=== PATIENT | male | born 1955 | race Caucasian/White ===

== ENCOUNTER → 2016-10-12 | Outpatient (REF) | payer BC ==
[~2016-10-12] MED LIST: ASPI1TAB PO; ASPI81CH PO; ASPI81TA21 PO; ATEN25TA PO; ATOR40TA PO; CARV3.12 PO; INSUH10VL SC; INSULANT SC; K-TA1TAB PO; LANTINJ4 SC; LASI40TA PO; METF500T4 PO; NICO21PAT TD; NITR4TASL SL; NOVOINJ3 SC; RAMI10CA PO; novolog SQ
[2016-10-12 17:15] LABS: ALBUMIN 3.5 GM/DL (3.2-5.2); ALBUMIN/GLOBULIN RATIO 1.03 (1.00-1.93); BILIRUBIN,TOTAL 0.3 MG/DL (0.2-1.0); CALCIUM LEVEL 8.6 MG/DL (8.8-10.2); CREATININE FOR GFR 1.51 MG/DL (0.70-1.30); GLOMERULAR FILTRATION RATE 50.1 (>49); POTASSIUM SERUM 4.6 MEQ/L (3.5-5.1); TOTAL PROTEIN 6.9 GM/DL (6.4-8.2)
== END ==
LOC: M SFHCLACO 08:04
PROVIDERS: ATTEND Physician Assistant
DX: I10 Essential (primary) hypertension (principal); E78.2 Mixed hyperlipidemia; E11.65 Type 2 diabetes mellitus with hyperglycemia

== ENCOUNTER → 2017-01-16 | Outpatient (REF) | payer BC ==
[2017-01-16 15:58] LABS: ALBUMIN 3.5 GM/DL (3.2-5.2); ALBUMIN/GLOBULIN RATIO 1.09 (1.00-1.93); BILIRUBIN,TOTAL 0.3 MG/DL (0.2-1.0); CALCIUM LEVEL 8.8 MG/DL (8.8-10.2); CREATININE FOR GFR 1.43 MG/DL (0.70-1.30); GLOMERULAR FILTRATION RATE 53.3 (>49); POTASSIUM SERUM 4.4 MEQ/L (3.5-5.1); TOTAL PROTEIN 6.7 GM/DL (6.4-8.2)
== END ==
LOC: M SFHCLACO 08:02
PROVIDERS: ATTEND Physician Assistant
DX: I10 Essential (primary) hypertension (principal); E78.2 Mixed hyperlipidemia; E11.65 Type 2 diabetes mellitus with hyperglycemia

== ENCOUNTER → 2017-08-23 | Outpatient (REF) | payer OTHER, MEDICAID ==
[~2017-08-23] MED LIST changes: -ATOR40TA PO; +ATOR40TA75 PO
[2017-08-23 15:45] LABS: ALBUMIN 3.2 GM/DL (3.2-5.2); ALBUMIN/GLOBULIN RATIO 0.97 (1.00-1.93); ALKALINE PHOSPHATASE 99 U/L (45-117); ALT/SGPT 21 U/L (12-78); ANION GAP 5 MEQ/L (8-16); AST/SGOT 20 U/L (7-37); BILIRUBIN,TOTAL 0.2 MG/DL (0.2-1.0); BLOOD UREA NITROGEN 30 MG/DL (7-18); CALCIUM LEVEL 8.8 MG/DL (8.8-10.2); CARBON DIOXIDE LEVEL 28 MEQ/L (21-32); CHLORIDE LEVEL 115 MEQ/L (98-107); CHOLESTEROL LEVEL 128 MG/DL (<200); CREATININE FOR GFR 1.21 MG/DL (0.70-1.30); GLOMERULAR FILTRATION RATE > 60.0 (>49); GLUCOSE, FASTING 150 MG/DL (80-110); POTASSIUM SERUM 4.1 MEQ/L (3.5-5.1); SODIUM LEVEL 148 MEQ/L (136-145); TOTAL PROTEIN 6.5 GM/DL (6.4-8.2); TRIGLYCERIDES LEVEL 119 MG/DL (<150)
== END ==
LOC: M SFHCLACO 09:07
PROVIDERS: ATTEND Physician Assistant
DX: I10 Essential (primary) hypertension (principal); E78.2 Mixed hyperlipidemia; E11.65 Type 2 diabetes mellitus with hyperglycemia

== ENCOUNTER → 2018-03-19 | Outpatient (REF) | payer OTHER, MEDICAID ==
[2018-03-19 15:27] LABS: ALBUMIN 3.3 GM/DL (3.2-5.2); ALBUMIN/GLOBULIN RATIO 0.97 (1.00-1.93); ALKALINE PHOSPHATASE 120 U/L (45-117); ALT/SGPT 35 U/L (12-78); ANION GAP 8 MEQ/L (8-16); AST/SGOT 33 U/L (7-37); BILIRUBIN,TOTAL 0.2 MG/DL (0.2-1.0); BLOOD UREA NITROGEN 41 MG/DL (7-18); CALCIUM LEVEL 8.2 MG/DL (8.8-10.2); CARBON DIOXIDE LEVEL 28 MEQ/L (21-32); CHLORIDE LEVEL 114 MEQ/L (98-107); CHOLESTEROL LEVEL 108 MG/DL (<200); CHOLESTEROL RISK RATIO 3.375 (<5); GLOMERULAR FILTRATION RATE 50.2 (>49); GLUCOSE, FASTING 93 MG/DL (70-100); HDL CHOLESTEROL 32 MG/DL (>40); LDL CHOLESTEROL 48.8 MG/DL (<100); NON-HDL-C 76 MG/DL; POTASSIUM SERUM 4.5 MEQ/L (3.5-5.1); SODIUM LEVEL 150 MEQ/L (136-145); TOTAL PROTEIN 6.7 GM/DL (6.4-8.2); TRIGLYCERIDES LEVEL 136 MG/DL (<150)
[2018-03-19 15:30] LABS: ESTIMATED AVERAGE GLUCOSE 189 MG/DL (60-110); HEMOGLOBIN A1c 8.2 %
== END ==
LOC: M SFHCLACO 08:07
DX: I10 Essential (primary) hypertension (principal); E78.2 Mixed hyperlipidemia
CPT/HCPCS: 80053

== ENCOUNTER → 2018-04-25 | Outpatient (REF) | payer OTHER, MEDICAID ==
[2018-04-25 15:00] LABS: ANION GAP 9 MEQ/L (8-16); BLOOD UREA NITROGEN 65 MG/DL (7-18); CALCIUM LEVEL 8.8 MG/DL (8.8-10.2); CARBON DIOXIDE LEVEL 24 MEQ/L (21-32); CHLORIDE LEVEL 115 MEQ/L (98-107); CREATININE FOR GFR 2.14 MG/DL (0.70-1.30); GLOMERULAR FILTRATION RATE 33.3 (>49); GLUCOSE, FASTING 57 MG/DL (70-100); POTASSIUM SERUM 4.5 MEQ/L (3.5-5.1); SODIUM LEVEL 148 MEQ/L (136-145)
== END ==
LOC: M SFHCLACO 08:25
DX: R60.9 Edema, unspecified (principal)
CPT/HCPCS: 80048

== ENCOUNTER → 2019-02-06 | Outpatient (CLI) | payer MEDICARE, MEDICAID ==
[~2019-02-06] MED LIST changes: -ASPI1TAB PO; -ASPI81CH PO; +ASPI81CH49 PO; +ASPI81TA26 PO; -LASI40TA PO; +LASI40TA9 PO; +NICO21DI3 TD; -NICO21PAT TD; -RAMI10CA PO; +RAMI1CAP26 PO
--- NOTE | 2019-02-06 12:59 | REP ---
Duplex carotid sonography: History: Occlusion and stenosis. Comparison study is from March 29, 2015. Findings: Antegrade flow was observed in both vertebral arteries. Right carotid: The right common carotid artery is unremarkable on two-dimensional scanning. Mild intimal thickening is seen. There is mixed plaquing in the bulb, proximal ICA and proximal ECA on the right side. Color flow and spectral Doppler interrogation demonstrate elevated systolic and mildly elevated diastolic velocities in the ICA on the right side. Velocity chart right carotid: CCA PSV 117 cm/s ICA PSV 166 cm/s ICA EDV 48 cm/s ECA PSV 85 cm/s Right ICA/CCA ratio 1.4. Impression: Elevated systolic velocities in the ICA consistent with 50-79% category narrowing, probably near the lower end of this range. Velocities have increased in the right ICA compared to the prior study. Left carotid: Left common carotid artery shows diffuse intimal thickening. There is moderate mixed plaquing in the bulb and proximal ICA on the left side on two-dimensional scanning. Color flow and spectral Doppler interrogation show normal waveforms and velocities unchanged from the prior study. Velocity chart left carotid: CCA PSV 54 cm/s ICA PSV 99 cm/s ICA EDV 31 cm/s ECA PSV 124 cm/s Left ICA/CCA ratio 1.8. Impression: 16-49% category narrowing in the left ICA by Doppler velocity criteria, probably near the upper end of this range. Electronically Signed by Tao Arrington MD 02/06/2019 02:03 P
== END ==
LOC: M RAD 10:00
PROVIDERS: ATTEND Physician Assistant
DX: I65.23 Occlusion and stenosis of bilateral carotid arteries (principal)

== ENCOUNTER → 2019-02-13 | Outpatient (REF) | payer MEDICARE | LOC: M SFHCLACO 15:27 | PROVIDERS: ATTEND Physician Assistant | DX: L02.93 Carbuncle, unspecified (principal) | CPT/HCPCS: 87070; 87077; 87186; G0463 ==

== ENCOUNTER → 2019-08-01 | Outpatient (CLI) | payer MEDICAID, MEDICARE ==
[~2019-08-01] MED LIST changes: +METF-791 PO; -METF500T4 PO
--- NOTE | 2019-08-01 09:01 | REP ---
Duplex extremity venous ultrasound: Right lower extremity. History: Cellulitis right lower limb. Rule out DVT. Findings: The deep veins are anechoic and fully compressible from the groin to the popliteal fossa in the right lower extremity. Color flow imaging is homogeneous. Spectral Doppler interrogation demonstrates intact respiratory variation in flow and normal manual augmentation of flow. There is no evidence of deep vein thrombosis. Atherosclerotic calcific plaquing is noted incidentally in the arterial system adjacent to the veins. Impression: Negative right lower extremity duplex venous ultrasound. No evidence of deep vein thrombosis. Electronically Signed by Tao Arrington MD 08/01/2019 08:53 A
== END ==
LOC: M RAD 07:57
PROVIDERS: ATTEND Physician Assistant
DX: L03.115 Cellulitis of right lower limb (principal); M79.604 Pain in right leg

== ENCOUNTER → 2019-08-14 | Outpatient (CLI) | payer MEDICAID, MEDICARE ==
--- NOTE | 2019-08-15 07:22 | REP ---
BILATERAL LOWER EXTREMITY DUPLEX DOPPLER ARTERIAL ULTRASOUND: Real-time ultrasound evaluation and duplex Doppler interrogation of bilateral lower arterial systems is performed. BUTCH right is 0.50 and left 0.68. There are bilateral external iliac artery stents present which are patent, with normal flow velocities. Extensive calcific and soft plaque is seen throughout the bilateral lower extremity arterial systems. There appears to be stenosis of the bilateral profunda arteries more so on the right than on the left. There also appears to be stenosis of the mid superficial femoral arteries bilaterally, left greater than right. There is occlusion of the right popliteal artery with reconstitution distally via the proximal anterior tibial artery. There is reversal of flow at that level. Biphasic wave forms are seen in the right common femoral artery and profunda with monophasic wave forms more distally. Biphasic wave forms are seen in the left common femoral, profunda and superficial femoral arteries with monophasic wave forms distal to that except in the posterior tibial artery. Right Left Common femoral artery 94.9 cm/s 168 cm/s Profunda 390 cm/s 280 cm/s Proximal SFA 108 cm/s 147 cm/s Mid SFA 221 cm/s 382 cm/s Distal SFA 48.3 cm/s 157 cm/s Popliteal Occluded 107 cm/s Proximal OSMEL 69.4 cm/s reversed 67.7 cm/s Tibioperoneal trunk 40 cm/s 66.8 cm/s Proximal FENCE SETTER 14.7 cm/s 74.6 cm/s Distal FENCE SETTER 25.2 cm/s 40 cm/s Distal OSMEL 20.3 cm/s 21.6 cm/s IMPRESSION: Significant plaquing bilaterally diffusely with suspected stenosis of the bilateral profunda arteries, right greater than left, and mid superficial femoral arteries left greater than right. There is occlusion of the right popliteal artery with reconstitution of the proximal right anterior tibial artery. Electronically Signed by Christiano Juarez MD 08/15/2019 05:04 P
== END ==
LOC: M RAD 14:22
PROVIDERS: ATTEND Surgery Vascular Surgery
DX: I70.203 Unspecified atherosclerosis of native arteries of extremities, bilateral legs (principal); I70.235 Atherosclerosis of native arteries of right leg with ulceration of other part of foot
CPT/HCPCS: 93925; G0463

== ENCOUNTER → 2019-08-18 | Outpatient (CLI) | payer MEDICARE ==
[2019-08-18 10:17] LABS: HEMATOCRIT 40.7 % (42.0-52.0); HEMOGLOBIN 12.7 g/dl (13.5-17.5); MEAN CORPUSCULAR HEMOGLOBIN 30.8 pg (27.0-33.0); MEAN CORPUSCULAR HGB CONC 31.2 g/dl (32.0-36.5); MEAN CORPUSCULAR VOLUME 98.8 fl (80.0-96.0); PLATELET COUNT, AUTOMATED 124 10^3/uL (150-450); RED BLOOD COUNT 4.12 10^6/uL (4.30-6.10); WHITE BLOOD COUNT 8.6 10^3/uL (4.0-10.0)
[2019-08-18 10:31] LABS: CALCIUM LEVEL 8.6 MG/DL (8.8-10.2); CREATININE FOR GFR 2.04 MG/DL (0.70-1.30); GLOMERULAR FILTRATION RATE 35.1 (>49); POTASSIUM SERUM 5.1 MEQ/L (3.5-5.1)
== END ==
LOC: M LAB 09:31
PROVIDERS: ATTEND Physician Assistant
DX: Z01.818 Encounter for other preprocedural examination (principal)

== ENCOUNTER → 2019-09-01 | Outpatient (CLI) | payer MEDICARE ==
[~2019-09-01] MED LIST changes: +ACETAMINOPHEN 325 MG TAB As Ordered ONE; +HEPARIN 1,000 UNITS/ML 10ML VIAL (FOR RADIOLOGY& DIALYSIS ONLY) As Ordered ONE; +ISOVUE-300 61% 50ML VIAL (Q9967) As Ordered ONE; +LIDOCAINE 1% MDV 20ML VIAL As Ordered ONE; +MIDAZOLAM INJ 2 MG/2 ML VIAL (J2250) As Ordered ONE; +ceFAZolin 1GM INJ (J0690 PER 500MG) As Ordered ONE; +fentaNYL 100 MCG/2 ML INJECTION (J3010) As Ordered ONE
[2019-09-01 09:14] LABS: HEMATOCRIT 42.7 % (42.0-52.0); HEMOGLOBIN 13.1 g/dl (13.5-17.5); MEAN CORPUSCULAR HEMOGLOBIN 30.3 pg (27.0-33.0); MEAN CORPUSCULAR HGB CONC 30.7 g/dl (32.0-36.5); MEAN CORPUSCULAR VOLUME 98.8 fl (80.0-96.0); PLATELET COUNT, AUTOMATED 119 10^3/uL (150-450); RED BLOOD COUNT 4.32 10^6/uL (4.30-6.10); WHITE BLOOD COUNT 8.2 10^3/uL (4.0-10.0)
[2019-09-01 09:35] LABS: CREATININE FOR GFR 1.7 MG/DL (0.70-1.30); GLOMERULAR FILTRATION RATE 43.3 (>49); POTASSIUM SERUM 4.5 MEQ/L (3.5-5.1)
--- NOTE | 2019-09-01 12:45 | ROOPDOC ---
[facility] Report Of Operation Report of Operation DATE OF PROCEDURE: 09/01/19 PREPROCEDURE DIAGNOSES: Right lower extremity atherosclerosis of the [place] arteries with nonhealing wounds right toes POSTPROCEDURE DIAGNOSES: Same PROCEDURE: 1. Ultrasound-guided access left femoral limb of aortobifemoral bypass graft 2. Aortoiliac arteriogram 3. Right lower extremity arteriogram and runoff through selection of right limb of aortobifemoral bypass graft, right superficial femoral artery 4. Angioplasty right distal common femoral artery and proximal SFA 5. Completion arteriograms 6. Mynx closure left femoral limb of aortobifemoral bypass graft SURGEON: Vern Gould MD ANESTHESIA: Local anesthesia 12 mL lidocaine. Monitored intravenous conscious sedation was supervised by Dr. Gould. The patient was independently monitored by registered nurse assigned to the Department of radiology using automated blood pressure, EKG, and pulse oximetry. The detailed sedation record is permanently housed in the hospital information system. The following is a brief sedation record: Ancef 2 g IV, Fentanyl 50 g IV, Versed 1 mg IV, heparin 5000 units IV. INDICATION FOR PROCEDURE: Mr. Medina is a very pleasant 64-year-old gentleman with an extensive past medical history of peripheral vascular disease. He has had interventions on his lower extremities in the past, but is unclear what they were. He says they were procedures to open up blockages in the groins. Based on this we were unsure what previous surgery had been done, but we discussed that there may be multiple options to try to revascularize the right lower extremity depending on what we found on arteriogram. We also discussed that he may need an open procedure but we would attempt to do everything endovascularly if possible. Risks benefits and alternatives to an arteriogram potential intervention were explained to the patient. He was agreeable to proceed. Informed consent was obtained. INTERPRETATION: 1. The patient has a patent aortobifemoral bypass. The orientation of the bypass is unusual, with the left limb in the typical straight orientation with anastomosis to the common femoral artery, but the right limb is unusual in that it is tunneled with the left limb towards the left groin and then crosses over the midline suprapubic area for a right femoral anastomosis. 2. The right femoral anastomosis is widely patent. There is good runoff through the profunda. There is an 80% focal stenosis distal to the anastomosis at the distal common femoral/proximal superficial femoral artery. 3. The superficial femoral arteries calcified throughout, but no significant stenoses are noted distal to the origin until Hank's canal with there is a great deal of heavy calcified plaque, and several focal near lucid stenoses. 4. Popliteal arteries patent at its origin but then occludes for 2 cm in the proximal mid aspect, and reconstitutes through collaterals with good tibial runoff. 5. After angioplasty of the distal common femoral and proximal superficial femoral artery with a 4 x 100 Deshawn balloon, there was a dramatic improvement in inflow through the SFA and we were able to maintain flow through the profunda as well. 6. We were able to cross through the stenoses in the distal SFA at Hank's canal and through the chronic total occlusion in the popliteal artery, but we were unable to track a balloon down to angioplasty due to limitations from a physics standpoint from going up and over through the tight bifurcation of the bypass graft. REPORT OF OPERATION: The patient was brought to the angiographic suite in stable condition. His bilateral groins were prepped and draped in a sterile fashion. A timeout was performed. Antibiotics and sedation were administered without complication. Upon examination with ultrasound in the left groin, it was difficult to tell what type of bypass the patient had had. I was able to track from the anastomosis up over the left limb of the bypass graft, but then sought a second limb it was unclear if this was a loop or separate graft. It did not appear to connect the graft anastomosed to the left femoral, still we were unclear initially what type of surgery the patient had for revascularization in the past. We therefore placed a wire in a microcatheter, and through this access a Glidewire was advanced into the mid aorta and the sheath was exchanged over the wire for a 4 [place] sheath. The sheath was flushed with saline. An Omni flushed catheter was advanced into the mid aorta and an arteriogram was performed. This clarified the orientation of the bypass, please see interpretation above. Upon noting the stenosis in the distal common femoral and proximal SFA, we felt it would be difficult to try to access antegrade at the bypass graft on the right due to the challenges from a physics standpoint trying to pass the wire into the SFA from that angle, as it would prefer to track into the profunda. We therefore decided to try to go up and over the bifurcation to obtain better images. A Glidewire and Omni flushed catheter were used to go up and over the bifurcation of the bypass graft and we were able to track the catheter down to the distal graft just proximal to the anastomosis. From this access we performed an arteriogram, please see findings above. Next we were able to use an angled glide cath and the Glidewire to select the right SFA. This took a considerable amount of time, due to the stenosis. Eventually, we were able to navigate the wire away from the profunda and into the SFA. We then performed additional runoff images of the right lower extremity. Please see findings above. Next, we attempted to cross the chronic total occlusion in the right popliteal artery with an O18 Glidewire advantage. I was able to navigate the wire down through the chronic occlusion, but then could not track a balloon over the wire. I felt the only option we have had to try to get a balloon to pass down would be to get a sheath up and over within the graft. I had a feeling this would be impossible, but we thought we would try at least once. I used Amplatz superstiff to try to go up and over the bifurcation but it was unsuccessful and we could not track the sheath up and over. With this attempt aborted, I again tried to track the balloon down over the Glidewire advantage after re-crossing and exchanging through the glide cath. We were not able to pass the balloon distally. However, I was able to pass a 4 x 100 Deshawn balloon across the anastomosis and the stenosis in the SFA. We angioplastied for three-minute inflations A and following this there was improvement in inflow through the SFA. No extravasation, dissection, or embolization was noted. The profunda was still patent. Unfortunately, I do not think this will be enough to heal the patient's foot and he will need additional intervention. Unfortunately, we utilized a significant amount of time today trying to intervene from the left side, and I think we will need to bring the patient back to perform an antegrade access on the right SFA and see if we can treat the distal disease. Additionally, I do not want to give him a significant amount of additional contrast due to his renal insufficiency. It would be better if he had a break for hydration in between procedures. A minx closure device was deployed at the left groin after exchanging the sheath over the Glidewire for 5 Australian sheath and flushed with saline. Pressure was held for 10 minutes for good hemostasis and the patient was taken to recovery in stable condition. This was a challenging case from a physics standpoint but the patient did very well and there were no com plications. We used as little IV dye is possible due to his renal insufficiency and gave him considerable hydration during the case. ESTIMATED BLOOD LOSS: Approximately 10 mL. COMPLICATIONS: None. PLAN: Our plan will be to bring the patient back for an attempted right lower extremity angioplasty of the distal superficial femoral artery and mid popliteal artery occlusion from a right superficial femoral artery antegrade access. Okay to resume home medications. Patient should stay hydrated after procedure. VERN GOULD MD Sep 01, 2019 12:45
[2019-09-01 16:10] VITALS: BP 116/66
== END ==
LOC: M IRPRO 08:46
PROVIDERS: ATTEND Surgery Vascular Surgery
DX: I70.235 Atherosclerosis of native arteries of right leg with ulceration of other part of foot (principal); L97.519 Non-pressure chronic ulcer of other part of right foot with unspecified severity; I70.92 Chronic total occlusion of artery of the extremities
CPT/HCPCS: 37224; 75710; 80048; 85027; 99152; 99153; C1725; C1729; C1760; C1769; C1887; C1894; J0690; J2250; J3010; Q9967

== ENCOUNTER → 2019-09-05 | Outpatient (CLI) | payer MEDICARE ==
[~2019-09-05] MED LIST changes: -ACETAMINOPHEN 325 MG TAB As Ordered ONE; -ceFAZolin 1GM INJ (J0690 PER 500MG) As Ordered ONE
--- NOTE | 2019-09-05 15:38 | ROOPDOC ---
[facility] Report Of Operation Report of Operation DATE OF PROCEDURE: 09/05/19 PREPROCEDURE DIAGNOSES: Atherosclerosis the teller vessels of the right lower extremity with nonhealing wounds right toes POSTPROCEDURE DIAGNOSES: Same PROCEDURE: 1. Antegrade access right superficial femoral artery 2. Right lower extremity arteriogram, selection of popliteal artery and runoff 3. Angioplasty right superficial femoral artery and popliteal artery with 4 x 100 [place] balloon and 5 x 200 [place] balloon 4. Angioplasty right anterior tibial artery with 3 x 220 Deshawn balloon 5. Angioplasty distal anterior tibial artery and dorsal pedis artery with 2 x 100 Deshawn balloon 6. Completion arteriograms 7. Mynx closure right superficial femoral artery SURGEON: Vern Gould MD ANESTHESIA: Local anesthesia 5 mL lidocaine. Moderate intravenous conscious sedation was supervised by Dr. Gould. The patient was independently monitored by registered nurse assigned to the Department of radiology using automated blood pressure, EKG, pulse oximetry. The detailed sedation record is permanently stored in the hospital information system. The following is a brief sedation record: Start time 13:39, stop time 14:49, fentanyl 50 g IV, Versed 1 mg IV, heparin 5000 units IV. CONTRAST: 29 mL Isovue-300 INDICATION FOR PROCEDURE: Mr. Medina is a very pleasant 64-year-old patient with severe right lower extremity peripheral vascular disease and nonhealing ulcerations of the second third toes. He underwent an arteriogram and angioplasty of the right common femoral and superficial femoral artery from a left femoral access up and over through his aortobifem bypass graft to improve flow through the anastomosis. Unfortunately, due to limitations of going up and over through bypass graft, we were not able to access and cross the chronic total occlusion and the popliteal artery or treat the distal SFA disease or tibial disease. We'll bring the patient back today for an antegrade access the right lower extremity to try to open up the distal SFA stenosis, the popliteal artery total occlusion, and anterior tibial artery stenosis. Risks benefits and alternatives were explained to the patient he was agreeable to proceed. Informed consent was obtained. INTERPRETATION: 1. There is heavy plaque with variable 30-50% stenosis through Hank's canal the distal SFA. The popliteal arteries patent ocdal-mad-xrug, then there is a 3 cm occlusion in the midportion and this reconstitutes through collateral circulation below the knee. The main runoff to the foot is through the posterior tibial artery and peroneal, but the anterior tibial artery is thready. 2. After crossing the chronic total occlusion in the right popliteal artery and angioplasty of the distal SFA and popliteal artery, there is widely patent inflow through both. Less than 20% residual stenosis is present in the areas of heaviest plaque. No dissection embolization or extravasation are noted. 3. After angioplasty of the anterior tibial artery dorsal pedis artery, there is widely patent inflow through 3 vessels to the foot with some microvascular disease noted in the distal dorsal pedis artery. No embolization dissection or extravasation is noted. REPORT OF PROCEDURE: Mr. Medina was brought to the angiographic suite in stable condition and placed supine on the fluoroscopic table. His bilateral groins were prepped and draped in a sterile fashion. A timeout was performed. Sedation was administered without complication. Local anesthesia was administered to the skin and subcutaneous tissue over the right common femoral and superficial femoral artery. A microneedle was used to access the superficial femoral artery under ultrasound guidance just distal to the femoral limit the bypass graft anastomosis. A wire was passed through this access under fluoroscopic guidance the needle was removed. A micro-sheath was placed and a Glidewire was advanced through this under fluoroscopic guidance to the distal SFA. We then exchange the sheath for 6 Hebrew sheath over the wire using a Seldinger technique and flushed the sheath with saline. Arteriogram was performed. Please see interpretation above. An Omni flushed catheter was used to help traverse the distal aspect of the SFA and then to cross through the total occlusion and the popliteal artery. Once we felt we had her catheter in the true lumen through the occlusion, a injection of contrast confirmed we're in the true lumen with no embolization. We then angioplasties across the area with a 4 x 100 [place] balloon and sequential three-minute inflations. Following this was a dramatic improvement in flow but still some residual stenosis and we selected a 5 x 200 [place] balloon angioplasty across from the distal popliteal artery to Hank's canal. Three- minute inflation was performed and following this there is a dramatic improvement in flow. There was still a little bit of residual stenosis in the areas of heaviest plaque, but overall this is significantly improved. Next, we use a Glidewire advantage to cross into the anterior tibial artery and to cross distally. Unfortunately, was difficult for the wire to past likely due to heavy calcified near occlusions. A [place] catheter helped just across into the dorsal pedis artery. We then angioplasty along the length of the vessel with a 3 x 200 Deshawn balloon. We initially had to start high and work our way down nor to get the balloon past the near occlusions. Eventually we were able to three- minute inflations across the entire vessel. Following this the vessel was widely patent but there still was limited outflow due to some disease in the dorsal pedis artery. We advanced her wire into the midfoot and angioplasty the distal anterior tibial artery and proximal dorsal pedis artery with 2 x 100 Deshawn balloon for three-minute inflation. Following this was a dramatic improvement in flow with 3 vessel runoff to the foot however there is still some microvascular disease noted more distally in the dorsal pedis artery, but this is not amenable to endovascular intervention. I think this mormon of flow should help the patient and hopefully will allow his foot to heal. We concluded her procedure. Applying a Mynx closure device in the right superficial femoral artery and pressure was held for 10 minutes for good hemostasis. The patient was taken to recovery in stable condition. ESTIMATED BLOOD LOSS: Approximately 5 mL. COMPLICATIONS: None. PLAN: Resume home medications. Follow up in clinic to check perfusion and right and left groin access sites. Patient should follow up with his pcu rn regarding the second and third toe nonhealing ulcerations. VERN GOULD MD Sep 05, 2019 15:38
[2019-09-05 17:53] VITALS: BP 151/67
== END ==
LOC: M IRPRO 12:06
PROVIDERS: ATTEND Surgery Vascular Surgery
DX: I70.238 Atherosclerosis of native arteries of right leg with ulceration of other part of lower leg (principal); I70.92 Chronic total occlusion of artery of the extremities; I10 Essential (primary) hypertension; E11.51 Type 2 diabetes mellitus with diabetic peripheral angiopathy without gangrene; E78.00 Pure hypercholesterolemia, unspecified; F17.210 Nicotine dependence, cigarettes, uncomplicated; Z79.899 Other long term (current) drug therapy; Z79.82 Long term (current) use of aspirin; Z95.0 Presence of cardiac pacemaker; Z96.1 Presence of intraocular lens; Z98.41 Cataract extraction status, right eye; Z98.42 Cataract extraction status, left eye; Z95.5 Presence of coronary angioplasty implant and graft
CPT/HCPCS: 37224; 37228; 75710; 99152; 99153; C1725; C1729; C1760; C1769; C1887; C1894; J2250; J3010; Q9967

== ENCOUNTER → 2019-10-08 | Outpatient (CLI) | payer MEDICARE ==
[~2019-10-08] MED LIST changes: -HEPARIN 1,000 UNITS/ML 10ML VIAL (FOR RADIOLOGY& DIALYSIS ONLY) As Ordered ONE; -ISOVUE-300 61% 50ML VIAL (Q9967) As Ordered ONE; -LIDOCAINE 1% MDV 20ML VIAL As Ordered ONE; -MIDAZOLAM INJ 2 MG/2 ML VIAL (J2250) As Ordered ONE; -fentaNYL 100 MCG/2 ML INJECTION (J3010) As Ordered ONE
--- NOTE | 2019-10-08 16:13 | REP ---
ARTERIAL ULTRASOUND: Real-time ultrasound evaluation and duplex Doppler interrogation of bilateral lower extremity arterial systems is performed. There is a fluid collection in the right inguinal region. 8.2 x 3.6 x 1.9 cm. Velocity in the right external iliac artery is 173 cm/s. Large amount of calcified plaque in the right common femoral artery occludes the lumen and precludes evaluation. Distal to that there is diffuse monophasic wave forms. There is stenosis of the right profunda artery. No other obvious stenosis is seen distal to that and there is no arterial occlusion more distally. On the left there is an iliofemoral bypass graft which is patent with normal flow velocities. This demonstrates monophasic wave forms. There is significant calcific plaque at the bifurcation of the common femoral artery. There is significant narrowing of the left profunda artery and origin of superficial femoral artery but no compelling evidence for hemodynamically significant stenosis. Normal flow velocities are seen throughout the left lower extremity arterial system with diffuse monophasic wave forms, without diastolic flow. There is high diastolic flow throughout the right lower extremity arterial system. RIGHT LEFT Common femoral artery Obscured by calcific plaque 156 cm/s Profunda 265 cm/s 117 cm/s Proximal SFA 106 cm/s 139 cm/s Mid SFA 119 cm/s 124 cm/s Distal SFA 101 cm/s 120 cm/s Popliteal 89 cm/s 81 cm/s Proximal OSMEL 54 cm/s 37 cm/s Tibioperoneal trunk 77 cm/s 100 cm/s Proximal [employer] 111 cm/s 125 cm/s Distal [employer] 75 cm/s 86 cm/s Distal OSMEL 45 cm/s 67 cm/s Electronically Signed by Christiano Juarez MD 10/08/2019 05:41 P
== END ==
LOC: M RAD 12:38
PROVIDERS: ATTEND Physician Assistant
DX: I70.203 Unspecified atherosclerosis of native arteries of extremities, bilateral legs (principal); I70.235 Atherosclerosis of native arteries of right leg with ulceration of other part of foot; F17.200 Nicotine dependence, unspecified, uncomplicated

== ENCOUNTER → 2019-11-24 | Outpatient (REF) | payer MEDICARE ==
[~2019-11-24] MED LIST changes: +ATOR80TA59 PO; +CEPH500C PO; +FURO20TA2 PO; +HYDR-3713 PO; +POTA20TA6 PO; +SANT250O8 TOP; +TRES1INJ SC
[2019-11-24 13:56] LABS: HEMATOCRIT 38.4 % (42.0-52.0); HEMOGLOBIN 12.1 g/dl (13.5-17.5); MEAN CORPUSCULAR HGB CONC 31.5 g/dl (32.0-36.5); PLATELET COUNT, AUTOMATED 171 10^3/uL (150-450); RED BLOOD COUNT 4.04 10^6/uL (4.30-6.10); WHITE BLOOD COUNT 7.5 10^3/uL (4.0-10.0)
[2019-11-24 14:06] LABS: ALBUMIN 3.3 GM/DL (3.2-5.2); BILIRUBIN,TOTAL 0.3 MG/DL (0.2-1.0); CALCIUM LEVEL 8.8 MG/DL (8.8-10.2); CREATININE FOR GFR 1.53 MG/DL (0.70-1.30); GLOMERULAR FILTRATION RATE 48.9 (>49); POTASSIUM SERUM 5.1 MEQ/L (3.5-5.1)
== END ==
LOC: M SFHCPLAZ 11:05
PROVIDERS: ATTEND Internal Medicine
DX: Z01.818 Encounter for other preprocedural examination (principal); I73.9 Peripheral vascular disease, unspecified; I10 Essential (primary) hypertension
CPT/HCPCS: 36415; 80053; 85027; G0463

== ENCOUNTER 2019-11-26 11:00 | Day surgery (SDC) | payer MEDICARE ==
[~2019-11-26] VITALS: Ht 177.8 cm; Wt 86.2 kg
[~2019-11-26 11:00] MED LIST changes: +BUPIVACAINE HCL 0.5% 10 ML VIAL As Ordered ONE; -HYDR-3713 PO; +LIDOCAINE 1% MDV 20ML VIAL As Ordered ONE; +LIDOCAINE 1% MDV 20ML VIAL SQ PRN; +ceFAZolin SOD 2 GM in IV 1 EA IV ONE
[2019-11-26] MEDS ORDERED: LIDOCAINE 2% INJ 100 MG/5 ML SDV (FOR ANES.) As Ordered ONE (12:04)
[2019-11-26] MEDS ORDERED: ONDANSETRON 4MG/2ML VIAL (J2405) As Ordered ONE (12:04)
[2019-11-26] MEDS ORDERED: propofoL 200 MG/20 ML VIAL As Ordered ONE (12:04)
[2019-11-26] MEDS ORDERED: MIDAZOLAM INJ 2 MG/2 ML VIAL (J2250) As Ordered ONE (12:04)
[2019-11-26] MEDS ORDERED: fentaNYL 100 MCG/2 ML INJECTION (J3010) As Ordered ONE (12:05)
[2019-11-26] MEDS ORDERED: LR 1,000 ML IV ONE (14:00)
[2019-11-26] MEDS ORDERED: DEXTROSE 50% 50 ML SYRINGE As Ordered ONE (14:20)
[2019-11-26] MEDS ORDERED: DEXTROSE 50% 50 ML SYRINGE IV ONE (14:30)
[2019-11-26] MEDS ORDERED: HYDR-3713 PO (16:14)
[2019-11-26 17:50] VITALS: BP 163/72
== END 2019-11-26 17:55 | disposition home or self-care (01) ==
LOC: M SDC 11:00
PROVIDERS: ATTEND Podiatrist Foot & Ankle Surgery
DX: L89.899 Pressure ulcer of other site, unspecified stage (principal); I10 Essential (primary) hypertension; I25.2 Old myocardial infarction; E10.9 Type 1 diabetes mellitus without complications; Z79.4 Long term (current) use of insulin; Z79.899 Other long term (current) drug therapy; D64.9 Anemia, unspecified; Z98.61 Coronary angioplasty status; I25.10 Atherosclerotic heart disease of native coronary artery without angina pectoris; Z95.0 Presence of cardiac pacemaker; F17.218 Nicotine dependence, cigarettes, with other nicotine-induced disorders
CPT/HCPCS: 28820; 88305; J0690; J2250; J2405; J3010

== ENCOUNTER 2020-02-03 10:12 | Inpatient (IN) | payer MEDICARE ==
[~2020-02-03] VITALS: Ht 177.8 cm; Wt 92.4 kg
[~2020-02-03 10:12] MED LIST changes: -BUPIVACAINE HCL 0.5% 10 ML VIAL As Ordered ONE; +HYDR-3713 PO; -LIDOCAINE 1% MDV 20ML VIAL As Ordered ONE; -LIDOCAINE 1% MDV 20ML VIAL SQ PRN; -METF-791 PO; +METF-838 PO; -ceFAZolin SOD 2 GM in IV 1 EA IV ONE
[2020-02-03] MEDS ORDERED: CEPH500C PO (10:21)
[2020-02-03] MEDS ORDERED: NS 1,000 ML IV ONE (10:45)
[2020-02-03] MEDS ORDERED: PIPERACILLIN/TAZOBACTAM SOD 3.375 GM in D5W MINI-BAG PLUS 50 ML IV ONE (11:00)
--- NOTE | 2020-02-03 11:23 | REP ---
Right lower extremity Duplex Doppler venous ultrasound: Real time compression and duplex Doppler interrogation of the right lower extremity deep venous system is performed. The right common femoral, superficial femoral and popliteal veins are fully compressible with transducer pressure and demonstrate normal spontaneous and phasic flow, without evidence of deep venous thrombosis. Impression: No evidence of deep venous thrombosis of the right lower extremity femoral popliteal venous system. Fluid in the right inguinal region has decreased since the September 2019 exam , measuring 4.0 x 0.7 x 2.0 cm. There are two right inguinal lymph nodes seen, measuring 2.2 x 0.8 x 1.4 cm and 3.0 x 0.8 x 1.4 cm. Electronically Signed by Christiano Juarez MD 02/03/2020 11:16 A
[2020-02-03 11:26] LABS: BASO % 0.3 % (0.0-1.0); EOS # 0.3 10^3/uL (0.0-0.5); EOS % 2.1 % (0.0-3.0); HEMATOCRIT 33.9 % (42.0-52.0); HEMOGLOBIN 10.9 g/dl (13.5-17.5); LYMPH # 1.2 10^3/uL (1.5-5.0); LYMPH % 9.4 % (24.0-44.0); MEAN CORPUSCULAR HEMOGLOBIN 29.1 pg (27.0-33.0); MEAN CORPUSCULAR HGB CONC 32.2 g/dl (32.0-36.5); MEAN CORPUSCULAR VOLUME 90.6 fl (80.0-96.0); MONO # 0.7 10^3/uL (0.0-0.8); MONO % 5.4 % (0.0-5.0); NEUTROPHILS # 10.4 10^3/uL (1.5-8.5); NEUTROPHILS % 82.3 % (36.0-66.0); PLATELET COUNT, AUTOMATED 170 10^3/uL (150-450); RED BLOOD COUNT 3.74 10^6/uL (4.30-6.10); WHITE BLOOD COUNT 12.6 10^3/uL (4.0-10.0)
[2020-02-03 11:53] LABS: ERYTHROCYTE SEDIMENTATION RATE 66 mm/hr (0-20)
[2020-02-03 12:03] LABS: ALBUMIN 2.5 GM/DL (3.2-5.2); BILIRUBIN,DIRECT 0.2 MG/DL (0.0-0.2); BILIRUBIN,TOTAL 0.4 MG/DL (0.2-1.0); C REACTIVE PROTEIN QUANTITATIV 13.7 MG/DL (0.00-0.30); TOTAL PROTEIN 6.6 GM/DL (6.4-8.2)
[2020-02-03] MEDS ORDERED: FURO20TA2 PO (12:46)
[2020-02-03] MEDS ORDERED: HUMA100I5 SC (12:46)
[2020-02-03] MEDS ORDERED: ACET-683 PO (12:47)
[2020-02-03] MEDS ORDERED: DEXTROSE 50% 50 ML SYRINGE IV PRN (13:30)
[2020-02-03] MEDS ORDERED: NITROGLYCERIN 0.4 MG SUBL TABLET SL PRN (13:30)
[2020-02-03] MEDS ORDERED: GLUCOSE 4GM CHEW TABLET PO PRN (13:30)
[2020-02-03] MEDS ORDERED: GLUCAGON INJ 1MG VIAL SC PRN (13:30)
[2020-02-03 13:35] VITALS: BP 128/66
--- NOTE | 2020-02-03 13:36 | HPEPDOC ---
General Date of Admission 02/03/20 Date of Service: February 03, 2020 Chief Complaint The patient is a 65-year-old male admitted with a reason for visit of Skin Problem. Source: Patient Exam Limitations: No limitations Timing/Duration: 24 hours Severity: Moderate History of Present Illness Patient 65 years old male with past medical history of type 2 diabetes, coronary artery diseases with 2 stents placement, hypertension, chronic kidney diseases presented hospital with right foot cellulitis. Patient was sent to the hospital from product management consultant office when he was found to have swelling of the right foot with erythema. Of note on 12/13/19 he had amputation right 3d toe due to gangrene. In ER patient was found to have leukocytosis of 12.5, no fever, Doppler US shows no evidence of deep venous thrombosis of the right lower extremity femoral popliteal venous system, CRP 13.7, creatinine 1.7. Home Medications Scheduled Aspirin (Aspirin EC) 81 Mg Tab, 81 MG PO QHS, (Reported) Carvedilol (Carvedilol) 3.125 Mg Tab, 3.125 MG PO BID, (Reported) Cephalexin (Cephalexin) 500 Mg Capsule, 500 MG PO BID, (Reported) FOR 10 DAYS, FILLED 01/28/20 Collagenase Clostridium Hist. (Santyl) 30 Gm Oint...g., 1 DOSE TOP ASDIRECTED, (Reported) APPLIES IN BETWEEN TOES WITH EACH BANDAGE CHANGE Furosemide (Furosemide) 20 Mg Tablet, 20 MG PO DAILY, (Reported) Insulin Degludec (Tresiba Flextouch U-200) 200 Unit/1 Ml Insuln.pen, 40 UNIT SC QHS, (Reported) Insulin Lispro (Humalog Kwikpen U-100) 100 Unit/1 Ml Insuln.pen, 1 DOSE SC AC, (Reported) PER SLIDING SCALE Ramipril (Ramipril) 10 Mg Capsule, 10 MG PO QHS, (Reported) Scheduled PRN Acetaminophen (Acetaminophen) 500 Mg Tablet, 1,000 MG PO Q6H PRN for PAIN, (Reported) Nitroglycerin (Nitrostat) 0.4 Mg Subl, 0.4 MG SL Q5MP PRN for CHEST PAIN, (Reported) Allergies Coded Allergies: No Known Allergies (Verified , 03/30/03) Past Medical History Medical History CORONARY ARTERY DISEASE, PRIOR UT, ISCHEMIC CARDIOMYOPATHY, STATUS POST SINGLE-CHAMBER ICD, SYSTOLIC HEART FAILURE HYPERTENSION HYPERLIPIDEMIA DIABETES ANEMIA OF CHRONIC DISEASE BILATERAL CAROTID BRUITS (NEGATIVE WORKUP) CKD SMOKING Surgical History LASER SURGERY FOR LEFT RETINAL HEMORRHAGE LEFT CATARACT REPAIR 2000 HEART CATHETERIZATION WITH STENT 10/23/2000 RIGHT CATARACT REPAIR 2008 AORTOBIFEMORAL BYPASS August, IMPLANTABLE SINGLE-CHAMBER ICD 09/30/14 ANGIOPLASTY OF THE RIGHT DISTAL COMMON FEMORAL ARTERY AND PROXIMAL SUPERFICIAL FEMORAL ARTERY 09/01/2019 ANGIOPLASTY OF THE RIGHT SUPERFICIAL FEMORAL ARTERY AND POPLITEAL ARTERY, RIGHT ANTERIOR TIBIAL ARTERY, DISTAL ANTERIOR TIBIAL ARTERY AND DORSALIS PEDIS ARTERIES 09/05/2019 RIGHT 3RD TOE AMPUTATION-DR. BANG 11/26/2019 Family History FATHER: STROKE MOTHER: DIABETES Social History Alcohol: Denies Drugs: denies A-FIB/CHADSVASC A-FIB History Current/History of A-Fib/PAF?: No Current PO Anticoag Therapy: No Review of Systems Constitutional: Denies: Chills, Fever Eyes: Denies: Pain, Vision change ENT: Denies: Head Aches, Ear Pain Skin: Reports: Breakdown (right foot); Denies: Rash Pulmonary: Denies: Dyspnea Cardiovascular: Denies: Chest Pain Gastrointestinal: Denies: Nausea, Vomiting Genitourinary: Denies: Dysuria, Frequency Hematologic: Denies: Bruising Endocrine: Denies: Polydipsia, Polyphagia Musculoskeletal: Reports: Foot Pain; Denies: Neck Pain, Back Pain Neurological: Denies: Weakness Psych: Reports: Mood Normal Physical Examination General Exam: Positive: Alert, Cooperative Eye Exam: Positive: PERRLA ENT Exam: Positive: Atraumatic Neck Exam: Positive: Supple; Negative: JVD Chest Exam: Positive: Clear to auscultation Heart Exam: Positive: Rate Normal Telemetry: Positive: No significant arrhythmia Abdomen Exam: Positive: Normal bowel sounds Extremity Exam: Positive: Clubbing; Negative: Cyanosis Skin Exam: Positive: Breakdown (erythema of right foot with stage II ulcer of the plantar surface of right foot, some purulent discharge from the right 3d amputated toe area) Neuro Exam: Positive: Strength at 5/5 X4 ext, Cranial Nerves 3-12 NL Psych Exam: Positive: Mental status NL Vital Signs Vital Signs Date Time Temp Pulse Resp B/P (MAP) Pulse Ox O2 Delivery O2 Flow Rate FiO2 02/03/20 11:17 02/03/20 10:13 98.1 83 16 100 Room Air Laboratory Data Labs 24H Laboratory Tests 2 02/03/20 11:12: Immature Granulocyte % (Auto) 0.5, Neutrophils (%) (Auto) 82.3H, Lymphocytes (%) (Auto) 9.4L, Monocytes (%) (Auto) 5.4H, Eosinophils (%) (Auto) 2.1, Basophils (%) (Auto) 0.3, Neutrophils # (Auto) 10.4H, Lymphocytes # (Auto) 1.2L, Monocytes # (Auto) 0.7, Eosinophils # (Auto) 0.3, Basophils # (Auto) 0.0, Nucleated Red Blood Cells % (auto) 0.0, Erythrocyte Sedimentation Rate 66H, Lactic Acid Level 1.3, Total Bilirubin 0.4, Direct Bilirubin 0.2, Aspartate Amino Transf (AST/SGOT) 19, Alanine Aminotransferase (ALT/SGPT) 23, Alkaline Phosphatase 99, C-Reactive Protein, Quantitative 13.70H, Total Protein 6.6, Albumin 2.5L, Albumin/Globulin Ratio 0.61L 02/03/20 11:26: POC Glucose (Misc Panel) 149H, POC Sodium (Misc Panel) 141, POC Potassium (Misc Panel) 3.8, POC Chloride (Misc Panel) 105, POC Total CO2 (Misc Panel) 23.0, POC Blood Urea Nitrogen (Misc Panel 27H, POC Ionized Calcium (Misc Panel) 4.7, POC Creatinine (Misc Panel) 1.7H, POC Hematocrit (Misc Panel) 42.0 CBC/BMP Laboratory Tests 02/03/20 11:12 Microbiology Microbiology 02/03/20 Blood Culture, Received Pending 02/03/20 Blood Culture, Received Pending Assessment/Plan Patient 65 years old male with past medical history of type 2 diabetes, coronary artery diseases with 2 stents placement, hypertension, chronic kidney diseases presented hospital with right foot cellulitis. Patient was sent to the hospital from product management consultant office when he was found to have swelling of the right foot with erythema. In ER patient was found to have leukocytosis of 12.5, no fever, Doppler US shows no evidence of deep venous thrombosis of the right lower extremity femoral popliteal venous system, CRP 13.7, creatinine 1.7. Problems (1) Cellulitis of right foot Status: Acute Problem Text: There is concern for osteomyelitis CRP is elevated, sedimentation rate 66 Will check x-ray of right foot We can't proceed with MRI given pacemaker Vancomycin, Zosyn Appreciate/agree with product management consultant consult IV fluid (2) KIANA (acute kidney injury) Onset Date: 03/30/2014 Status: Acute Problem Text: Most likely combined prerenal and renal secondary to cellulitis Gentle IV hydration Continue to monitor (3) Diabetes mellitus Status: Chronic Problem Text: Diabetes diet Insulin sliding scale Detemir twice a day (4) Hypertension Status: Chronic Problem Text: Blood pressures under control Continue home cardio protected medications Plan / VTE VTE Prophylaxis Ordered?: Yes KAVITHA BRITT DO February 03, 2020 13:36
[2020-02-03] MEDS: FUROSEMIDE 20 MG TAB PO SCH (13:57)
[2020-02-03] MEDS: CARVedilol 3.125 MG TAB PO SCH ×2 (13:57→21:13)
[2020-02-03] MEDS ORDERED: VANCOMYCIN HCL 750 MG, VIAL MATE ADAPTER 1 EACH in D5W 250 ML IV ONE ×2 (14:00→15:00)
[2020-02-03] MEDS: HumaLOG INSULIN (NovoLOG) PER UNIT SC SCH ×2 (16:56→21:00)
[2020-02-03] MEDS: LEVEMIR (INSULIN DETEMIR) 1 UNITS/0.01ML SC SCH (21:12)
[2020-02-03] MEDS: PIPERACILLIN/TAZOBACTAM SOD 3.375 GM in D5W MINI-BAG PLUS 50 ML IV SCH (21:12)
[2020-02-03] MEDS: HEPARIN SOD (PORCINE) 5000UNITS/ML 1ML VIAL/SYRINGE SC SCH (21:12)
[2020-02-03] MEDS: ramipriL 5 MG CAP PO SCH (21:13)
[2020-02-03] MEDS: ASPIRIN 81 MG ENTERIC TAB PO SCH (21:13)
[2020-02-03] MEDS: ACETAMINOPHEN 500 MG TAB PO PRN (21:13)
[2020-02-03 22:00] VITALS: BP 172/71
--- NOTE | 2020-02-03 23:07 | REP ---
RIGHT FOOT, FOUR VIEWS: Four views of right foot performed. There is destruction of the head of the 3rd metatarsal, consistent with osteomyelitis. There is associated soft tissue swelling. No other obvious cortical destruction or periosteal reaction is seen. No fracture or dislocation is seen. There is diffuse narrowing of the interphalangeal joints. IMPRESSION: Osseous destruction and evidence of osteomyelitis involving the head of the 3rd metatarsal. Electronically Signed by Christiano Juarez MD 02/04/2020 12:44 P
[2020-02-04] VITALS (7 sets, daily range): BP systolic 127–171; BP diastolic 57–81
[2020-02-04] MEDS: PIPERACILLIN/TAZOBACTAM SOD 3.375 GM in D5W MINI-BAG PLUS 50 ML IV SCH (04:29)
[2020-02-04] MEDS: ACETAMINOPHEN 500 MG TAB PO PRN ×2 (04:33→12:56)
[2020-02-04 06:11] LABS: HEMATOCRIT 30.9 % (42.0-52.0); HEMOGLOBIN 9.9 g/dl (13.5-17.5); MEAN CORPUSCULAR HEMOGLOBIN 28.9 pg (27.0-33.0); MEAN CORPUSCULAR VOLUME 90.1 fl (80.0-96.0); PLATELET COUNT, AUTOMATED 151 10^3/uL (150-450); RED BLOOD COUNT 3.43 10^6/uL (4.30-6.10)
[2020-02-04 06:33] LABS: ALBUMIN 2.2 GM/DL (3.2-5.2); BILIRUBIN,TOTAL 0.4 MG/DL (0.2-1.0); CREATININE FOR GFR 1.58 MG/DL (0.70-1.30); GLOMERULAR FILTRATION RATE 46.9 (>49); POTASSIUM SERUM 3.6 MEQ/L (3.5-5.1); TOTAL PROTEIN 5.9 GM/DL (6.4-8.2)
[2020-02-04] MEDS: HumaLOG INSULIN (NovoLOG) PER UNIT SC SCH ×4 (07:30→20:49)
[2020-02-04] MEDS ORDERED: VANCOMYCIN HCL 1,000 MG, VIAL MATE ADAPTER 1 EACH in D5W 250 ML IV SCH ×2 (08:00→20:00)
[2020-02-04] MEDS: HEPARIN SOD (PORCINE) 5000UNITS/ML 1ML VIAL/SYRINGE SC SCH ×2 (08:01→20:57)
[2020-02-04] MEDS: LEVEMIR (INSULIN DETEMIR) 1 UNITS/0.01ML SC SCH ×2 (08:01→20:57)
[2020-02-04] MEDS: CARVedilol 3.125 MG TAB PO SCH ×2 (08:14→20:58)
[2020-02-04] MEDS: FUROSEMIDE 20 MG TAB PO SCH (08:14)
[2020-02-04 08:29] LABS: VANCOMYCIN RANDOM 7.6 UG/ML
[2020-02-04] MEDS: traMADol 50 MG TAB PO PRN ×2 (10:41→20:58)
[2020-02-04] MEDS ORDERED: propofoL 200 MG/20 ML VIAL As Ordered ONE ×2 (11:01→15:45)
[2020-02-04] MEDS ORDERED: LIDOCAINE 2% 100MG/5ML SDV (FOR ANES.) As Ordered ONE (11:01)
[2020-02-04] MEDS ORDERED: MIDAZOLAM INJ 2MG/2ML VIAL (J2250 PER 1MG) As Ordered ONE (11:03)
[2020-02-04] MEDS ORDERED: ONDANSETRON 4MG/2ML VIAL As Ordered ONE (11:04)
[2020-02-04] MEDS ORDERED: fentaNYL 100 MCG/2 ML INJECTION (J3010) As Ordered ONE ×3 (11:04→16:12)
[2020-02-04] MEDS ORDERED: dexameTHASONE 4 MG/ML 1ML VIAL (J1100 PER 1MG) As Ordered ONE ×2 (11:04→12:46)
--- NOTE | 2020-02-04 12:09 | IPNPDOC ---
Text Note Date of Service The patient was seen on 02/04/20. NOTE Subjective: Patient continues to complain right foot pain, stated it's 7 out of 10. Patient denied fever, chills, nausea, vomiting, chest pain, palpitations diarrhea or dysuria VITAL SIGNS: Please see below. GENERAL: awake, alert, NAD HEENT: NCAT, anicteric sclera, YOLANDA NECK: supple, no JVD CARDIOVASCULAR EXAMINATION: NS1S2, regular rate/rhythm RESPIRATORY EXAMINATION: CTA b/l, no wheezes/rales/rhonchi ABDOMINAL EXAMINATION: positive bowel sounds x 4, NT EXTREMITIES: Right foot covered with dressing, +1 pitting edema over the right ankle and erythema NEUROLOGICAL EXAMINATION: AAO x 3, no motor/sensory deficits PSYCHIATRIC EXAMINATION: calm, normal affect Assessment/Plan Patient 65 years old male with past medical history of type 2 diabetes, coronary artery diseases with 2 stents placement, hypertension, chronic kidney diseases presented hospital with right foot cellulitis. Patient was sent to the hospital from natural fabricator office when he was found to have swelling of the right foot with erythema. In ER patient was found to have leukocytosis of 12.5, no fever, Doppler US shows no evidence of deep venous thrombosis of the right lower extremity femoral popliteal venous system, CRP 13.7, creatinine 1.7. Problems (1) Cellulitis of right foot There is concern for osteomyelitis CRP is elevated, sedimentation rate 66 x-ray of right foot shows osseous destruction and evidence of osteomyelitis involving the head of the 3rd metatarsal. We can't proceed with MRI given pacemaker Vancomycin, Zosyn MRSA test positive Dr. Echeverria will proceed with debridement today Pain management (2) KIANA (acute kidney injury) Most likely combined prerenal and renal secondary to cellulitis Gentle IV hydration Continue to monitor Slightly improved today (3) Diabetes mellitus Diabetes diet Insulin sliding scale Detemir twice a day (4) Hypertension Blood pressures was elevated in the morning most likely secondary to pain Continue home cardio protected medications Plan / VTE VTE Prophylaxis Ordered?: Yes VS,Fishbone, I+O VS, Fishbone, I+O Laboratory Tests 02/04/20 05:44 Vital Signs Date Time Temp Pulse Resp B/P (MAP) Pulse Ox O2 Delivery O2 Flow Rate FiO2 02/04/20 11:11 16 02/04/20 08:48 94 02/04/20 08:14 171/81 02/04/20 06:00 98.8 97 Room Air I&O- Last 24 Hours up to 6 AM 02/04/20 06:00 Intake Total 3350 ml Output Total 500 ml Balance 2850 ml KAVITHA BRITT DO February 04, 2020 12:09
[2020-02-04] MEDS: PIPERACILLIN/TAZOBACTAM SOD 4.5 GM in D5W MINI-BAG PLUS 50 ML IV SCH ×2 (12:27→20:56)
[2020-02-04] MEDS ORDERED: BUPIVACAINE HCL 0.5% 10ML VIAL As Ordered ONE (12:45)
[2020-02-04] MEDS ORDERED: LIDOCAINE 1% MDV 20ML VIAL As Ordered ONE (12:45)
[2020-02-04] MEDS ORDERED: ESMOLOL INJ 100MG/10ML VIAL As Ordered ONE (15:12)
[2020-02-04] MEDS ORDERED: METOPROLOL 5 MG/5 ML VIAL As Ordered ONE (15:15)
[2020-02-04] MEDS ORDERED: MORPHINE 2 MG/ML 1ML VIAL (J2270) IV PRN ×3 (16:15→17:45)
[2020-02-04] MEDS ORDERED: ONDANSETRON 4MG/2ML VIAL IV PRN ×3 (16:15→16:30)
[2020-02-04] MEDS ORDERED: PERCOCET 5MG/325MG TAB PO PRN ×2 (16:15→16:30)
[2020-02-04] MEDS: fentaNYL 100 MCG/2 ML INJECTION (J3010) IV PRN ×4 (16:15→16:35)
[2020-02-04] MEDS ORDERED: PERCOCET 5MG/325MG TAB As Ordered ONE (16:26)
[2020-02-04] MEDS ORDERED: LR 1,000 ML IV SCH (16:30)
[2020-02-04] MEDS: ramipriL 5 MG CAP PO SCH (20:57)
[2020-02-04] MEDS: ASPIRIN 81 MG ENTERIC TAB PO SCH (20:57)
[2020-02-05] VITALS (7 sets, daily range): BP systolic 104–146; BP diastolic 55–77
[2020-02-05] MEDS: PIPERACILLIN/TAZOBACTAM SOD 4.5 GM in D5W MINI-BAG PLUS 50 ML IV SCH ×3 (04:19→20:38)
[2020-02-05 07:31] LABS: VANCOMYCIN LEVEL TROUGH 19.7 UG/ML (10.0-20.0)
[2020-02-05] MEDS: FUROSEMIDE 20 MG TAB PO SCH (08:16)
[2020-02-05] MEDS: CARVedilol 3.125 MG TAB PO SCH (08:16)
[2020-02-05] MEDS: PERCOCET 5MG/325MG TAB PO PRN ×2 (08:17→20:40)
[2020-02-05] MEDS: LEVEMIR (INSULIN DETEMIR) 1 UNITS/0.01ML SC SCH ×2 (08:17→20:38)
[2020-02-05] MEDS: HumaLOG INSULIN (NovoLOG) PER UNIT SC SCH ×4 (08:18→20:14)
[2020-02-05 08:55] LABS: CALCIUM LEVEL 7.9 MG/DL (8.8-10.2); CREATININE FOR GFR 1.78 MG/DL (0.70-1.30); GLOMERULAR FILTRATION RATE 40.9 (>49); POTASSIUM SERUM 4.5 MEQ/L (3.5-5.1)
[2020-02-05] MEDS: HEPARIN SOD (PORCINE) 5000UNITS/ML 1ML VIAL/SYRINGE SC SCH ×2 (10:51→20:38)
[2020-02-05] MEDS: VANCOMYCIN HCL 750 MG, VIAL MATE ADAPTER 1 EACH in D5W 250 ML IV SCH ×2 (10:51→23:26)
[2020-02-05] MEDS: traMADol 50 MG TAB PO PRN (11:02)
--- NOTE | 2020-02-05 13:31 | IPNPDOC ---
Text Note Date of Service The patient was seen on 02/05/20. NOTE Subjective: Patient continues to complain right foot pain, stated it's 6 out of 10. Patient denied fever, chills, nausea, vomiting, chest pain, palpitations diarrhea or dysuria VITAL SIGNS: Please see below. GENERAL: awake, alert, NAD HEENT: NCAT, anicteric sclera, YOLANDA NECK: supple, no JVD CARDIOVASCULAR EXAMINATION: NS1S2, regular rate/rhythm RESPIRATORY EXAMINATION: CTA b/l, no wheezes/rales/rhonchi ABDOMINAL EXAMINATION: positive bowel sounds x 4, NT EXTREMITIES: Right foot covered with dressing, +1 pitting edema over the right ankle and erythema NEUROLOGICAL EXAMINATION: AAO x 3, no motor/sensory deficits PSYCHIATRIC EXAMINATION: calm, normal affect Assessment/Plan Patient 65 years old male with past medical history of type 2 diabetes, coronary artery diseases with 2 stents placement, hypertension, chronic kidney diseases presented hospital with right foot cellulitis. Patient was sent to the hospital from lead teller office when he was found to have swelling of the right foot with erythema. In ER patient was found to have leukocytosis of 12.5, no fever, Doppler US shows no evidence of deep venous thrombosis of the right lower extremity femoral popliteal venous system, CRP 13.7, creatinine 1.7. Problems (1) Cellulitis of right foot There is concern for osteomyelitis CRP is elevated, sedimentation rate 66 x-ray of right foot shows osseous destruction and evidence of osteomyelitis involving the head of the 3rd metatarsal. We can't proceed with MRI given pacemaker Vancomycin, Zosyn MRSA test positive Dr. Nj performed debridement on 02/04/20. He will repeat debridement in 2-3 days Pain management (2) KIANA (acute kidney injury) Most likely combined prerenal and renal secondary to cellulitis Continue to monitor (3) Diabetes mellitus Diabetes diet Insulin sliding scale Detemir twice a day (4) Hypertension Blood pressures was elevated in the morning most likely secondary to pain Continue home cardio protected medications Plan / VTE VTE Prophylaxis Ordered?: Yes VS,Fishbone, I+O VS, Fishbone, I+O Laboratory Tests 02/05/20 06:52 Vital Signs Date Time Temp Pulse Resp B/P (MAP) Pulse Ox O2 Delivery O2 Flow Rate FiO2 02/05/20 11:32 18 02/05/20 10:15 97.9 71 146/70 (95) 98 Room Air I&O- Last 24 Hours up to 6 AM 02/05/20 06:00 Intake Total 2019 ml Output Total 1500 ml Balance 520 ml KAVITHA BRITT DO February 05, 2020 13:31
[2020-02-05] MEDS ORDERED: METOPROLOL 5 MG/5 ML VIAL IV STA (13:37)
[2020-02-05 14:35] LABS: BASO % 0.1 % (0.0-1.0); EOS % 0.1 % (0.0-3.0); HEMATOCRIT 34.3 % (42.0-52.0); HEMOGLOBIN 10.9 g/dl (13.5-17.5); LYMPH # 1.3 10^3/uL (1.5-5.0); LYMPH % 8.7 % (24.0-44.0); MEAN CORPUSCULAR HEMOGLOBIN 29.1 pg (27.0-33.0); MEAN CORPUSCULAR HGB CONC 31.8 g/dl (32.0-36.5); MEAN CORPUSCULAR VOLUME 91.5 fl (80.0-96.0); MONO # 0.7 10^3/uL (0.0-0.8); MONO % 4.8 % (0.0-5.0); NEUTROPHILS # 12.4 10^3/uL (1.5-8.5); NEUTROPHILS % 85.7 % (36.0-66.0); PLATELET COUNT, AUTOMATED 188 10^3/uL (150-450); RED BLOOD COUNT 3.75 10^6/uL (4.30-6.10); WHITE BLOOD COUNT 14.5 10^3/uL (4.0-10.0)
[2020-02-05] MEDS: METOPROLOL 5 MG/5 ML VIAL IV PRN (15:30)
[2020-02-05] MEDS: METOPROLOL TART 25 MG TABLET PO SCH ×3 (15:31→21:18)
[2020-02-05] MEDS: NS 1,000 ML IV SCH (15:32)
--- NOTE | 2020-02-05 18:13 | ECGEPIP ---
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
--- NOTE | 2020-02-05 18:16 | ECGEPIP ---
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
--- NOTE | 2020-02-05 18:20 | ECGEPIP ---
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
--- NOTE | 2020-02-05 19:29 | IPN ---
DATE OF SERVICE: 02/05/2020 Patient is seen and examined, denies overnight complaints, states his foot is sore. Vital signs are reviewed. He has remained afebrile overnight. Cultures are pending. LOWER EXTREMITY EXAMINATION: The dorsal incision is without necrosis or purulence. Plantar incision has some trace purulence and some necrotic tissue along the wound margins. ASSESSMENT: A 65-year-old diabetic male, status post incision and drainage and third metatarsal head excision. PLAN: Await culture results. Continue empiric antibiotics. Continue daily dressing changes. Will monitor tomorrow. Most likely he will require repeat incision and drainage during this hospital stay, tentatively Sunday or Sunday, depending on wound progression.
[2020-02-05] MEDS: ASPIRIN 81 MG ENTERIC TAB PO SCH (20:38)
[2020-02-05] MEDS: ramipriL 5 MG CAP PO SCH (20:43)
[2020-02-06] VITALS: BP 130/70
[2020-02-06] MEDS: METOPROLOL 5 MG/5 ML VIAL IV PRN (01:11)
[2020-02-06] MEDS: PIPERACILLIN/TAZOBACTAM SOD 4.5 GM in D5W MINI-BAG PLUS 50 ML IV SCH (03:24)
[2020-02-06] MEDS: NS 1,000 ML IV SCH ×2 (03:24→14:40)
[2020-02-06] MEDS: traMADol 50 MG TAB PO PRN (03:40)
[2020-02-06 04:00] VITALS: BP 105/54
[2020-02-06 05:54] LABS: BASO % 0.2 % (0.0-1.0); EOS # 0.1 10^3/uL (0.0-0.5); HEMATOCRIT 28.9 % (42.0-52.0); HEMOGLOBIN 9.3 g/dl (13.5-17.5); LYMPH # 1.9 10^3/uL (1.5-5.0); MEAN CORPUSCULAR HEMOGLOBIN 29.3 pg (27.0-33.0); MEAN CORPUSCULAR HGB CONC 32.2 g/dl (32.0-36.5); MEAN CORPUSCULAR VOLUME 91.2 fl (80.0-96.0); MONO # 0.7 10^3/uL (0.0-0.8); MONO % 6.7 % (0.0-5.0); NEUTROPHILS # 7.6 10^3/uL (1.5-8.5); NEUTROPHILS % 73.7 % (36.0-66.0); PLATELET COUNT, AUTOMATED 178 10^3/uL (150-450); RED BLOOD COUNT 3.17 10^6/uL (4.30-6.10); WHITE BLOOD COUNT 10.3 10^3/uL (4.0-10.0)
[2020-02-06 06:15] LABS: CALCIUM LEVEL 7.6 MG/DL (8.8-10.2); CREATININE FOR GFR 2.33 MG/DL (0.70-1.30); MAGNESIUM LEVEL 2.2 MG/DL (1.8-2.4); POTASSIUM SERUM 4.2 MEQ/L (3.5-5.1)
[2020-02-06] MEDS: METOPROLOL TART 25 MG TABLET PO SCH ×3 (06:29→21:22)
[2020-02-06] MEDS: HumaLOG INSULIN (NovoLOG) PER UNIT SC SCH ×4 (07:30→20:08)
[2020-02-06 07:45] VITALS: BP 123/59
[2020-02-06] MEDS: LEVEMIR (INSULIN DETEMIR) 1 UNITS/0.01ML SC SCH ×2 (09:00→21:21)
[2020-02-06] MEDS: HEPARIN SOD (PORCINE) 5000UNITS/ML 1ML VIAL/SYRINGE SC SCH ×2 (09:16→21:21)
[2020-02-06] MEDS: MIRALAX *UNIT DOSE* 17GM PACKET PO PRN (10:48)
--- NOTE | 2020-02-06 10:57 | IPNPDOC ---
Text Note Date of Service The patient was seen on 02/06/20. NOTE Subjective: Patient continues to complain of right foot pain, stated it's 5 out of 10. Yesterday, the patient developed atrial fibrillation with rapid ventricular rate, converted to normal sinus rhythm after he received an increased dose of beta luis. Also patient today complaining of constipation. In the morning patient developed one episode of hypoglycemia. Patient denied fever, chills, nausea, vomiting, chest pain, palpitations diarrhea or dysuria VITAL SIGNS: Please see below. GENERAL: awake, alert, NAD HEENT: NCAT, anicteric sclera, YOLANDA NECK: supple, no JVD CARDIOVASCULAR EXAMINATION: NS1S2, regular rate/rhythm RESPIRATORY EXAMINATION: CTA b/l, no wheezes/rales/rhonchi ABDOMINAL EXAMINATION: positive bowel sounds x 4, NT EXTREMITIES: Right foot covered with dressing, +1 pitting edema over the right ankle and erythema NEUROLOGICAL EXAMINATION: AAO x 3, no motor/sensory deficits PSYCHIATRIC EXAMINATION: calm, normal affect Assessment/Plan Patient 65 years old male with past medical history of type 2 diabetes, coronary artery diseases with 2 stents placement, hypertension, chronic kidney diseases presented hospital with right foot cellulitis. Patient was sent to the hospital from contact center assistant office when he was found to have swelling of the right foot with erythema. In ER patient was found to have leukocytosis of 12.5, no fever, Doppler US shows no evidence of deep venous thrombosis of the right lower extremity femoral popliteal venous system, CRP 13.7, creatinine 1.7. Problems: (1) Cellulitis of right foot There is concern for osteomyelitis CRP is elevated, sedimentation rate 66 x-ray of right foot shows osseous destruction and evidence of osteomyelitis involving the head of the 3rd metatarsal. We can't proceed with MRI given pacemaker Wound culture on 02/06/20 positive for Proteus mirabilis, and aerobes pending DC vancomycin, continue Zosyn Dr. Nj performed debridement on 02/04/20. He will repeat debridement on 02/07/20 Pain management (2) KIANA (acute kidney injury) Worsening today I discontinued ramipril Continue IV fluid Most likely combined prerenal and renal secondary to cellulitis Continue to monitor (3) Diabetes mellitus Diabetes diet Insulin sliding scale I decreased the dose of Detemir 10 units twice a day due to hypoglycemia in the morning Atrial fibrillation with rapid ventricular rate Patient yesterday developed atrial fibrillation with rapid ventricular rate I increased the dose of beta blockers: metoprolol 25 mg 3 times a day Currently patient has sinus rhythm I will hold anticoagulation for now due to debridement tomorrow. Hypertension Resolved Continue home cardio protected medications Constipation Continue MiraLAX when necessary Plan / VTE VTE Prophylaxis Ordered?: Yes VS,Fishbone, I+O VS, Fishbone, I+O Laboratory Tests 02/05/20 14:13 02/06/20 05:16 Vital Signs Date Time Temp Pulse Resp B/P (MAP) Pulse Ox O2 Delivery O2 Flow Rate FiO2 02/06/20 07:45 97.1 84 20 123/59 (80) 94 Room Air I&O- Last 24 Hours up to 6 AM 02/06/20 06:00 Intake Total 1680 ml Output Total 500 ml Balance 1180 ml KAVITHA BRITT DO February 06, 2020 10:57
[2020-02-06 12:00] VITALS: BP 120/62
[2020-02-06] MEDS: PIPERACILLIN/TAZOBACTAM SOD 2.25 GM in D5W MINI-BAG PLUS 50 ML IV SCH ×2 (12:43→18:46)
--- NOTE | 2020-02-06 14:31 | IPN ---
DATE: 02/06/2020 The patient seen and examined. States he is still having pretty good pain in his foot, not controlled well by his current medications. Vitals are reviewed. He has remained afebrile. Labs are reviewed. White blood cell count is 10.3. Hemoglobin is 9.3. His creatinine this morning is 2.33. Culture results from the operating room (OR) thus far are growing Proteus mirabilis. Pathology is pending. Lower Extremity Examination: Dorsal foot without any purulence. The plantar foot has some continued necrosis. ASSESSMENT: 65-year-old male with osteomyelitis and gangrene status post debridement and metatarsal head excision. PLAN: Will take to the operating room tomorrow for repeat incision, drainage and debridement. Likely will take additional bone at that time. He should be nothing by mouth (n.p.o.) at midnight.
--- NOTE | 2020-02-06 14:38 | REP ---
Bilateral lower extremity arterial Doppler ultrasound: History: Peripheral vascular disease. Gangrene. Comparison study October 08, 2019. Findings: Ankle brachial indices could not be accomplished due to noncompressible vessels. In the right lower extremity heavily calcified vessels are noted. There is shadowing calcific plaquing in the common femoral artery again noted obscuring some of the lumen as before. There is evidence of a three to one velocity ratio stenosis in the proximal profunda on the right similar to previous. There is a nearly two to one velocity ratio stenosis in the popliteal artery on the right. Trickle of flow seen in the proximal anterior tibial artery and the distal anterior tibial artery on the right is occluded. Monophasic waveforms are noted at and distal to the proximal superficial femoral artery on the right. On the left a patent iliofemoral bypass graft is seen. The proximal portion is difficult to visualize due to bowel gas. Flow velocity in the proximal portion of the graft is 96 cm/sec, mid graft flow velocity 71 cm/sec, and distal anastomotic flow velocity 86 cm/sec. Biphasic waveforms are noted in the arterial tree in the left lower extremity. Right lower extremity arterial Doppler velocity chart: Right CF A PSV 80 cm/S Profunda 244 Proximal SFA 89 Mid SFA 72 Distal SFA 69 Popliteal 130 Proximal AT A 21 Tibioperoneal trunk 77 Proximal ADULT CARE MANAGER 37 Distal ADULT CARE MANAGER 56 Distal AT A occluded Left lower extremity arterial Doppler velocity chart: Left CF A PSV 86 cm/S Profunda 61 Proximal SFA 73 Mid SFA 84 Distal SFA 98 Popliteal 62 Proximal AT A 41 Tibioperoneal trunk 49 Proximal ADULT CARE MANAGER 23 Distal ADULT CARE MANAGER 40 Distal AT A 54 Electronically Signed by Tao Arrington MD 02/06/2020 02:30 P
[2020-02-06 16:00] VITALS: BP 138/63
[2020-02-06 20:00] VITALS: BP 140/66
[2020-02-06] MEDS: ASPIRIN 81 MG ENTERIC TAB PO SCH (21:21)
[2020-02-07] VITALS (13 sets, daily range): BP systolic 133–196; BP diastolic 60–84
[2020-02-07] MEDS: PIPERACILLIN/TAZOBACTAM SOD 2.25 GM in D5W MINI-BAG PLUS 50 ML IV SCH ×4 (00:01→18:40)
[2020-02-07] MEDS: NS 1,000 ML IV SCH ×2 (00:01→18:40)
[2020-02-07] MEDS: METOPROLOL TART 25 MG TABLET PO SCH ×3 (03:04→21:14)
[2020-02-07 05:30] LABS: BASO % 0.3 % (0.0-1.0); EOS # 0.2 10^3/uL (0.0-0.5); EOS % 2.5 % (0.0-3.0); HEMATOCRIT 29.4 % (42.0-52.0); HEMOGLOBIN 9.3 g/dl (13.5-17.5); LYMPH # 1.5 10^3/uL (1.5-5.0); MEAN CORPUSCULAR HEMOGLOBIN 29.1 pg (27.0-33.0); MEAN CORPUSCULAR HGB CONC 31.6 g/dl (32.0-36.5); MEAN CORPUSCULAR VOLUME 91.9 fl (80.0-96.0); MONO # 0.7 10^3/uL (0.0-0.8); MONO % 7.8 % (0.0-5.0); NEUTROPHILS # 6.6 10^3/uL (1.5-8.5); NEUTROPHILS % 72.7 % (36.0-66.0); PLATELET COUNT, AUTOMATED 184 10^3/uL (150-450); WHITE BLOOD COUNT 9.1 10^3/uL (4.0-10.0)
[2020-02-07 05:50] LABS: CALCIUM LEVEL 7.4 MG/DL (8.8-10.2); CREATININE FOR GFR 1.95 MG/DL (0.70-1.30); GLOMERULAR FILTRATION RATE 36.8 (>49); MAGNESIUM LEVEL 2.3 MG/DL (1.8-2.4); POTASSIUM SERUM 4.5 MEQ/L (3.5-5.1)
[2020-02-07] MEDS: HumaLOG INSULIN (NovoLOG) PER UNIT SC SCH ×4 (07:30→19:56)
[2020-02-07] MEDS ORDERED: BUPIVACAINE HCL 0.5% 30 ML VIAL As Ordered ONE (07:46)
[2020-02-07] MEDS ORDERED: LIDOCAINE 1% SDV 30ML VIAL As Ordered ONE (07:46)
[2020-02-07] MEDS ORDERED: LIDOCAINE 2% 100MG/5ML SDV (FOR ANES.) As Ordered ONE (08:00)
[2020-02-07] MEDS ORDERED: propofoL 200 MG/20 ML VIAL As Ordered ONE (08:00)
[2020-02-07] MEDS ORDERED: MIDAZOLAM INJ 2MG/2ML VIAL (J2250 PER 1MG) As Ordered ONE (08:01)
[2020-02-07] MEDS ORDERED: fentaNYL 100 MCG/2 ML INJECTION (J3010) As Ordered ONE (08:01)
[2020-02-07] MEDS: LEVEMIR (INSULIN DETEMIR) 1 UNITS/0.01ML SC SCH ×2 (08:28→20:26)
--- NOTE | 2020-02-07 10:22 | IPNPDOC ---
Text Note Date of Service The patient was seen on 02/07/20. NOTE Subjective: No any acute events overnight. Also patient today complaining of constipation. No bowel movement since Sunday. Patient denied fever, chills, nausea, vomiting, chest pain, palpitations diarrhea or dysuria VITAL SIGNS: Please see below. GENERAL: awake, alert, NAD HEENT: NCAT, anicteric sclera, YOLANDA NECK: supple, no JVD CARDIOVASCULAR EXAMINATION: NS1S2, regular rate/rhythm RESPIRATORY EXAMINATION: CTA b/l, no wheezes/rales/rhonchi ABDOMINAL EXAMINATION: positive bowel sounds x 4, NT EXTREMITIES: Right foot covered with dressing, +1 pitting edema over the right ankle and erythema NEUROLOGICAL EXAMINATION: AAO x 3, no motor/sensory deficits PSYCHIATRIC EXAMINATION: calm, normal affect Assessment/Plan Patient 65 years old male with past medical history of type 2 diabetes, coronary artery diseases with 2 stents placement, hypertension, chronic kidney diseases presented hospital with right foot cellulitis. 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 In ER patient was found to have leukocytosis of 12.5, no fever, Doppler US shows no evidence of deep venous thrombosis of the right lower extremity femoral popliteal venous system, CRP 13.7, creatinine 1.7. Problems: (1) Cellulitis of right foot There is concern for osteomyelitis CRP is elevated, sedimentation rate 66 x-ray of right foot shows osseous destruction and evidence of osteomyelitis involving the head of the 3rd metatarsal. We can't proceed with MRI given pacemaker Wound culture on 02/06/20 positive for Proteus mirabilis, enterococcus faecalis and aerobes pending DC vancomycin, continue Zosyn Dr. Nj performed debridement on 02/04/20. He will repeat debridement on 02/07/20 Pain management (2) KIANA (acute kidney injury) Improved I discontinued ramipril Continue IV fluid Most likely combined prerenal and renal secondary to cellulitis Continue to monitor (3) Diabetes mellitus Diabetes diet Insulin sliding scale I decreased the dose of Detemir 10 units twice a day due to previous episodes of hypoglycemia Atrial fibrillation with rapid ventricular rate Patient developed atrial fibrillation with rapid ventricular rate I increased the dose of beta blockers: metoprolol 25 mg 3 times a day Currently patient has sinus rhythm I will hold anticoagulation for now due to debridement on 02/07/20 Hypertension Resolved Continue home cardio protected medications Constipation Continue MiraLAX when necessary Dulcolax Plan / VTE VTE Prophylaxis Ordered?: Yes VS,Beto, I+O VS, Dubone, I+O Laboratory Tests 02/07/20 05:14 Vital Signs Date Time Temp Pulse Resp B/P (MAP) Pulse Ox O2 Delivery O2 Flow Rate FiO2 02/07/20 10:10 64 16 134/64 (87) 94 Room Air 02/07/20 09:52 97.9 I&O- Last 24 Hours up to 6 AM 02/07/20 06:00 Intake Total 4570 ml Output Total 2400 ml Balance 2170 ml KAVITHA BRITT DO February 07, 2020 10:21
[2020-02-07] MEDS ORDERED: BISACODYL 10 MG SUPP PR PRN (10:30)
[2020-02-07] MEDS ORDERED: LR 1,000 ML IV SCH (10:45)
[2020-02-07] MEDS ORDERED: ONDANSETRON 4MG/2ML VIAL IV PRN (10:45)
[2020-02-07] MEDS ORDERED: fentaNYL 100 MCG/2 ML INJECTION (J3010) IV PRN (10:45)
[2020-02-07] MEDS: HEPARIN SOD (PORCINE) 5000UNITS/ML 1ML VIAL/SYRINGE SC SCH ×2 (10:56→20:26)
[2020-02-07] MEDS: FUROSEMIDE 20 MG TAB PO SCH (10:57)
[2020-02-07] MEDS: ASPIRIN 81 MG ENTERIC TAB PO SCH (20:26)
[2020-02-07] MEDS: traMADol 50 MG TAB PO PRN (20:26)
[2020-02-07] MEDS: BISACODYL 5 MG TAB PO PRN (20:27)
[2020-02-08] VITALS: BP 154/72
[2020-02-08] MEDS: PIPERACILLIN/TAZOBACTAM SOD 2.25 GM in D5W MINI-BAG PLUS 50 ML IV SCH ×4 (00:07→18:21)
[2020-02-08] MEDS: traMADol 50 MG TAB PO PRN (03:01)
[2020-02-08 04:00] VITALS: BP 150/82
[2020-02-08 05:13] LABS: BASO % 0.3 % (0.0-1.0); EOS # 0.3 10^3/uL (0.0-0.5); EOS % 2.7 % (0.0-3.0); HEMATOCRIT 29.9 % (42.0-52.0); HEMOGLOBIN 9.4 g/dl (13.5-17.5); LYMPH # 1.3 10^3/uL (1.5-5.0); LYMPH % 14.5 % (24.0-44.0); MEAN CORPUSCULAR HEMOGLOBIN 29.1 pg (27.0-33.0); MEAN CORPUSCULAR HGB CONC 31.4 g/dl (32.0-36.5); MEAN CORPUSCULAR VOLUME 92.6 fl (80.0-96.0); MONO # 0.7 10^3/uL (0.0-0.8); MONO % 7.8 % (0.0-5.0); NEUTROPHILS # 6.9 10^3/uL (1.5-8.5); NEUTROPHILS % 74.3 % (36.0-66.0); PLATELET COUNT, AUTOMATED 221 10^3/uL (150-450); RED BLOOD COUNT 3.23 10^6/uL (4.30-6.10); WHITE BLOOD COUNT 9.3 10^3/uL (4.0-10.0)
[2020-02-08 05:33] LABS: CALCIUM LEVEL 7.6 MG/DL (8.8-10.2); CREATININE FOR GFR 1.76 MG/DL (0.70-1.30); GLOMERULAR FILTRATION RATE 41.4 (>49); MAGNESIUM LEVEL 2.2 MG/DL (1.8-2.4); POTASSIUM SERUM 4.7 MEQ/L (3.5-5.1)
[2020-02-08] MEDS: METOPROLOL TART 25 MG TABLET PO SCH ×3 (06:21→20:47)
[2020-02-08] MEDS: HumaLOG INSULIN (NovoLOG) PER UNIT SC SCH ×4 (07:49→20:28)
[2020-02-08 08:00] VITALS: BP 149/73
[2020-02-08] MEDS: HEPARIN SOD (PORCINE) 5000UNITS/ML 1ML VIAL/SYRINGE SC SCH ×2 (09:15→20:43)
[2020-02-08] MEDS: FUROSEMIDE 20 MG TAB PO SCH (09:15)
[2020-02-08] MEDS: MIRALAX *UNIT DOSE* 17GM PACKET PO PRN (09:16)
[2020-02-08] MEDS: LEVEMIR (INSULIN DETEMIR) 1 UNITS/0.01ML SC SCH ×2 (09:16→20:43)
--- NOTE | 2020-02-08 10:52 | IPNPDOC ---
Text Note Date of Service The patient was seen on 02/08/20. NOTE Subjective: No any acute events overnight. Patient continues to have constipa tion Patient denied fever, chills, nausea, vomiting, chest pain, palpitations diarrhea or dysuria VITAL SIGNS: Please see below. GENERAL: awake, alert, NAD HEENT: NCAT, anicteric sclera, YOLANDA NECK: supple, no JVD CARDIOVASCULAR EXAMINATION: NS1S2, regular rate/rhythm RESPIRATORY EXAMINATION: CTA b/l, no wheezes/rales/rhonchi ABDOMINAL EXAMINATION: positive bowel sounds x 4, NT EXTREMITIES: Right foot covered with dressing, +1 pitting edema over the right ankle and erythema NEUROLOGICAL EXAMINATION: AAO x 3, no motor/sensory deficits PSYCHIATRIC EXAMINATION: calm, normal affect Assessment/Plan Patient 65 years old male with past medical history of type 2 diabetes, coronary artery diseases with 2 stents placement, hypertension, chronic kidney diseases presented hospital with right foot cellulitis. 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 In ER patient was found to have leukocytosis of 12.5, no fever, Doppler US shows no evidence of deep venous thrombosis of the right lower extremity femoral popliteal venous system, CRP 13.7, creatinine 1.7. Problems: (1) Cellulitis of right foot There is concern for osteomyelitis CRP is elevated, sedimentation rate 66 x-ray of right foot shows osseous destruction and evidence of osteomyelitis involving the head of the 3rd metatarsal. We can't proceed with MRI given pacemaker Wound culture on 02/06/20 positive for Proteus mirabilis, enterococcus faecalis and aerobes pending DC vancomycin, continue Zosyn Dr. Nj performed debridement on 02/04/20, repeated debridement on 02/07/20 Await bone culture Pain management (2) KIANA (acute kidney injury) Improved Most likely combined prerenal and renal secondary to cellulitis Continue to monitor (3) Diabetes mellitus Diabetes diet Insulin sliding scale I decreased the dose of Detemir 10 units twice a day due to previous episodes of hypoglycemia Atrial fibrillation with rapid ventricular rate Heart rate is under control Patient developed atrial fibrillation with rapid ventricular rate I increased the dose of beta blockers: metoprolol 25 mg 3 times a day Currently patient has sinus rhythm I will hold anticoagulation for now due to debridement on 02/07/20 Hypertension Resolved Continue home cardio protected medications Constipation Continue MiraLAX when necessary Dulcolax Magnesium citrate once Peripheral vascular diseases Doppler ultrasound showed: In the right lower extremity heavily calcified vessels are noted. There is shadowing calcific plaquing in the common femoral artery again noted obscuring some of the lumen as before. There is evidence of a three to one velocity ratio stenosis in the proximal profunda on the right similar to previous. There is a nearly two to one velocity ratio stenosis in the popliteal artery on the right Follow-up with vascular surgeon in the outpatient settings Plan / VTE VTE Prophylaxis Ordered?: Yes VS,Dubone, I+O VS, Fishbone, I+O Laboratory Tests 02/08/20 04:56 Vital Signs Date Time Temp Pulse Resp B/P (MAP) Pulse Ox O2 Delivery O2 Flow Rate FiO2 02/08/20 08:00 97.5 71 20 149/73 (98) 96 Room Air I&O- Last 24 Hours up to 6 AM 02/08/20 06:00 Intake Total 1642 ml Output Total 2435 ml Balance -793 ml KAVITHA BRITT DO February 08, 2020 10:52
[2020-02-08 12:00] VITALS: BP 135/64
[2020-02-08] MEDS ORDERED: MAGNESIUM CITRATE 300 ML BTL PO ONE (12:00)
--- NOTE | 2020-02-08 14:19 | RO ---
DATE OF PROCEDURE: 02/04/2020 PREPROCEDURE DIAGNOSIS: Right foot infection and osteomyelitis. POSTPROCEDURE DIAGNOSIS: Right foot infection and osteomyelitis. PROCEDURE: Right foot incision and drainage and 3rd metatarsal bone excision. SURGEON: Dr. Jeronimo Ludwig DPM. CONE CHOCOLATE DIPPER: None. ANESTHESIA: Monitored anesthesia care. Preoperative injection of 20 mL of 1:1 mixture of 1% lidocaine plain, 0.5% Marcaine plain. ESTIMATED BLOOD LOSS: 10 mL. SPECIMEN: Right 3rd metatarsal head and aerobic and anaerobic cultures right foot. COMPLICATIONS: None. CONDITION: Stable. INDICATION: Matthew Medina is a 65-year-old male who was admitted to the hospital with right foot infection. He failed outpatient oral antibiotics. An x-ray was taken which showed destructive changes to the 3rd metatarsal head. The decision was made to bring him to the operating room for incision and drainage and removal of infected bone. The patient's site and side was identified and marked in preoperative holding area. Consent was reviewed and obtained. The risks, complications and alternatives to the procedure were explained to the patient in detail and all questions were answered. DESCRIPTION OF PROCEDURE: The patient was brought to the operating room and placed on the operating room table in the supine position. Monitored anesthesia care was carried out by the anesthesia team. Preoperative injection of 20 mL of 1:1 mixture of 1% lidocaine plain, 0.5% Marcaine plain was injected into the right foot. Right foot was prepped and draped in the normal sterile fashion. A tourniquet was applied to the right ankle but was not utilized during the procedure. First, a dorsal incision was made at the previous 3rd toe amputation site. Dissection was carried to the remaining metatarsal. It was noted there was erosive changes of the metatarsal head. The soft tissue attachments were erased and a metatarsal bone was excised using sagittal saw. Following this, the planar foot was inspected. There was an area of necrotic tissue in the central arch. An incision was made into the site with a #15 blade and purulent fluid was noted. Cultures swabs were taken. Using a #15 blade and rongeur, necrotic tissue was debrided. Following this, 3000 liters of pulsed irrigation was irrigated through the wound until no further purulence or significant necrotic tissue was identified. The wounds were packed with saline gauze and dry dressing. The patient was brought to the postanesthesia care unit (PACU), vital signs stable, neurovascular status intact. The patient will be admitted to the floor for continued antibiotics and await culture results. Will follow with dictation.
[2020-02-08 20:00] VITALS: BP 152/70
[2020-02-08] MEDS: ACETAMINOPHEN 500 MG TAB PO PRN (20:44)
[2020-02-08] MEDS: ASPIRIN 81 MG ENTERIC TAB PO SCH (20:44)
[2020-02-08] MEDS: ramipriL 5 MG CAP PO SCH (20:47)
[2020-02-09] VITALS: BP 137/63
[2020-02-09] MEDS: PIPERACILLIN/TAZOBACTAM SOD 2.25 GM in D5W MINI-BAG PLUS 50 ML IV SCH ×4 (01:53→18:17)
[2020-02-09 04:00] VITALS: BP 131/60
[2020-02-09 04:25] LABS: BASO % 0.5 % (0.0-1.0); EOS # 0.3 10^3/uL (0.0-0.5); EOS % 3.7 % (0.0-3.0); HEMATOCRIT 28.4 % (42.0-52.0); LYMPH # 1.7 10^3/uL (1.5-5.0); LYMPH % 22.3 % (24.0-44.0); MEAN CORPUSCULAR HGB CONC 31.7 g/dl (32.0-36.5); MEAN CORPUSCULAR VOLUME 91.6 fl (80.0-96.0); MONO # 0.5 10^3/uL (0.0-0.8); MONO % 6.6 % (0.0-5.0); NEUTROPHILS % 66.4 % (36.0-66.0); PLATELET COUNT, AUTOMATED 226 10^3/uL (150-450); WHITE BLOOD COUNT 7.5 10^3/uL (4.0-10.0)
[2020-02-09 04:51] LABS: CALCIUM LEVEL 7.7 MG/DL (8.8-10.2); CREATININE FOR GFR 1.87 MG/DL (0.70-1.30); GLOMERULAR FILTRATION RATE 38.6 (>49); MAGNESIUM LEVEL 2.4 MG/DL (1.8-2.4); POTASSIUM SERUM 4.5 MEQ/L (3.5-5.1)
[2020-02-09] MEDS: METOPROLOL TART 25 MG TABLET PO SCH ×3 (05:45→21:12)
[2020-02-09 08:00] VITALS: BP 160/74
[2020-02-09] MEDS: FUROSEMIDE 20 MG TAB PO SCH (08:15)
[2020-02-09] MEDS: HEPARIN SOD (PORCINE) 5000UNITS/ML 1ML VIAL/SYRINGE SC SCH ×2 (08:15→21:10)
[2020-02-09] MEDS: HumaLOG INSULIN (NovoLOG) PER UNIT SC SCH ×4 (08:16→21:11)
[2020-02-09] MEDS: LEVEMIR (INSULIN DETEMIR) 1 UNITS/0.01ML SC SCH ×2 (08:16→21:10)
[2020-02-09 12:00] VITALS: BP 163/71
--- NOTE | 2020-02-09 14:46 | IPNPDOC ---
Text Note Date of Service The patient was seen on 02/09/20. NOTE Subjective: No any acute events overnight. Constipation resolved yesterday Patient denied fever, chills, nausea, vomiting, chest pain, palpitations diarrhea or dysuria VITAL SIGNS: Please see below. GENERAL: awake, alert, NAD HEENT: NCAT, anicteric sclera, YOLANDA NECK: supple, no JVD CARDIOVASCULAR EXAMINATION: NS1S2, regular rate/rhythm RESPIRATORY EXAMINATION: CTA b/l, no wheezes/rales/rhonchi ABDOMINAL EXAMINATION: positive bowel sounds x 4, NT EXTREMITIES: Right foot covered with dressing, +1 pitting edema over the right ankle and erythema NEUROLOGICAL EXAMINATION: AAO x 3, no motor/sensory deficits PSYCHIATRIC EXAMINATION: calm, normal affect Assessment/Plan Patient 65 years old male with past medical history of type 2 diabetes, coronary artery diseases with 2 stents placement, hypertension, chronic kidney diseases presented hospital with right foot cellulitis. 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 In ER patient was found to have leukocytosis of 12.5, no fever, Doppler US shows no evidence of deep venous thrombosis of the right lower extremity femoral popliteal venous system, CRP 13.7, creatinine 1.7. Problems: (1) Cellulitis of right foot There is concern for osteomyelitis CRP is elevated, sedimentation rate 66 x-ray of right foot shows osseous destruction and evidence of osteomyelitis involving the head of the 3rd metatarsal. We can't proceed with MRI given pacemaker Wound culture on 02/06/20 positive for Proteus mirabilis, enterococcus faecalis and aerobes pending DC vancomycin, continue Zosyn Dr. Nj performed debridement on 02/04/20, repeated debridement on 02/07/20 Await bone culture Pain management (2) KIANA (acute kidney injury) Improved Most likely combined prerenal and renal secondary to cellulitis Continue to monitor (3) Diabetes mellitus Diabetes diet Insulin sliding scale I decreased the dose of Detemir 10 units twice a day due to previous episodes of hypoglycemia Atrial fibrillation with rapid ventricular rate Heart rate is under control Patient developed atrial fibrillation with rapid ventricular rate I increased the dose of beta blockers: metoprolol 25 mg 3 times a day Currently patient has sinus rhythm I will hold anticoagulation for now due to debridement on 02/07/20 Hypertension Resolved Continue home cardio protected medications Constipation Continue MiraLAX when necessary Dulcolax Magnesium citrate once Peripheral vascular diseases Doppler ultrasound showed: In the right lower extremity heavily calcified vess els are noted. There is shadowing calcific plaquing in the common femoral artery again noted obscuring some of the lumen as before. There is evidence of a three to one velocity ratio stenosis in the proximal profunda on the right similar to previous. There is a nearly two to one velocity ratio stenosis in the popliteal artery on the right Follow-up with vascular surgeon in the outpatient settings Plan / VTE VTE Prophylaxis Ordered?: Yes VS,Fishbone, I+O VS, Fishbone, I+O Laboratory Tests 02/09/20 03:59 Vital Signs Date Time Temp Pulse Resp B/P (MAP) Pulse Ox O2 Delivery O2 Flow Rate FiO2 02/09/20 13:02 63 163/71 02/09/20 12:00 97.4 16 98 Room Air I&O- Last 24 Hours up to 6 AM 02/09/20 06:00 Intake Total 1386 ml Output Total 1200 ml Balance 186 ml KAVITHA BRITT DO February 09, 2020 14:46
[2020-02-09 16:00] VITALS: BP 166/72
[2020-02-09] MEDS ORDERED: ramipriL 5 MG CAP PO ONE (16:00)
--- NOTE | 2020-02-09 19:56 | IPN ---
DATE: 02/09/2020 Patient seen and examined. Denies new complaints. States his foot is sore but his pain is controlled with the current medication. Vital signs are reviewed. He has remained afebrile. Labs are reviewed. White blood cell count is 7.5. Culture results from the operating room (OR) are pending, and pathology from the OR is pending. LOWER EXTREMITY EXAMINATION: Erythema and edema are reduced. There is minimal necrotic tissue of the plantar wound. ASSESSMENT: A 65-year-old male with osteomyelitis and deep space infection, status post incision and drainage and bone excision. PLAN: Await final culture results. Infectious disease to be consulted for antibiotic choice and duration. Discontinue wet-to-dry dressing. Start Vashe and Hydrofera Blue to plantar wound, dorsal wound gauze dressing only. Patient will be okay to be discharged once home nursing care and antibiotics are established. He should have followup with the wound care center, as well as followup with myself within 1-2 weeks.
[2020-02-09 20:00] VITALS: BP 141/65
[2020-02-09] MEDS: ASPIRIN 81 MG ENTERIC TAB PO SCH (21:09)
[2020-02-10] VITALS: BP 140/72
[2020-02-10] MEDS: PIPERACILLIN/TAZOBACTAM SOD 2.25 GM in D5W MINI-BAG PLUS 50 ML IV SCH ×3 (00:14→12:59)
[2020-02-10 04:00] VITALS: BP 148/76
[2020-02-10 05:31] LABS: BASO % 0.4 % (0.0-1.0); EOS # 0.3 10^3/uL (0.0-0.5); EOS % 3.7 % (0.0-3.0); HEMATOCRIT 28.5 % (42.0-52.0); LYMPH # 1.5 10^3/uL (1.5-5.0); LYMPH % 19.5 % (24.0-44.0); MEAN CORPUSCULAR HEMOGLOBIN 28.8 pg (27.0-33.0); MEAN CORPUSCULAR HGB CONC 31.6 g/dl (32.0-36.5); MEAN CORPUSCULAR VOLUME 91.3 fl (80.0-96.0); MONO # 0.5 10^3/uL (0.0-0.8); MONO % 6.5 % (0.0-5.0); NEUTROPHILS # 5.5 10^3/uL (1.5-8.5); NEUTROPHILS % 69.3 % (36.0-66.0); PLATELET COUNT, AUTOMATED 269 10^3/uL (150-450); RED BLOOD COUNT 3.12 10^6/uL (4.30-6.10); WHITE BLOOD COUNT 7.9 10^3/uL (4.0-10.0)
[2020-02-10 05:48] LABS: CALCIUM LEVEL 7.9 MG/DL (8.8-10.2); CREATININE FOR GFR 1.7 MG/DL (0.70-1.30); GLOMERULAR FILTRATION RATE 43.1 (>49); MAGNESIUM LEVEL 2.1 MG/DL (1.8-2.4); POTASSIUM SERUM 4.5 MEQ/L (3.5-5.1)
[2020-02-10] MEDS: METOPROLOL TART 25 MG TABLET PO SCH ×3 (06:10→21:22)
[2020-02-10 08:00] VITALS: BP 160/72
[2020-02-10] MEDS: HEPARIN SOD (PORCINE) 5000UNITS/ML 1ML VIAL/SYRINGE SC SCH ×2 (08:25→20:10)
[2020-02-10] MEDS: FUROSEMIDE 20 MG TAB PO SCH (08:25)
[2020-02-10] MEDS: ramipriL 5 MG CAP PO SCH ×2 (08:26→20:10)
[2020-02-10] MEDS: LEVEMIR (INSULIN DETEMIR) 1 UNITS/0.01ML SC SCH ×2 (08:26→20:10)
[2020-02-10] MEDS: HumaLOG INSULIN (NovoLOG) PER UNIT SC SCH ×4 (08:26→20:10)
[2020-02-10] MEDS: traMADol 50 MG TAB PO PRN (08:29)
[2020-02-10 12:00] VITALS: BP 154/70
[2020-02-10] MEDS: BISACODYL 5 MG TAB PO PRN (12:59)
[2020-02-10 15:42] LABS: C REACTIVE PROTEIN QUANTITATIV 5.37 MG/DL (0.00-0.30)
[2020-02-10 16:00] VITALS: BP 130/78
--- NOTE | 2020-02-10 16:37 | IPNPDOC ---
Text Note Date of Service The patient was seen on 02/10/20. NOTE Subjective: No any acute events overnight. Patient denied fever, chills, nausea, vomiting, chest pain, palpitations diarrhea or dysuria VITAL SIGNS: Please see below. GENERAL: awake, alert, NAD HEENT: NCAT, anicteric sclera, YOLANDA NECK: supple, no JVD CARDIOVASCULAR EXAMINATION: NS1S2, regular rate/rhythm RESPIRATORY EXAMINATION: CTA b/l, no wheezes/rales/rhonchi ABDOMINAL EXAMINATION: positive bowel sounds x 4, NT EXTREMITIES: Right foot covered with dressing, +1 pitting edema over the right ankle and erythema NEUROLOGICAL EXAMINATION: AAO x 3, no motor/sensory deficits PSYCHIATRIC EXAMINATION: calm, normal affect Assessment/Plan Patient 65 years old male with past medical history of type 2 diabetes, coronary artery diseases with 2 stents placement, hypertension, chronic kidney diseases presented hospital with right foot cellulitis. 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 In ER patient was found to have leukocytosis of 12.5, no fever, Doppler US shows no evidence of deep venous thrombosis of the right lower extremity femoral popliteal venous system, CRP 13.7, creatinine 1.7. Problems: (1) Cellulitis of right foot There is concern for osteomyelitis CRP is elevated, sedimentation rate 66 x-ray of right foot shows osseous destruction and evidence of osteomyelitis involving the head of the 3rd metatarsal. We can't proceed with MRI given pacemaker Wound culture on 02/06/20 positive for Proteus mirabilis, enterococcus faecalis and aerobes pending DC vancomycin, continue Zosyn Dr. Nj performed debridement on 02/04/20, repeated debridement on 02/07/20. Bone pathology positive for osteomyelitis Await bone culture Pain management Appreciate/agree with infectious diseases consult (2) KIANA (acute kidney injury) Improved Most likely combined prerenal and renal secondary to cellulitis Continue to monitor (3) Diabetes mellitus Diabetes diet Insulin sliding scale I decreased the dose of Detemir 10 units twice a day due to previous episodes of hypoglycemia Atrial fibrillation with rapid ventricular rate Heart rate is under control Patient developed atrial fibrillation with rapid ventricular rate I increased the dose of beta blockers: metoprolol 25 mg 3 times a day Currently patient has sinus rhythm Xarelto Hypertension Resolved Continue home cardio protected medications Constipation Continue MiraLAX when necessary Dulcolax Magnesium citrate when necessary Peripheral vascular diseases Doppler ultrasound showed: In the right lower extremity heavily calcified vessels are noted. There is shadowing calcific plaquing in the common femoral artery again noted obscuring some of the lumen as before. There is evidence of a three to one velocity ratio stenosis in the proximal profunda on the right similar to previous. There is a nearly two to one velocity ratio stenosis in the popliteal artery on the right Follow-up with vascular surgeon in the outpatient settings VSBeto, I+O VSBeto, I+O Laboratory Tests 02/10/20 04:25 Vital Signs Date Time Temp Pulse Resp B/P (MAP) Pulse Ox O2 Delivery O2 Flow Rate FiO2 02/10/20 12:00 98.1 60 16 154/70 (98) 99 Room Air I&O- Last 24 Hours up to 6 AM 02/10/20 06:00 Intake Total 890 ml Output Total 2725 ml Balance -1835 ml KAVITHA BRITT DO February 10, 2020 16:37
--- NOTE | 2020-02-10 17:44 | RO ---
DATE OF PROCEDURE: 02/07/2020 PREPROCEDURE DIAGNOSIS: Right foot infection, gangrene. POSTPROCEDURE DIAGNOSIS: Right foot infection, gangrene. PROCEDURE: Right foot incision and drainage with excisional wound debridement including bone. SURGEON: Jeronimo Ludwig DPM AIRCRAFT WORKER: None. ANESTHESIA: Monitored anesthesia care with preoperative injection of 20 mL of a 1:1 mixture of 1% lidocaine plain and 0.50% Marcaine plain. ESTIMATED BLOOD LOSS: Minimal. MATERIALS: #3-0 nylon. SPECIMEN: Right foot 3rd metatarsal bone and necrotic tissue. COMPLICATIONS: None. CONDITION: Stable. Matthew Medina is a 65-year-old male who has ongoing right foot infection. Decision was made to bring him to the operating room for further debridement. Patient's side and site were identified and marked in the preoperative holding area. Consent was reviewed and obtained. All risks, complications, and alternatives to the procedure were explained to the patient and all questions were answered. DESCRIPTION OF PROCEDURE: The patient was brought to the operating room, placed on the operating room table in supine position, monitored anesthesia care was delivered by the anesthesia team. Preoperative injection of 20 mL of a 1:1 mixture of 1% lidocaine plain and 0.50% Marcaine plain were injected into the right foot. The right foot was prepped and draped in a normal sterile fashion. No tourniquet was used during the procedure. Dorsal wound was first inspected. This seemed more or less free of necrotic tissue. The remaining portion of the metatarsal was inspected and did not have obvious signs of infection. A piece of the remaining metatarsal bone was resected using sagittal saw, and this was sent for pathology and culture. The wound was irrigated, and the dorsal incision was closed with #3-0 nylon. Plantar wound was inspected. There was still significant necrotic tissue to the plantar wound. This was debrided using a #15 blade and rongeur, and irrigated with normal saline. No significant purulence was noted. Once the necrotic tissue was more or less resolved, the wound was packed with normal saline gauze and dry gauze dressings were applied. The patient was brought to the post-anesthesia care unit (PACU), vital signs stable, neurovascular status intact. He will be readmitted to the floor for continued antibiotics. We will consult vascular surgery for evaluation. The patient has a history of angioplasty on this side before, and he had recent arterial ultrasound with abnormal results. Will defer for them if any further intervention is warranted at this time.
[2020-02-10] MEDS ORDERED: RIVAROXABAN 20 MG TAB (XARELTO) PO SCH (18:00)
[2020-02-10] MEDS ORDERED: cefTRIAXone SOD 2 GM in D5W MINI-BAG PLUS 50 ML IV SCH (18:00)
[2020-02-10 20:00] VITALS: BP 138/72
[2020-02-10] MEDS: ASPIRIN 81 MG ENTERIC TAB PO SCH (20:09)
[2020-02-10] MEDS: metroNIDAZOLE (FLAGYL) 500MG TABLET PO SCH (21:22)
[2020-02-11] VITALS: BP 134/54
[2020-02-11 04:00] VITALS: BP 138/58
[2020-02-11 04:58] LABS: BASO # 0.1 10^3/uL (0.0-0.2); BASO % 0.6 % (0.0-1.0); EOS # 0.3 10^3/uL (0.0-0.5); EOS % 3.4 % (0.0-3.0); HEMATOCRIT 30.6 % (42.0-52.0); HEMOGLOBIN 9.6 g/dl (13.5-17.5); LYMPH # 1.9 10^3/uL (1.5-5.0); LYMPH % 22.9 % (24.0-44.0); MEAN CORPUSCULAR HEMOGLOBIN 28.7 pg (27.0-33.0); MEAN CORPUSCULAR HGB CONC 31.4 g/dl (32.0-36.5); MEAN CORPUSCULAR VOLUME 91.3 fl (80.0-96.0); MONO # 0.6 10^3/uL (0.0-0.8); MONO % 7.2 % (0.0-5.0); NEUTROPHILS # 5.4 10^3/uL (1.5-8.5); NEUTROPHILS % 65.1 % (36.0-66.0); PLATELET COUNT, AUTOMATED 282 10^3/uL (150-450); RED BLOOD COUNT 3.35 10^6/uL (4.30-6.10); WHITE BLOOD COUNT 8.4 10^3/uL (4.0-10.0)
[2020-02-11 05:19] LABS: CALCIUM LEVEL 8.1 MG/DL (8.8-10.2); CREATININE FOR GFR 1.75 MG/DL (0.70-1.30); GLOMERULAR FILTRATION RATE 41.7 (>49); MAGNESIUM LEVEL 2.1 MG/DL (1.8-2.4); POTASSIUM SERUM 4.6 MEQ/L (3.5-5.1)
[2020-02-11] MEDS: METOPROLOL TART 25 MG TABLET PO SCH ×2 (05:58→14:25)
[2020-02-11] MEDS: metroNIDAZOLE (FLAGYL) 500MG TABLET PO SCH ×2 (05:58→14:25)
[2020-02-11] MEDS ORDERED: SLF 3 ML SYR IV PRN (07:00)
[2020-02-11 08:00] VITALS: BP 139/64
[2020-02-11] MEDS: HumaLOG INSULIN (NovoLOG) PER UNIT SC SCH ×2 (08:14→12:37)
[2020-02-11] MEDS: HEPARIN SOD (PORCINE) 5000UNITS/ML 1ML VIAL/SYRINGE SC SCH (08:15)
[2020-02-11] MEDS: LEVEMIR (INSULIN DETEMIR) 1 UNITS/0.01ML SC SCH (08:15)
[2020-02-11] MEDS: FUROSEMIDE 20 MG TAB PO SCH (08:15)
[2020-02-11] MEDS: ramipriL 5 MG CAP PO SCH (08:18)
[2020-02-11] MEDS ORDERED: cefTRIAXone SOD 2 GM in D5W MINI-BAG PLUS 50 ML IV SCH (09:00)
[2020-02-11] MEDS ORDERED: XARE20TA PO (10:59)
[2020-02-11] MEDS ORDERED: LEVO500T3 PO (10:59)
[2020-02-11] MEDS ORDERED: TRAM50TA2 PO ×2 (10:59→11:19)
[2020-02-11] MEDS ORDERED: FLAG500T PO (10:59)
[2020-02-11 12:00] VITALS: BP 138/60
[2020-02-11] MEDS ORDERED: SLF 3 ML SYR IV SCH (14:00)
[2020-02-11 14:25] VITALS: BP 138/60
--- NOTE | 2020-02-11 16:56 | DS.PDOC ---
Discharge Summary General Date of Admission February 03, 2020 at 12:48 Date of Discharge 02/11/20 Discharge Summary PROCEDURES PERFORMED DURING STAY: [None]. ADMITTING DIAGNOSES: Cellulitis of right foot KIANA (acute kidney injury) Diabetes diet Atrial fibrillation with rapid ventricular rate Hypertension Constipation Peripheral vascular diseases DISCHARGE DIAGNOSES: Cellulitis of right foot KIANA (acute kidney injury) Diabetes diet Atrial fibrillation with rapid ventricular rate Hypertension Constipation Peripheral vascular diseases COMPLICATIONS/CHIEF COMPLAINT: Kiana, Right Foot Infection. HISTORY OF PRESENT ILLNESS: Patient 65 years old male with past medical history of type 2 diabetes, coronary artery diseases with 2 stents placement, hypertension, chronic kidney diseases presented hospital with right foot cellulitis. Patient was sent to the hospital from aerospace quality engineer office when he was found to have swelling of the right foot with erythema. In ER patient was found to have leukocytosis of 12.5, no fever, Doppler US shows no evidence of deep venous thrombosis of the right lower extremity femoral popliteal venous system, CRP 13.7, creatinine 1.7. HOSPITAL COURSE: During hospital stay following issue addressed (1) Cellulitis of right foot CRP is elevated, sedimentation rate 66 x-ray of right foot shows osseous destruction and evidence of osteomyelitis involving the head of the 3rd metatarsal. We can't proceed with MRI given pacemaker Wound culture on 02/06/20 positive for Proteus mirabilis, staphylococci epidermis, enterococcus faecalis and aerobes cocci Patient received treatment with vancomycin and Zosyn. Discharge on the levofloxacin and Flagyl Dr. Nj performed debridement on 02/04/20, repeated debridement on 02/07/20. Bone pathology positive for osteomyelitis bone pathology positive for osteomyelitis Pain management (2) KIANA (acute kidney injury) Improved Most likely combined prerenal and renal secondary to cellulitis Continue to monitor (3) Diabetes diet Insulin sliding scale I decreased the dose of Detemir 10 units twice a day due to previous episodes of hypoglycemia Atrial fibrillation with rapid ventricular rate Heart rate is under control Patient developed atrial fibrillation with rapid ventricular rate I increased the dose of beta blockers: metoprolol 25 mg 3 times a day Currently patient has sinus rhythm Xarelto Peripheral vascular diseases Doppler ultrasound showed: In the right lower extremity heavily calcified vessels are noted. There is shadowing calcific plaquing in the common femoral artery again noted obscuring some of the lumen as before. There is evidence of a three to one velocity ratio stenosis in the proximal profunda on the right similar to previous. There is a nearly two to one velocity ratio stenosis in the popliteal artery on the right Follow-up with vascular surgeon in the outpatient settings DISCHARGE MEDICATIONS: Please see below. ALLERGIES: Please see below. PHYSICAL EXAMINATION ON DISCHARGE: VITAL SIGNS: Please see below. GENERAL: awake, alert, NAD HEENT: NCAT, anicteric sclera, YOLANDA NECK: supple, no JVD CARDIOVASCULAR EXAMINATION: NS1S2, regular rate/rhythm RESPIRATORY EXAMINATION: CTA b/l, no wheezes/rales/rhonchi ABDOMINAL EXAMINATION: positive bowel sounds x 4, NT EXTREMITIES: Right foot covered with dressing, +1 pitting edema over the right ankle and erythema NEUROLOGICAL EXAMINATION: AAO x 3, no motor/sensory deficits PSYCHIATRIC EXAMINATION: calm, normal affect LABORATORY DATA: Please see below. IMAGING: [facility] NAME: ZARINA CALDWELL DATE OF : 1955 AGE: 65 SEX: M REPORT #: [id number] ROOM: [facility] TECHNOLOGIST: MICHELLE DOCTOR: TOÑO BANG DPM Ordered for Date&Time: 02/06/20 1040 cc: [~ rep ct ivnm] Service Date&Time: 02/06/20 1343 This report is in Signed status. If this report is in a DRAFT status it has not yet been reviewed by the radiologist for accuracy. Thank you for having your radiology procedures performed at [facility] RADIOLOGY REPORT Date&Time printed: [~ rep prt dt last] [~ rep prt tm last] Page 2 of 2 [place] [address] RADIOLOGY REPORT This report is in Signed status. If this report is in a DRAFT status it has not yet been reviewed by the radiologist for accuracy. Thank you for having your radiology procedures performed at [facility] RADIOLOGY REPORT Date&Time printed: [~ rep prt dt last] [~ rep prt tm last] Page 1 of 2 History: Peripheral vascular disease. Gangrene. Comparison study October 08, 2019. Findings: Ankle brachial indices could not be accomplished due to noncompressible vessels. In the right lower extremity heavily calcified vessels are noted. There is shadowing calcific plaquing in the common femoral artery again noted obscuring some of the lumen as before. There is evidence of a three to one velocity ratio stenosis in the proximal profunda on the right similar to previous. There is a nearly two to one velocity ratio stenosis in the popliteal artery on the right. Trickle of flow seen in the proximal anterior tibial artery and the distal anterior tibial artery on the right is occluded. Monophasic waveforms are noted at and distal to the proximal superficial femoral artery on the right. On the left a patent iliofemoral bypass graft is seen. The proximal portion is difficult to visualize due to bowel gas. Flow velocity in the proximal portion of the graft is 96 cm/sec, mid graft flow velocity 71 cm/sec, and distal anastomotic flow velocity 86 cm/sec. Biphasic waveforms are noted in the arterial tree in the left lower extremity. Right lower extremity arterial Doppler velocity chart: Right CF A PSV 80 cm/S Profunda 244 Proximal SFA 89 Mid SFA 72 Distal SFA 69 Popliteal 130 Proximal AT A 21 Tibioperoneal trunk 77 Proximal ORTHO RN 37 Distal ORTHO RN 56 Distal AT A occluded Left lower extremity arterial Doppler velocity chart: Left CF A PSV 86 cm/S Profunda 61 Proximal SFA 73 Mid SFA 84 Distal SFA 98 Popliteal 62 Proximal AT A 41 Tibioperoneal trunk 49 Proximal ORTHO RN 23 Distal ORTHO RN 40 Distal AT A 54 Electronically Signed by Tao Arrington MD 02/06/2020 02:30 P DD: Tao Arrington MD 02/06/20 1420 1430 DS: GODFREY 02/06/20 1430 02/06/20 1430 [~ rep ct labl] PROGNOSIS: Fair ACTIVITY: [As tolerated]. DIET: Cardiac DISPOSITION: Home with home health ITEMS TO FOLLOWUP ON ON OUTPATIENT: Follow-up with aerospace quality engineer, vascular surgeon, PCP DISCHARGE CONDITION: [Stable]. TIME SPENT ON DISCHARGE: Greater [id number]. Vital Signs/I&Os Vital Signs Date Time Temp Pulse Resp B/P (MAP) Pulse Ox O2 Delivery O2 Flow Rate FiO2 02/11/20 14:25 65 138/60 02/11/20 12:00 97.5 16 100 Room Air I&O- Last 24 Hours up to 6 AM 02/11/20 06:00 Intake Total 350 ml Output Total 2650 ml Balance -2300 ml Laboratory Data Labs 24H Laboratory Tests 2 02/10/20 16:54: Bedside Glucose (Misc Panel) 188H 02/10/20 20:07: Bedside Glucose (Misc Panel) 196H 02/11/20 04:37: Immature Granulocyte % (Auto) 0.8, Neutrophils (%) (Auto) 65.1, Lymphocytes (%) (Auto) 22.9L, Monocytes (%) (Auto) 7.2H, Eosinophils (%) (Auto) 3.4H, Basophils (%) (Auto) 0.6, Neutrophils # (Auto) 5.4, Lymphocytes # (Auto) 1.9, Monocytes # (Auto) 0.6, Eosinophils # (Auto) 0.3, Basophils # (Auto) 0.1, Nucleated Red Blood Cells % (auto) 0.0, Anion Gap 5L, Glomerular Filtration Rate 41.7L, Calcium Level 8.1L, Magnesium Level 2.1 02/11/20 12:33: Bedside Glucose (Misc Panel) 121H CBC/BMP Laboratory Tests 02/11/20 04:37 FSBS Laboratory Tests Test 02/10/20 16:54 02/10/20 20:07 02/11/20 12:33 Range/Units Bedside Glucose (Misc Panel) 188 196 121 80-115 MG/DL Microbiology Microbiology 02/07/20 Gram Stain - Final, Complete 02/07/20 Abscess Culture - Final, Complete Staphylococcus Epidermidis 02/04/20 Gram Stain - Final, Complete 02/04/20 Wound Culture - Final, Complete Proteus Mirabilis Enterococcus Faecalis 02/04/20 Anaerobic Culture - Final, Complete Anaerobic Cocci 02/03/20 Blood Culture - Final, Complete NO GROWTH AFTER 5 DAYS 02/03/20 Blood Culture - Final, Complete NO GROWTH AFTER 5 DAYS 02/03/20 Blood Culture - Final, Complete NO GROWTH AFTER 5 DAYS Discharge Medications Scheduled Aspirin (Aspirin EC) 81 Mg Tab, 81 MG PO QHS, (Reported) Carvedilol (Carvedilol) 3.125 Mg Tab, 3.125 MG PO BID, (Reported) Collagenase Clostridium Hist. (Santyl) 30 Gm Oint...g., 1 DOSE TOP ASDIRECTED, (Reported) APPLIES IN BETWEEN TOES WITH EACH BANDAGE CHANGE Furosemide (Furosemide) 20 Mg Tablet, 20 MG PO DAILY, (Reported) Insulin Degludec (Tresiba Flextouch U-200) 200 Unit/1 Ml Insuln.pen, 40 UNIT SC QHS, (Reported) Insulin Lispro (Humalog Kwikpen U-100) 100 Unit/1 Ml Insuln.pen, 1 DOSE SC AC, (Reported) PER SLIDING SCALE Levofloxacin (Levofloxacin) 500 Mg Tablet, 500 MG PO DAILY Metronidazole (Flagyl) 500 Mg Tablet, 500 MG PO Q8H Ramipril (Ramipril) 10 Mg Capsule, 10 MG PO QHS, (Reported) Rivaroxaban (Xarelto) 20 Mg Tablet, 20 MG PO DAILY@18 Scheduled PRN Acetaminophen (Acetaminophen) 500 Mg Tablet, 1,000 MG PO Q6H PRN for PAIN, (Reported) Nitroglycerin (Nitrostat) 0.4 Mg Subl, 0.4 MG SL Q5MP PRN for CHEST PAIN, (Reported) Tramadol HCl (Tramadol HCl) 50 Mg Tablet, 50 MG PO Q6HP PRN for MODERATE PAIN (PS 5-7) Allergies Coded Allergies: No Known Allergies (Verified , 03/30/03) KAVITHA BRITT DO February 11, 2020 16:56
--- NOTE | 2020-02-11 17:24 | CR ---
DATE OF CONSULTATION: 02/10/2020 REASON FOR CONSULTATION: Osteomyelitis of the 3rd digit of the right foot. CONSULTING PHYSICIAN: Dr. Sarath Kern HISTORY OF PRESENT ILLNESS: The patient is a 65-year-old male who presented to the hospital on 02/03/2020 with swelling of the right foot erythema. The patient had an amputation of his foot on 12/13/2019 due to gangrene. The patient was seen in his lump room supervisor office on 02/03/2020 and was sent to the hospital for further evaluation. In the emergency department, the patient did have leukocytosis with no fever. He did not have any deep venous thrombosis in the right lower extremity. The patient was then admitted into the hospital for cellulitis. The patient's lump room supervisor took him to the operating room where there was debridement and amputation of the metatarsal head with opening of the wound on the bottom or the plantar surface of the foot. The patient was diagnosed with acute osteomyelitis at that time. The patient has been on Zosyn since 02/03/2020. The patient also received doses of vancomycin that was stopped on 02/05/2020. The patient says today he is feeling better. He thinks he is about ready for discharge. Infectious Disease was called in order to determine antibiotic therapy. PAST MEDICAL HISTORY: 1. Coronary artery disease. 2. Prior myocardial infarction (ID) with ischemic cardiomyopathy. 3. Hypertension. 4. Hyperlipidemia. 5. Diabetes. 6. Anemia of chronic disease. 7. Bilateral carotid bruits. 8. Chronic kidney disease (CKD). 9. Smoking. SURGICAL HISTORY: 1. Laser surgery for left retinal hemorrhage. 2. Left cataract repair in 2000. 3. Heart catheterization with stent in 2000. 4. Right cataract repair in 2008. 5. Aortobifemoral bypass in 2010. 6. Implantable single-chamber implantable cardioverter defibrillator (ICD) in 2014. 7. Angioplasty of the right distal common femoral artery and proximal superficial femoral artery in 2018. 8. Angioplasty of the right superficial femoral artery and popliteal artery, right anterior tibial artery, distal anterior tibial artery and dorsalis pedis arteries in 2018. 9. Right 3rd toe amputation in 2019. FAMILY HISTORY: Mother of diabetes and father after a CVA. SOCIAL HISTORY: The patient smokes cigarettes on a daily basis about 1-2 packs a day. The patient denies alcohol or illicit drug use. The patient lives at home with his , his son and [id number] and their two children. The patient says he used to work at the [employer] but is currently retired. CURRENT INPATIENT MEDICATIONS: - aspirin 81 mg daily - ceftriaxone 2 grams every 24 hours - furosemide 20 mg daily - heparin 5000 units twice a day - Levemir 10 units twice a day - sliding scale insulin - Toprol 25 mg every 8 hours - Flagyl 500 mg every 8 hours - morphine for pain control - ramipril 10 mg every 12 hours - Xarelto 20 mg daily - tramadol as needed for pain - Percocet as needed for pain REVIEW OF SYSTEMS: General: The patient denies fevers, chills or night sweats. HEENT: The patient denies headache, changes in vision or sore throat. Cardiovascular: The patient denies chest pain or palpitations. Respiratory: The patient denies shortness of breath or coughing Gastrointestinal: The patient denies nausea, vomiting or diarrhea. The patient does endorse constipation with no bowel movements for 1 week. Genitourinary: The patient denies any pain or difficulty with urination. Neurologic: The patient denies any numbness or tingling. Extremities: The patient says his legs do appear slightly swollen but better than usual. Skin: The patient denies any rashes or lesions. Lymphatics. The patient denies any lumps in his neck, axilla or groin. PHYSICAL EXAMINATION: Vital Signs: Temperature 98.2, pulse 60, respiratory rate 17, blood pressure 130/78, pulse oximetry 98% on room air. General: The patient is an alert and oriented male patient who was sitting in a bedside chair when we walked into the room. The patient did not appear to be in any acute distress. HEENT: Normocephalic, atraumatic, with anicteric sclerae. Neck was supple with no lymphadenopathy or thyromegaly. Cardiovascular was regular rate and rhythm with no murmurs auscultated. Respiratory was clear to auscultation bilaterally. Abdomen was soft, nontender to palpation with normoactive bowel sounds. Extremities: The patient has a 3rd digit amputation on the right foot. There is also a large wound on the plantar surface of the right foot with tendon exposure that does not have any surrounding erythema. It appears to be reasonably debrided with healthy granulation tissue around the outside of the wound. There is trace pitting edema in bilateral lower extremities. Skin: Other than the foot described above, there does not appear to be any rashes or lesions. LABORATORY STUDIES: White blood cell 7.9, hemoglobin 9.0, hematocrit 28.5, platelet count 269. Sodium 142, potassium 4.5, chloride 109, carbon dioxide 28, BUN 28, creatinine 1.7, glucose 170, calcium 7.9, magnesium 2.1. CRP 5.37. MICROBIOLOGY: The patient's wound on his right foot grew Proteus mirabilis, Enterococcus faecalis, and anaerobic cocci. IMAGING: A duplex ultrasound of the right lower extremity, performed on 02/03/2020, was reported to show no evidence of deep venous thrombosis (DVT) of the right lower extremity femoropopliteal venous system. Fluid in the right inguinal region has decreased since September 2019 exam measuring 4.0 x 0.7 x 2.0. There are two right inguinal lymph nodes seen measure 2.2 x 0.8 x 1.4 and 3.0 x 0.8 x 1.4 cm. An x-ray of the right foot, performed on , was reported to show osseous destruction with evidence of osteomyelitis involving the head of the 3rd metatarsal. A bilateral lower extremity arterial ultrasound, performed on 02/06/2020, was reported to show heavily calcified vessels noted in right lower extremity. There are shadowing calcific plaquing in the common femoral artery again noted obscuring some lumen as before. There is evidence of a 3:1 velocity ratio stenosis in the proximal profunda on the right similar to previous. There is nearly 2:1 velocity ratio stenosis in the popliteal artery on the right. Trickle of flow seen in the proximal anterior tibial artery and the distal anterior tibial artery on the right is occluded. The monophasic waveforms are noted at the distal and proximal superficial femoral artery on the right. On the left a patent iliofemoral bypass graft is seen. The proximal portion is difficult to visualize due to bowel gas. Flow velocity in the proximal portion of the graft is 96 cm/sec, mid graft flow velocity 71 cm/sec, and distal anastomotic flow velocity 86 cm/sec. Biphasic waveforms are noted in the arterial tree in the left lower extremity. ASSESSMENT AND PLAN: The patient is a 65-year-old male who presented with osteomyelitis of the foot, which was debrided by Dr. Ludwig in the operating room, who was diagnosed with acute osteomyelitis. 1. Acute osteomyelitis. Because there is exposed tendon and a large wound on the plantar surface of the right foot, the patient will require at least 4 weeks of IV antibiotics. The patient will be switched to ceftriaxone and Flagyl. A peripherally inserted central catheter (PICC) line has been ordered to be placed so patient can do ceftriaxone once a day in the morning as well as metronidazole by mouth every 8 hours. Once the PICC line is setup the patient can be discharged home. KERRIE
[2020-02-25] MEDS ORDERED: POTA1TAB14 PO (16:05)
[2020-02-25] MEDS ORDERED: ATOR80TA59 PO (16:05)
== END 2020-02-11 16:47 | disposition home or self-care (01) | DRG 501 ==
LOC: M ED 10:12 → M ED INP 12:48 → EEVIPCON 12:48 → ENRESERV 13:19 → M MS5PR 13:35 → M MSPAV 02-05 10:00 → M PCU 02-05 14:04
PROVIDERS: ADMIT Internal Medicine; ATTEND Internal Medicine
PROC: 0Y6T0Z2 Detachment at Right 3rd Toe, Mid, Open Approach (ICD-10-PCS; 2020-02-04)
PROC: 0YBM0ZZ Excision of Right Foot, Open Approach (ICD-10-PCS; principal; 2020-02-04 12:40)
DX: T87.43 Infection of amputation stump, right lower extremity (principal); L03.115 Cellulitis of right lower limb; N17.9 Acute kidney failure, unspecified; E11.52 Type 2 diabetes mellitus with diabetic peripheral angiopathy with gangrene; I50.20 Unspecified systolic (congestive) heart failure; I13.0 Hypertensive heart and chronic kidney disease with heart failure and stage 1 through stage 4 chronic kidney disease, or unspecified chronic kidney disease; M86.271 Subacute osteomyelitis, right ankle and foot; E11.621 Type 2 diabetes mellitus with foot ulcer; N18.9 Chronic kidney disease, unspecified; K59.00 Constipation, unspecified; I48.91 Unspecified atrial fibrillation; I25.10 Atherosclerotic heart disease of native coronary artery without angina pectoris; Z95.2 Presence of prosthetic heart valve; Z79.82 Long term (current) use of aspirin; Z79.899 Other long term (current) drug therapy; E78.5 Hyperlipidemia, unspecified; Y83.5 Amputation of limb(s) as the cause of abnormal reaction of the patient, or of later complication, without mention of misadventure at the time of the procedure

== ENCOUNTER → 2020-03-01 | Outpatient (CLI) | payer MEDICARE ==
[~2020-03-01] MED LIST changes: +ACET-683 PO; +CLOPIDOGREL 75 MG TAB As Ordered ONE; +FLAG500T PO; +HUMA100I5 SC; +ISOVUE-300 61% 50ML VIAL As Ordered ONE; +LEVO500T3 PO; +LIDOCAINE 1% MDV 20ML VIAL As Ordered ONE; +MIDAZOLAM INJ 2MG/2ML VIAL (J2250 PER 1MG) As Ordered ONE; +POTA1TAB14 PO; +TRAM50TA2 PO; +XARE20TA PO; +fentaNYL 100 MCG/2 ML INJECTION (J3010) As Ordered ONE
--- NOTE | 2020-03-01 11:11 | ROOPDOC ---
[facility] Report Of Operation Report of Operation DATE OF PROCEDURE: 03/01/20 PREPROCEDURE DIAGNOSES: Atherosclerosis of the [place] vessels with nonhealing wound right foot POSTPROCEDURE DIAGNOSES: Same PROCEDURE: 1. Ultrasound-guided antegrade access right common femoral artery 2. Right lower extremity arteriogram 3. Angioplasty right popliteal artery and SFA with 4 x 200 Cisco balloon 4. Stent proximal popliteal artery with 4.5 x 80 supera stent and post-dilation with 4 x 200 Cisco balloon 5. Cross chronic total occlusion right anterior tibial artery and angioplasty with 2.5 x 220 Deshawn balloon 6. Completion arteriograms 7. Mynx closure right common femoral artery SURGEON: Vern Gould MD ANESTHESIA: Local anesthesia 8 mL lidocaine. Moderate intravenous conscious sedation was supervised by Dr. Gould. The patient was independently m onitored by a registered nurse assigned to the Department of radiology using automated blood pressure, EKG, and pulse oximetry. The detailed sedation record is permanently stored in the hospital information system. The following is a brief sedation record: Start time 09:11, stop time 10:38, Versed 2 mg IV, fentanyl 100 g IV, heparin 5000 units IV. CONTRAST: 40 mL Isovue-300 INDICATION FOR PROCEDURE: Mr. Medina is a very pleasant 65-year-old gentleman with severe peripheral vascular disease status post aortobifemoral bypass and with recurrent stenosis in the right lower extremity with a nonhealing wound of the right foot. Risks benefits and alternatives to an arteriogram with antegrade access in the right lower extremity and potential intervention were explained to the patient and he was agreeable to proceed. Informed consent was obtained. INTERPRETATION: 1. On ultrasound, the right limb of the aortobifem bypass is patent with good flow under the common femoral artery. There is some plaque at the origin of the superficial femoral artery, but good inflow is noted. 2. On arteriogram of the right lower extremity, the SFA has calcified plaque throughout and is mildly ectatic, but patent. The popliteal artery has several focal stenoses of 60-70%, and a dissection in the midportion as well. Distal to this, the popliteal artery is diminutive but patent. There is excellent runoff through the posterior tibial artery also into the distal foot, and the peroneal artery runs off to the ankle and provides collateral flow into the dorsal pedis artery at the foot. The anterior tibial artery is thready at its origin and then occludes in the upper calf and does not reconstitute. 3. After angioplasty of the popliteal artery in the superficial femoral artery with a 4 x 200 balloon, there was a marked improvement in flow by smoothing out the ectasia in the superficial femoral artery, but there was still plaque and irregularity with flow limitation in the proximal popliteal artery and at the midportion. Distal to this, the vessel was widely patent. After stenting the proximal popliteal artery and postdilated, there was widely patent inflow through the popliteal artery with no flow limitation, no dissection, no embolization, no extravasation noted. 4. After crossing the chronic total occlusion in the right anterior tibial artery and angioplasty the vessel with a 2.5 x 220 Deshawn balloon, there was flow in line all the way to the foot through the anterior tibial artery. It is a little more sluggish than the posterior tibial artery due to limited outflow in the microvasculature of the foot through the dorsal pedis, but there is intact flow all the way through the calf into the foot. No extravasation, embolization, or dissection was noted. REPORT OF OPERATION: The patient was brought to the angiographic suite in stable condition. His bilateral groins were prepped and draped in a sterile fashion. A timeout was performed. Sedation was administered without complication. Local anesthesia was administered to the skin and subcutaneous tissue over the right groin. A microneedle was used to access the right femoral vessel under ultrasound guidance. A wire was passed through this access and the needle was removed. A 4 Kittitian sheath was placed and flushed with saline. Next, a Glidewire was advanced into the SFA and popliteal artery. Right lower extremity arteriograms were performed. Please see interpretation above. Over the wire, we first exchange the sheath for a 6 Kitt[place] sheath and flushed the sheath with saline, and then we angioplasty the entire length of the SFA and the popliteal artery for three-minute inflations with a 4 x 200 Cisco balloon. Following this, there is a marked improvement in flow in the SFA, but still was some flow limitation and dissection in the mid popliteal and more proximal popliteal artery. Change the wire for an O18 Glidewire advantage. We then deployed of 4.5 x 80 supera stent. After stenting this and postdilating with a 4 x 200 balloon, there was a marked improvement in flow with no residual stenosis, no dissection, no extravasation no embolization. We then navigated the Glidewire into the anterior tibial artery and carefully navigated the wire distal into the dorsal pedis artery. It took a while to cross through the chronic total occlusion in the anterior tibial artery, but eventually we were able to get through to the distal vessel. We passed a 2.5 x 220 Deshawn balloon over the wire and then at the dorsal pedis, we confirmed we are in the true lumen with the quick contrast injection. Once we confirmed we're in the true lumen we angioplasty to cross the chronic total occlusion and the entire anterior tibial artery vessel for three- minute inflations and following this there was flow all the way to the ankle and foot. This concluded our procedure. Mynx closure device was deployed at the right common femoral artery with good hemostasis and sterile dressings were applied after 5 minutes of pressure was held. The patient tolerated the procedure and the sedation well and was taken to recovery in stable condition. ESTIMATED BLOOD LOSS: Approximately 2 mL. COMPLICATIONS: None. PLAN: Okay to resume home diet and medications, and restart anticoagulation tomorrow. We will give a one-time does of plavix today in recovery. We will see the patient back in clinic in a week to check his right groin access site. Continue with ambulation as tolerated to improve right lower extremity circulation. We appreciate the upper change participate in the care of this patient. VERN GOULD MD Mar 01, 2020 11:11
[2020-03-01 14:30] VITALS: BP 141/67
== END ==
LOC: M IRPRO 08:29
PROVIDERS: ATTEND Surgery Vascular Surgery
DX: I70.235 Atherosclerosis of native arteries of right leg with ulceration of other part of foot (principal); I70.92 Chronic total occlusion of artery of the extremities
CPT/HCPCS: 37226; 37230; 75710; 99152; 99153; C1725; C1729; C1760; C1769; C1876; C1887; C1894; J1644; J2250; J3010; Q9967

== ENCOUNTER → 2020-03-12 | Outpatient (REF) | payer MEDICARE ==
[~2020-03-12] MED LIST changes: -CLOPIDOGREL 75 MG TAB As Ordered ONE; -ISOVUE-300 61% 50ML VIAL As Ordered ONE; -LIDOCAINE 1% MDV 20ML VIAL As Ordered ONE; -MIDAZOLAM INJ 2MG/2ML VIAL (J2250 PER 1MG) As Ordered ONE; -fentaNYL 100 MCG/2 ML INJECTION (J3010) As Ordered ONE
== END ==
LOC: M LAB REF 17:38
PROVIDERS: ATTEND Surgery
DX: L97.413 Non-pressure chronic ulcer of right heel and midfoot with necrosis of muscle (principal)

== ENCOUNTER → 2020-06-16 | Outpatient (CLI) | payer MEDICARE ==
[~2020-06-16] MED LIST changes: +ISOVUE-300 61% 50ML VIAL As Ordered ONE; +LIDOCAINE 1% MDV 20ML VIAL As Ordered ONE; +MIDAZOLAM INJ 2MG/2ML VIAL (J2250 PER 1MG) As Ordered ONE; +NITROGLYCERIN IN D5W 25MG/250ML (100MCG/ML) As Ordered ONE; +fentaNYL 100 MCG/2 ML INJECTION (J3010) As Ordered ONE
[2020-06-16 08:49] LABS: HEMATOCRIT 42.9 % (42.0-52.0); HEMOGLOBIN 13.4 g/dl (13.5-17.5); MEAN CORPUSCULAR HEMOGLOBIN 30.5 pg (27.0-33.0); MEAN CORPUSCULAR HGB CONC 31.2 g/dl (32.0-36.5); MEAN CORPUSCULAR VOLUME 97.7 fl (80.0-96.0); PLATELET COUNT, AUTOMATED 142 10^3/uL (150-450); RED BLOOD COUNT 4.39 10^6/uL (4.30-6.10); WHITE BLOOD COUNT 7.5 10^3/uL (4.0-10.0)
[2020-06-16 09:12] LABS: CALCIUM LEVEL 8.7 MG/DL (8.8-10.2); CREATININE FOR GFR 1.74 MG/DL (0.70-1.30); POTASSIUM SERUM 3.9 MEQ/L (3.5-5.1)
--- NOTE | 2020-06-16 11:35 | ROOPDOC ---
[facility] Report Of Operation Report of Operation DATE OF PROCEDURE: 06/16/20 PREPROCEDURE DIAGNOSES: Atherosclerosis of the gambell arteries with nonhealing wound right foot POSTPROCEDURE DIAGNOSES: Same PROCEDURE: 1. Ultrasound-guided antegrade access right superficial femoral artery 2. Right lower extremity arteriogram 3. Cross chronic total occlusion right anterior tibial artery and selection arteriogram distal anterior tibial artery and dorsal pedis artery 4. Angioplasty right anterior tibial artery with 2.5 x 220 Deshawn balloon 5. Angioplasty right anterior tibial artery distally into dorsal pedis artery and plantar vessels with 2 x 100 Deshawn balloon, and 2.5 x 220 Deshawn balloon 6. Angioplasty right superficial femoral artery distally with 5 x 100 [place] 7. Completion arteriogram SURGEON: Elmira Gould MD ANESTHESIA: Local anesthesia with 4 mL lidocaine. Moderate intravenous conscious sedation was supervised by Dr. Gould. The patient was independently monitored by a registered nurse assigned to the Department of radiology using automated blood pressure, EKG, and pulse oximetry. The details sedation record is permanently stored in the hospital information system. The following is a brief sedation record: Start time 09:37, stop time 11:13, Versed 1 mg IV, fentanyl 50 g IV, heparin 4000 units IV, nitroglycerin 100 g IV. CONTRAST: 59 mL Isovue-300 INDICATION FOR PROCEDURE: This is a very pleasant 65-year-old patient, tobacco dependent, who has severe end-stage peripheral vascular disease, and a nonhealing wound right foot. He has a history of an aortobifem bypass with an unusual orientation with both limbs tunneled over the left iliac system with the left limb anastomosis the left common femoral artery in the usual orientation, but the right limb then crosses over from the left to the right and it's anastomosed to the right femoral artery. He has a known history of SFA and tibial disease, last arteriogram we stented also the popliteal artery. Risks benefits alternatives were explained due to the patient detail to repeat arteriogram and potential intervention due to worsening of his right foot wound. Patient was agreeable to proceed. Informed consent was obtained. INTERPRETATION: 1. There is heavy calcium throughout the right common femoral and proximal superficial femoral artery noted on ultrasound. However, both vessels are patent with color flow. 2. The right superficial femoral artery is calcified and ectatic throughout, but near Hank's canal for approximately 8 cm there is heavy plaque and some significant corkscrew collaterals, and although there appears to be flow through the vessel, anticipate there is some posterior wall plaque that we are not seeing. This is a minor flow-limiting. 3. The previously placed proximal popliteal artery stent is widely patent. The popliteal artery distally is patent and runs off through widely patent posterior tibial artery and peroneal artery with good flow to the distal foot. The anterior tibial artery occludes near its origin and does not reconstitute at the foot or ankle. 4. After crossing the chronic total occlusion in the anterior tibial artery, arteriogram confirmed during the true lumen but that there was limited runoff through the pedis vessels. Fair angioplasty with a 2.5 x 220 Deshawn balloon, there was flow through the anterior tibial artery but no antegrade flow due to limited runoff. After angioplasty of the dorsal pedis artery and distal anterior tibial artery with the 2 x 100 Deshawn balloon, there still was not adequate runoff despite there being flow through to the distal foot on select arteriogram in the pedal vessels. After repeat arteriogram of the proximal and distal anterior tibial artery and across into the pedal vessels to the distal foot with a 2.5 x 220 Deshawn balloon, the entire vessel was open, but there is some spasm noted at the ankle that was limiting outflow. We attempted to improve this with 100 g of nitroglycerin injected directly into the distal anterior tibial artery, but this did not provide much improvement. However, the vessel has been angioplasty repeatedly and is open along its length, and hopefully this will continue to improve with time. 5. The right superficial femoral artery had rapid flow after angioplasty with a 5 x 200 [place] balloon, but due to heavy plaque there were mild proximal and distal nonflow limiting dissections at the area of angioplasty. Extended repeat angioplasty was performed and completion arteriogram showed rapid flow through the SFA, and no flow-limiting stenoses and no flow limitation for mild dissections. Therefore, we did not stent vessel at this time. There is rapid three-vessel flow to the distal foot. REPORT OF OPERATION: Patient was brought to the angiographic suite in stable condition. Bilateral groins were prepped and draped in a sterile fashion. A timeout was performed. Sedation was administered without complication. Local anesthesia was administered to the skin and subcutaneous tissue over the right femoral vessels. A microneedle was used to access the proximal right superficial femoral artery under ultrasound guidance. A wire was passed through this access under fluoroscopic guidance the needle was removed. A 4 Wallisian sheath was placed and flushed with saline. A right lower extremity arteriogram with runoff was performed, please interpretation above. Glidewire was advanced through this access into the distal popliteal artery and the sheath was exchanged for a 5 Wallisian sheath and flushed with saline. We then exchange the wire for an O18 Glidewire advantage and navigated this down to the anterior tibial artery and into the anterior tibial artery with the assistance of a glide cath. We then navigated the wire into the distal anterior tibial artery and advanced a 2.5 x 220 Deshawn balloon over the wire to the distal ankle. Three-minute inflation angioplasties were performed along the length of the vessel distal to proximal. Following this there was flow proximally, but no outflow therefore no flow through the vessel. We then advanced the wire into the distal foot with some effort, confirmed wearing the true lumen with the quick contrast injection through a 2 x 100 Deshawn balloon, then replaced the wire and angioplasty for three-minute inflation. This provided good flow in the foot, but still no outf low consistent, and we suspected more proximal spasm or remaining stenosis. We replaced the wire and angioplastied again with a 2.5 x 220 Deshawn balloon along the length of the vessel. We also use the balloon across the dorsal foot. We still could not see brisk antegrade flow from the popliteal to distal dorsal pedis through the anterior tibial artery. However, when we injected contrast within the anterior tibial artery itself, the entire vessel appeared widely patent. There was an area at the ankle that appeared to be spasm, versus remaining stenosis, and a second angioplasty for 3 minutes was performed with a 2.5 x 220 Deshawn balloon. Despite this lengthy low-pressure angioplasty, we still had the same area of spasm after repeated angioplasty. 100 nigra grams of nitroglycerin was administered and after 2 minutes a repeat arteriogram was performed and we still had the same area of spasm versus stenosis. I felt that this point we had angioplastied is much is would be useful, and if this was remaining spasm, it should resolve with a bit of time. We then exchange the wire for an O35 wire and angioplastied the distal SFA with a 5 x 200 [place] balloon over the wire for three-minute inflations. Following this, we noted small dissections from the heaviest areas of plaque proximally and distally where balloon was located, and a second angioplasty for 4 minutes was performed. Following this, there was brisk flow through the SFA, and although the dissections were still present they had very little flow and it did not appear to be limiting any flow to the lower extremity. No embolization or extravasation were noted. We did not feel a stent was necessary at this time. Final imaging showed rapid flow to the lower extremity throughout 3 vessels to the foot. A Mynx closure device was deployed at the right femoral vessel under fluoroscopic guidance. Pressure was held for 10 minutes and sterile dressings were applied. The patient was then taken to recovery in stable condition. He tolerated the sedation in the procedure well. ESTIMATED BLOOD LOSS: Approximately 5 mL. COMPLICATIONS: None. PLAN: We will see the patient back in a week to check his groin access site and see how he is doing. It is imperative that he quit smoking for long-term limb preservation and wound healing. In addition to blood flow, smoking cessation, tight glucose control, high-protein diet, and consistent offloading are necess madonna for wound healing. We are hopeful this additional blood flow will be helpful. We appreciate the opportunity to participate in the care of this patient. ELMIRA GOULD MD Jun 16, 2020 11:35
[2020-06-16 15:00] VITALS: BP 146/70
== END ==
LOC: M IRPRO 08:14
PROVIDERS: ATTEND Surgery Vascular Surgery
DX: I70.235 Atherosclerosis of native arteries of right leg with ulceration of other part of foot (principal); I70.92 Chronic total occlusion of artery of the extremities; E11.22 Type 2 diabetes mellitus with diabetic chronic kidney disease; E11.51 Type 2 diabetes mellitus with diabetic peripheral angiopathy without gangrene; E78.00 Pure hypercholesterolemia, unspecified; F17.210 Nicotine dependence, cigarettes, uncomplicated; L97.519 Non-pressure chronic ulcer of other part of right foot with unspecified severity; N18.3 Chronic kidney disease, stage 3 (moderate); Z79.01 Long term (current) use of anticoagulants; Z79.82 Long term (current) use of aspirin; Z79.899 Other long term (current) drug therapy; Z95.0 Presence of cardiac pacemaker
CPT/HCPCS: 37224; 37228; 75710; 80048; 85027; 99152; 99153; C1725; C1729; C1760; C1769; C1887; C1894; J1644; J2250; J3010; Q9967

== ENCOUNTER → 2020-07-21 | Outpatient (CLI) | payer MEDICARE ==
[~2020-07-21] MED LIST changes: -ISOVUE-300 61% 50ML VIAL As Ordered ONE; -LIDOCAINE 1% MDV 20ML VIAL As Ordered ONE; -MIDAZOLAM INJ 2MG/2ML VIAL (J2250 PER 1MG) As Ordered ONE; -NITROGLYCERIN IN D5W 25MG/250ML (100MCG/ML) As Ordered ONE; -fentaNYL 100 MCG/2 ML INJECTION (J3010) As Ordered ONE
--- NOTE | 2020-07-21 12:57 | REP ---
INDICATION: ATHSCL CAS ART OF GIOVANI LEGS WITH INT JULIO C COMPARISON: 05/24/2020. TECHNIQUE: Real time juarez scale and Duplex Doppler evaluation of the bilateral lower extremity arterial vasculature using linear high frequency transducer. FINDINGS: Juarez scale and duplex doppler images demonstrate there is severe scattered plaquing in the bilateral lower extremities. Patient has a aortobifemoral bypass graft. Normal flow velocities are recorded throughout the patent graft. There are diffuse biphasic waveforms. Peak systolic velocity at the aortic anastomosis 110 centimeters/second. Greatest peak systolic velocity on the right bypass graft is distally at 105 centimeter/second and on the left bypass graft is distally at 157 centimeters/second. Monophasic waveforms are seen throughout the right lower extremity. There are biphasic waveforms throughout the left lower extremity with monophasic waveforms in the distal anterior and posterior tibial arteries. A patent right popliteal artery stent is noted. There appears to be approximately 2.7-1 stenosis of the right common femoral artery, 1.7-1 stenosis at the origin of the right profundus artery, 2-1 stenosis of the proximal right superficial femoral artery and approximately 2.6-1 stenosis at the origin of the right superficial femoral artery and sural artery. On the left there is approximately 2-1 stenosis at the origin of the superficial femoral artery, approximately 1.9 to 1 stenosis of the proximal left popliteal artery and approximately 5.6-1 stenosis of the mid left anterior tibial artery. The right anterior tibial artery is occluded proximally, with reconstitution at the level of the ankle. Peak systolic velocities (cm/sec) Common femoral artery: Right 375; Left 190 Profunda femoris: Right 338; Left 140 SFA (proximal): Right 360; Left 266 SFA (mid): Right 95; Left 96 SFA (distal): Right 91; Left 353 Popliteal artery: Right 126; Left 114 OSMEL (prox.): Right occluded; Left 76 Tibioperoneal trunk: Right 120; Left 81 WEB PRESS JOGGER (prox.): Right 80; Left 80 WEB PRESS JOGGER (distal): Right 59; Left 69 OSMEL (distal): Right 21; Left 30 IMPRESSION: Patent aortobifemoral bypass graft with no stenosis. Patent stent right popliteal artery. Bilateral lower extremity arterial stenoses as discussed in detail above. <Electronically signed by Christiano Juarez > 07/21/20 [id number]
== END ==
LOC: M RAD 10:08
PROVIDERS: ATTEND Physician Assistant
DX: I70.235 Atherosclerosis of native arteries of right leg with ulceration of other part of foot (principal); I70.213 Atherosclerosis of native arteries of extremities with intermittent claudication, bilateral legs

== ENCOUNTER → 2021-01-20 | Outpatient (REF) | payer MEDICARE ==
[~2021-01-20] MED LIST changes: +BACT800T5 PO
== END ==
LOC: M LAB REF 15:59
PROVIDERS: ATTEND Surgery
DX: L97.413 Non-pressure chronic ulcer of right heel and midfoot with necrosis of muscle (principal)
CPT/HCPCS: 11044; 87070; 87077; 87186; 88304; G0463

== ENCOUNTER → 2021-01-31 | Outpatient (CLI) | payer MEDICARE | LOC: M LABSMTC 12:42 | PROVIDERS: ATTEND Anesthesiology | DX: Z01.812 Encounter for preprocedural laboratory examination (principal); Z20.822 Contact with and (suspected) exposure to COVID-19 ==

== ENCOUNTER 2021-02-02 10:09 | Day surgery (SDC) | payer MEDICARE ==
[~2021-02-02] VITALS: Ht 175.3 cm; Wt 74.8 kg
[~2021-02-02 10:09] MED LIST changes: -BACT800T5 PO; +LIDOCAINE 1% MDV 20ML VIAL SQ PRN; +LR 1,000 ML IV ONE; +VANCOMYCIN HCL 1,000 MG, VIAL MATE ADAPTER 1 EACH in NS 250 ML IV ONE
[2021-02-02] MEDS ORDERED: VANCOMYCIN 1000MG/20ML VIAL As Ordered ONE (11:10)
[2021-02-02] MEDS ORDERED: HumaLOG INSULIN (NovoLOG) PER UNIT SC ONE (11:55)
[2021-02-02] MEDS ORDERED: BUPIVACAINE HCL 0.5% 30 ML VIAL As Ordered ONE (12:32)
[2021-02-02] MEDS ORDERED: dexameTHASONE 4 MG/ML 1ML VIAL (J1100 PER 1MG) As Ordered ONE (12:33)
[2021-02-02] MEDS ORDERED: LIDOCAINE 1% SDV 30ML VIAL As Ordered ONE (12:33)
[2021-02-02] MEDS ORDERED: propofoL 200 MG/20 ML VIAL As Ordered ONE (13:07)
[2021-02-02] MEDS ORDERED: LIDOCAINE 2% 100MG/5ML SDV (FOR ANES.) As Ordered ONE (13:07)
[2021-02-02] MEDS ORDERED: fentaNYL 100 MCG/2 ML INJECTION (J3010) As Ordered ONE (13:07)
[2021-02-02] MEDS ORDERED: MIDAZOLAM INJ 2MG/2ML VIAL (J2250 PER 1MG) As Ordered ONE (13:08)
[2021-02-02] MEDS ORDERED: BACT800T5 PO (13:14)
[2021-02-02] MEDS ORDERED: HYDR-3713 PO (13:14)
--- NOTE | 2021-02-02 13:36 | RO ---
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 PROCEDURE: Right 5th metatarsal head excision. SURGEON: Dr. Jeronimo Ludwig DIRECTOR OF TRAINING: None. ANESTHESIA: Monitored anesthesia care. Preoperative injection of 16 mL of 1:1 mixture of 1% lidocaine plain and 0.5% Marcaine plain. ESTIMATED BLOOD LOSS: Minimal. MATERIALS: 3-0 nylon. INJECTABLES: None. SPECIMEN: Culture swab, aerobic and anaerobic, and 5th metatarsal head. Matthew Medina is a 66-year-old male who presents with [facility] with right foot osteomyelitis. He has an open wound with exposed bone. He is under care of the wound care center. He presents today for surgical correction. The patient's side and site were identified and marked in the preoperative area. Consent was reviewed and obtained. The risks, complications, and alternatives to the procedure were explained to the patient in detail, and all questions were answered. DESCRIPTION OF PROCEDURE: Patient was brought to the operating room on a stretcher in the supine position. Monitored anesthesia care was delivered by the anesthesia team. Preoperative injection of 16 mL of 1:1 mixture of 1% lidocaine plain and 0.5% Marcaine plain was injected into the right foot. The right foot was prepped and draped in normal sterile fashion. No tourniquet was applied during the procedure. Wound was inspected. There was necrotic bone visible through the ulceration adjacent to the 5th metatarsal head with some purulence. Culture swab was taken of the purulent fluid. Incision was made proximally along the wound margin. Soft tissue attachments to the 5th metatarsal bone were released, and the 5th metatarsal head and neck were excised using sagittal saw. This was sent for pathology. Nonviable tissue was debrided with a rongeur and #10 blade. Site was irrigated with normal saline. Incision was repaired with 3-0 nylon, and wound was packed with dry gauze. Sterile dressings were applied. Patient was brought to postanesthesia care unit (PACU) with vital signs stable, neurovascular status intact. He will be sent home with Bactrim DS tablets and will followup in our office in 2 days.
[2021-02-02 14:41] VITALS: BP 113/53
== END 2021-02-02 14:43 | disposition home or self-care (01) ==
LOC: M SDC 10:09
PROVIDERS: ATTEND Podiatrist Foot & Ankle Surgery
DX: M86.371 Chronic multifocal osteomyelitis, right ankle and foot (principal); L03.031 Cellulitis of right toe; E11.621 Type 2 diabetes mellitus with foot ulcer; I11.0 Hypertensive heart disease with heart failure; I50.9 Heart failure, unspecified; I25.2 Old myocardial infarction; I25.10 Atherosclerotic heart disease of native coronary artery without angina pectoris; Z95.5 Presence of coronary angioplasty implant and graft; Z95.810 Presence of automatic (implantable) cardiac defibrillator; D64.9 Anemia, unspecified; M19.90 Unspecified osteoarthritis, unspecified site; F17.210 Nicotine dependence, cigarettes, uncomplicated; I34.9 Nonrheumatic mitral valve disorder, unspecified; I65.29 Occlusion and stenosis of unspecified carotid artery; I48.0 Paroxysmal atrial fibrillation; Z79.899 Other long term (current) drug therapy; Z79.82 Long term (current) use of aspirin; Z79.4 Long term (current) use of insulin; Z79.01 Long term (current) use of anticoagulants
CPT/HCPCS: 28113; 87070; 87075; 87076; 87077; 87186; 87205; 88304; 88311; J2250; J3010; J3370

== ENCOUNTER → 2021-03-11 | Outpatient (CLI) | payer MEDICARE ==
[~2021-03-11] MED LIST changes: +BACT800T5 PO; -LIDOCAINE 1% MDV 20ML VIAL SQ PRN; -LR 1,000 ML IV ONE; -VANCOMYCIN HCL 1,000 MG, VIAL MATE ADAPTER 1 EACH in NS 250 ML IV ONE
--- NOTE | 2021-03-11 14:42 | REP ---
INDICATION: CLAUDICATION COMPARISON: Able to image the aorto bi femoral bypass graft TECHNIQUE: Bilateral lower extremity arterial ultrasound with doppler FINDINGS: All numeric values represent peak systolic velocities in cm/SEC On the right: The ankle brachial index is unobtainable The right bypass graft to the common femoral artery anastomotic area is is 103-120 INFORMATION ASSURANCE distal to bypass graft: 120 monophasic Profunda: 229 monophasic SFA proximal 146-61 and again to 327 monophasic SFA mid: 121 monophasic SFA distal: 47 monophasic Popliteal: 72-101-78 monophasic OSMEL proximal: 47 monophasic Tibioperoneal trunk not seen RESPIRATORY CARE PRACTITIONER proximal: 24 monophasic RESPIRATORY CARE PRACTITIONER distal: 84 monophasic OSMEL distal: 33 monophasic On the left: The ankle brachial index is not obtainable The bypass graft to the common femoral artery anastomosis 79- INFORMATION ASSURANCE proximal to the bypass graft: 159 biphasic Profunda: 100 biphasic SFA proximal: 130 biphasic SFA mid: 145-98-220 biphasic SFA distal: 113 biphasic Popliteal: 52 biphasic OSMEL proximal: 41 biphasic Tibioperoneal trunk: 59 biphasic RESPIRATORY CARE PRACTITIONER proximal: 45 biphasic RESPIRATORY CARE PRACTITIONER distal: 39 biphasic OSMEL distal: Bidirectional mostly reversed The technologist was unable to image the aorto bi femoral bypass graft with the exception of at the common femoral artery anastomosis. Heavily calcified severe plaque was seen throughout the right lower extremity IMPRESSION: As above <Electronically signed by Jose Koehler > 03/11/21 1368
== END ==
LOC: EEVIPCON 01-21 13:00 → M RAD 12:27
PROVIDERS: ATTEND Physician Assistant
DX: R94.39 Abnormal result of other cardiovascular function study (principal); I70.213 Atherosclerosis of native arteries of extremities with intermittent claudication, bilateral legs; Z95.820 Peripheral vascular angioplasty status with implants and grafts

== ENCOUNTER 2021-11-23 06:08 | Day surgery (SDC) | payer MEDICARE ==
[~2021-11-23] VITALS: Ht 177.8 cm; Wt 69.8 kg
[~2021-11-23 06:08] MED LIST changes: +ENTR1TAB; +FARX1TAB3 PO; -LEVO500T3 PO; +LEVO500T4 PO; +LR 1,000 ML IV ONE; +POTA-151 PO; -POTA20TA6 PO
[2021-11-23] MEDS ORDERED: ceFAZolin SOD 2 GM in IV 1 EA IV ONE (06:45)
[2021-11-23] MEDS ORDERED: MIDAZOLAM INJ 2MG/2ML VIAL (J2250 PER 1MG) As Ordered ONE (06:57)
[2021-11-23] MEDS ORDERED: fentaNYL 100 MCG/2 ML INJECTION As Ordered ONE (06:57)
[2021-11-23] MEDS ORDERED: propofoL 200 MG/20 ML VIAL As Ordered ONE (07:02)
[2021-11-23] MEDS ORDERED: LIDOCAINE 2% 100MG/5ML SDV (FOR ANES.) As Ordered ONE (07:02)
[2021-11-23] MEDS ORDERED: LIDOCAINE 1% MDV 20ML VIAL As Ordered ONE (07:12)
[2021-11-23] MEDS ORDERED: BUPIVACAINE HCL 0.5% 10ML VIAL As Ordered ONE (07:12)
[2021-11-23] MEDS ORDERED: PHENYLephrine 500MCG 5ML (100MCG/ML) SYRINGE As Ordered ONE (07:49)
[2021-11-23] MEDS ORDERED: HYDR-3713 PO (08:09)
[2021-11-23] MEDS ORDERED: BACT800T5 PO (08:09)
[2021-11-23 08:40] VITALS: BP 126/58
== END 2021-11-23 08:50 | disposition home or self-care (01) ==
LOC: M SDC 06:08
PROVIDERS: ATTEND Podiatrist Foot & Ankle Surgery
DX: E11.69 Type 2 diabetes mellitus with other specified complication (principal); E11.52 Type 2 diabetes mellitus with diabetic peripheral angiopathy with gangrene; E11.621 Type 2 diabetes mellitus with foot ulcer; Z89.421 Acquired absence of other right toe(s); E11.40 Type 2 diabetes mellitus with diabetic neuropathy, unspecified; I11.0 Hypertensive heart disease with heart failure; I25.10 Atherosclerotic heart disease of native coronary artery without angina pectoris; I25.2 Old myocardial infarction; Z95.5 Presence of coronary angioplasty implant and graft; I50.9 Heart failure, unspecified; E78.00 Pure hypercholesterolemia, unspecified; Z95.0 Presence of cardiac pacemaker; M19.90 Unspecified osteoarthritis, unspecified site; F17.210 Nicotine dependence, cigarettes, uncomplicated; Z79.899 Other long term (current) drug therapy; Z79.82 Long term (current) use of aspirin; Z79.01 Long term (current) use of anticoagulants; Z79.2 Long term (current) use of antibiotics; Z79.84 Long term (current) use of oral hypoglycemic drugs; Z79.4 Long term (current) use of insulin
CPT/HCPCS: 28810; 88305; 88311; J0690; J2250; J2370; J3010

== ENCOUNTER 2022-01-16 05:04 | Inpatient (IN) | payer MEDICARE ==
[~2022-01-16] VITALS: Ht 177.8 cm; Wt 71.7 kg
[~2022-01-16 05:04] MED LIST changes: -ENTR1TAB; +ENTR1TAB PO; -LR 1,000 ML IV ONE
[2022-01-16 05:44] LABS: BASO # 0.1 10^3/uL (0.0-0.2); BASO % 0.7 % (0.0-1.0); EOS # 0.8 10^3/uL (0.0-0.5); EOS % 10.4 % (0.0-3.0); HEMATOCRIT 31.1 % (42.0-52.0); HEMOGLOBIN 9.6 g/dl (13.5-17.5); LYMPH # 2.7 10^3/uL (1.5-5.0); LYMPH % 35.7 % (24.0-44.0); MEAN CORPUSCULAR HEMOGLOBIN 31.6 pg (27.0-33.0); MEAN CORPUSCULAR HGB CONC 30.9 g/dl (32.0-36.5); MEAN CORPUSCULAR VOLUME 102.3 fl (80.0-96.0); MONO # 0.4 10^3/uL (0.0-0.8); MONO % 5.9 % (2.0-8.0); NEUTROPHILS # 3.5 10^3/uL (1.5-8.5); PLATELET COUNT, AUTOMATED 118 10^3/uL (150-450); RED BLOOD COUNT 3.04 10^6/uL (4.30-6.10); WHITE BLOOD COUNT 7.5 10^3/uL (4.0-10.0)
[2022-01-16 06:04] LABS: CK-MB VALUE MASS 2.9 NG/ML (<3.6); MB/CK RELATIVE INDEX 2.87 (< OR =4)
[2022-01-16] MEDS ORDERED: NS 1,000 ML IV ONE ×2 (06:10→08:10)
[2022-01-16 06:12] LABS: CREATININE FOR GFR 3.76 MG/DL (0.70-1.30); GLOMERULAR FILTRATION RATE 17.2 (>49); POTASSIUM SERUM 4.7 MEQ/L (3.5-5.1)
[2022-01-16] MEDS ORDERED: XARE20TA PO (10:16)
[2022-01-16] MEDS ORDERED: HOME MED LIST COMPLETE! XX SCH (10:20)
[2022-01-16] MEDS ORDERED: CARVedilol 3.125 MG TAB PO ONE (10:30)
[2022-01-16 11:25] LABS: ALT/SGPT 19 U/L (12-78); BILIRUBIN,DIRECT < 0.1 MG/DL (0.0-0.2); BILIRUBIN,TOTAL 0.2 MG/DL (0.2-1.0); TOTAL PROTEIN 5.9 GM/DL (6.4-8.2)
[2022-01-16 11:37] LABS: RSV AMPLIFICATION NEGATIVE (NEGATIVE)
[2022-01-16] MEDS ORDERED: GLUCOSE 4GM CHEW TABLET PO PRN (11:50)
[2022-01-16] MEDS ORDERED: DIGOXIN INJ 0.5 MG/2 ML AMP (J1160) IV ONE (11:50)
[2022-01-16] MEDS ORDERED: GLUCAGON INJ 1MG VIAL SC PRN (11:50)
[2022-01-16] MEDS ORDERED: DEXTROSE 50% 50 ML SYRINGE IV PRN (11:50)
[2022-01-16 12:00] LABS: MAGNESIUM LEVEL 2.7 MG/DL (1.8-2.4)
[2022-01-16] MEDS: HumaLOG INSULIN (NovoLOG) PER UNIT SC SCH ×2 (12:00→17:30)
[2022-01-16 12:20] LABS: OSMOLALITY SERUM 315 MOSM/KG (280-301)
[2022-01-16 12:22] LABS: OSMOLALITY URINE 460 MOSM/KG (50-1400)
[2022-01-16] MEDS: ATORVASTATIN 20 MG TAB PO SCH (12:30)
[2022-01-16 12:39] LABS: POTASSIUM RANDOM URINE 33.2 MEQ/L; SODIUM,RANDOM URINE 63 MEQ/L
[2022-01-16 12:52] LABS: INR 1.22; PROTHROMBIN TIME 15.8 SECONDS (12.7-14.5)
[2022-01-16 12:53] LABS: PARTIAL THROMBOPLASTIN TIME 40.4 SECONDS (25.9-37.0)
[2022-01-16 14:13] LABS: PROTEIN, URINE AUTO NEGATIVE (NEGATIVE)
[2022-01-16 17:27] VITALS: BP 118/58
[2022-01-16] MEDS ORDERED: LEVALBUTEROL 1.25 MG/0.5 ML CONCENTRATE NEB INH PRN (18:05)
[2022-01-16 20:00] VITALS: BP 123/58
[2022-01-16 20:01] VITALS: BP 127/58
[2022-01-16 20:02] VITALS: BP 112/57
[2022-01-16] MEDS ORDERED: HumaLOG INSULIN (NovoLOG) PER UNIT SC SCH (21:00)
[2022-01-17] VITALS (14 sets, daily range): BP systolic 83–159; BP diastolic 51–70
[2022-01-17 04:31] LABS: BASO % 0.7 % (0.0-1.0); EOS # 0.6 10^3/uL (0.0-0.5); EOS % 10.9 % (0.0-3.0); HEMATOCRIT 27.5 % (42.0-52.0); HEMOGLOBIN 8.6 g/dl (13.5-17.5); LYMPH # 2.4 10^3/uL (1.5-5.0); LYMPH % 41.2 % (24.0-44.0); MEAN CORPUSCULAR HEMOGLOBIN 31.7 pg (27.0-33.0); MEAN CORPUSCULAR HGB CONC 31.3 g/dl (32.0-36.5); MEAN CORPUSCULAR VOLUME 101.5 fl (80.0-96.0); MONO # 0.3 10^3/uL (0.0-0.8); MONO % 5.7 % (2.0-8.0); NEUTROPHILS # 2.4 10^3/uL (1.5-8.5); NEUTROPHILS % 41.3 % (36.0-66.0); PLATELET COUNT, AUTOMATED 109 10^3/uL (150-450); RED BLOOD COUNT 2.71 10^6/uL (4.30-6.10); WHITE BLOOD COUNT 5.8 10^3/uL (4.0-10.0)
[2022-01-17 04:49] LABS: CREATININE FOR GFR 2.27 MG/DL (0.70-1.30)
[2022-01-17 04:50] LABS: GLOMERULAR FILTRATION RATE 30.8 (>49); POTASSIUM SERUM 4.5 MEQ/L (3.5-5.1)
[2022-01-17] MEDS: ASPIRIN 81MG ENTERIC TABLET PO SCH (08:25)
[2022-01-17] MEDS: ATORVASTATIN 20 MG TAB PO SCH (08:26)
[2022-01-17] MEDS ORDERED: RIVAROXABAN 20 MG TAB (XARELTO) PO SCH (09:00)
[2022-01-17] MEDS: CARVedilol 3.125 MG TAB PO SCH ×2 (11:47→20:28)
[2022-01-17] MEDS: APIXABAN 5 MG TAB (ELIQUIS) PO SCH ×2 (11:53→20:27)
[2022-01-18 04:00] VITALS: BP_SYST 102; BP_SYST 125; BP_SYST 97; BP_DIAS 51; BP_DIAS 55; BP_DIAS 60
[2022-01-18 06:29] LABS: BASO % 0.7 % (0.0-1.0); EOS # 0.6 10^3/uL (0.0-0.5); EOS % 11.7 % (0.0-3.0); HEMOGLOBIN 8.5 g/dl (13.5-17.5); LYMPH % 36.5 % (24.0-44.0); MEAN CORPUSCULAR HEMOGLOBIN 32.2 pg (27.0-33.0); MEAN CORPUSCULAR HGB CONC 31.5 g/dl (32.0-36.5); MEAN CORPUSCULAR VOLUME 102.3 fl (80.0-96.0); MONO # 0.3 10^3/uL (0.0-0.8); MONO % 5.7 % (2.0-8.0); NEUTROPHILS # 2.5 10^3/uL (1.5-8.5); NEUTROPHILS % 45.2 % (36.0-66.0); PLATELET COUNT, AUTOMATED 111 10^3/uL (150-450); RED BLOOD COUNT 2.64 10^6/uL (4.30-6.10); WHITE BLOOD COUNT 5.5 10^3/uL (4.0-10.0)
[2022-01-18 06:51] LABS: CALCIUM LEVEL 8.1 MG/DL (8.8-10.2); CREATININE FOR GFR 1.99 MG/DL (0.70-1.30); GLOMERULAR FILTRATION RATE 35.9 (>49); POTASSIUM SERUM 4.8 MEQ/L (3.5-5.1)
[2022-01-18 07:55] VITALS: BP 150/67
[2022-01-18] MEDS: ASPIRIN 81MG ENTERIC TABLET PO SCH (08:02)
[2022-01-18] MEDS: ATORVASTATIN 20 MG TAB PO SCH (08:03)
[2022-01-18 08:04] VITALS: BP 150/67
[2022-01-18] MEDS: CARVedilol 3.125 MG TAB PO SCH (08:04)
[2022-01-18] MEDS: APIXABAN 5 MG TAB (ELIQUIS) PO SCH (08:04)
[2022-01-18] MEDS ORDERED: FERR325T3 PO (08:34)
[2022-01-18] MEDS ORDERED: XARE15TA PO (08:34)
== END 2022-01-18 13:10 | disposition home or self-care (01) | DRG 683 ==
LOC: M ED 05:04 → M ED INP 11:44 → ENRESERV 15:39 → M PCU 17:19
PROVIDERS: ADMIT Internal Medicine Nephrology; ATTEND Internal Medicine Nephrology
DX: N17.9 Acute kidney failure, unspecified (principal); I50.22 Chronic systolic (congestive) heart failure; I13.0 Hypertensive heart and chronic kidney disease with heart failure and stage 1 through stage 4 chronic kidney disease, or unspecified chronic kidney disease; I25.5 Ischemic cardiomyopathy; I48.0 Paroxysmal atrial fibrillation; N18.30 Chronic kidney disease, stage 3 unspecified; I25.10 Atherosclerotic heart disease of native coronary artery without angina pectoris; E11.40 Type 2 diabetes mellitus with diabetic neuropathy, unspecified; E11.22 Type 2 diabetes mellitus with diabetic chronic kidney disease; E78.5 Hyperlipidemia, unspecified; J43.9 Emphysema, unspecified; I73.9 Peripheral vascular disease, unspecified; D63.8 Anemia in other chronic diseases classified elsewhere; F17.200 Nicotine dependence, unspecified, uncomplicated; E11.649 Type 2 diabetes mellitus with hypoglycemia without coma; I25.2 Old myocardial infarction; I95.9 Hypotension, unspecified; I70.1 Atherosclerosis of renal artery; Z95.810 Presence of automatic (implantable) cardiac defibrillator; Z95.820 Peripheral vascular angioplasty status with implants and grafts; Z95.5 Presence of coronary angioplasty implant and graft; Z98.42 Cataract extraction status, left eye; Z89.421 Acquired absence of other right toe(s); Z79.82 Long term (current) use of aspirin; Z79.4 Long term (current) use of insulin; Z79.01 Long term (current) use of anticoagulants; Z79.899 Other long term (current) drug therapy

== ENCOUNTER → 2022-06-28 | Outpatient (REF) | payer MEDICARE ==
[~2022-06-28] MED LIST changes: +FERR325T3 PO; +LEVO1TAB39 PO; -LEVO500T4 PO; +XARE15TA PO
[2022-06-28 18:32] LABS: BASO # 0.1 10^3/uL (0.0-0.2); BASO % 1.1 % (0.0-1.0); EOS # 0.6 10^3/uL (0.0-0.5); EOS % 7.3 % (0.0-3.0); HEMATOCRIT 38.6 % (42.0-52.0); LYMPH # 1.9 10^3/uL (1.5-5.0); LYMPH % 25.6 % (24.0-44.0); MEAN CORPUSCULAR HEMOGLOBIN 29.7 pg (27.0-33.0); MEAN CORPUSCULAR HGB CONC 31.1 g/dl (32.0-36.5); MEAN CORPUSCULAR VOLUME 95.5 fl (80.0-96.0); MONO # 0.4 10^3/uL (0.0-0.8); MONO % 4.9 % (2.0-8.0); NEUTROPHILS # 4.6 10^3/uL (1.5-8.5); NEUTROPHILS % 60.8 % (36.0-66.0); PLATELET COUNT, AUTOMATED 188 10^3/uL (150-450); RED BLOOD COUNT 4.04 10^6/uL (4.30-6.10); WHITE BLOOD COUNT 7.6 10^3/uL (4.0-10.0)
[2022-06-28 18:42] LABS: HEMOGLOBIN A1c 8.3 %
[2022-06-28 19:34] LABS: ALBUMIN 3.3 GM/DL (3.2-5.2); BILIRUBIN,TOTAL 0.2 MG/DL (0.2-1.0); CALCIUM LEVEL 8.2 MG/DL (8.8-10.2); CHOLESTEROL RISK RATIO 2.736 (<5); CREATININE FOR GFR 1.79 MG/DL (0.70-1.30); GLOMERULAR FILTRATION RATE 40.4 (>49); MAGNESIUM LEVEL 2.6 MG/DL (1.8-2.4); POTASSIUM SERUM 4.9 MEQ/L (3.5-5.1); THYROID STIMULATING HORMONE 1.5 uIU/ML (0.358-3.740); TOTAL PROTEIN 6.9 GM/DL (6.4-8.2)
[2022-06-28 20:24] LABS: TOTAL 25(OH) VITAMIN D 14.1 NG/ML (30.0-100.0)
== END ==
LOC: M SFHCADAM 15:18
PROVIDERS: ATTEND Physician Assistant Medical
DX: E11.21 Type 2 diabetes mellitus with diabetic nephropathy (principal); F17.218 Nicotine dependence, cigarettes, with other nicotine-induced disorders; N18.31 Chronic kidney disease, stage 3a; E78.2 Mixed hyperlipidemia; I73.9 Peripheral vascular disease, unspecified; I25.10 Atherosclerotic heart disease of native coronary artery without angina pectoris; I48.91 Unspecified atrial fibrillation; I65.23 Occlusion and stenosis of bilateral carotid arteries; D63.8 Anemia in other chronic diseases classified elsewhere

== ENCOUNTER → 2023-01-18 | Outpatient (CLI) | payer MEDICARE | LOC: M ADAMS 08:51 | PROVIDERS: ATTEND Physician Assistant | DX: J20.9 Acute bronchitis, unspecified (principal); J06.9 Acute upper respiratory infection, unspecified; Z95.0 Presence of cardiac pacemaker ==

== ENCOUNTER → 2023-01-23 | Outpatient (REF) | payer MEDICARE ==
[~2023-01-23] MED LIST changes: +POTA-298 PO; -POTA1TAB14 PO
[2023-01-23 13:43] LABS: BASO % 0.7 % (0.0-1.0); EOS # 0.2 10^3/uL (0.0-0.5); EOS % 2.8 % (0.0-3.0); HEMATOCRIT 35.4 % (42.0-52.0); LYMPH # 1.9 10^3/uL (1.5-5.0); MEAN CORPUSCULAR HEMOGLOBIN 30.3 pg (27.0-33.0); MEAN CORPUSCULAR HGB CONC 31.1 g/dl (32.0-36.5); MEAN CORPUSCULAR VOLUME 97.5 fl (80.0-96.0); MONO # 0.4 10^3/uL (0.0-0.8); MONO % 6.6 % (2.0-8.0); NEUTROPHILS % 54.5 % (36.0-66.0); PLATELET COUNT, AUTOMATED 122 10^3/uL (150-450); RED BLOOD COUNT 3.63 10^6/uL (4.30-6.10); WHITE BLOOD COUNT 5.5 10^3/uL (4.0-10.0)
[2023-01-23 13:53] LABS: THYROID STIMULATING HORMONE 25.977 uIU/ML (0.55-4.78)
[2023-01-23 13:54] LABS: TOTAL 25(OH) VITAMIN D 21.7 NG/ML (20.0-100.0)
[2023-01-23 14:00] LABS: ALBUMIN 3.1 G/DL (3.2-5.2); BILIRUBIN,TOTAL 0.2 MG/DL (0.3-1.2); CALCIUM LEVEL 8.1 MG/DL (8.3-10.6); CHOLESTEROL RISK RATIO 2.96 (<5); CREATININE FOR GFR 2.45 MG/DL (0.70-1.30); POTASSIUM SERUM 3.7 MMOL/L (3.5-5.1)
[2023-01-23 14:08] LABS: CREATININE, URINE 87.3 MG/DL
[2023-01-23 14:10] LABS: MAU/CREAT RATIO 285.2 MCG/MG (0.0-30.0)
[2023-01-23 14:27] LABS: HEMOGLOBIN A1c 8.9 % (4.0-6.0)
== END ==
LOC: M SFHCADAM 10:18
PROVIDERS: ATTEND Physician Assistant Medical
DX: E11.65 Type 2 diabetes mellitus with hyperglycemia (principal)

== ENCOUNTER → 2023-04-10 | Outpatient (REF) | payer MEDICARE ==
[2023-04-10 13:04] LABS: BASO # 0.1 10^3/uL (0.0-0.2); BASO % 0.9 % (0.0-1.0); EOS # 0.4 10^3/uL (0.0-0.5); EOS % 5.6 % (0.0-3.0); HEMATOCRIT 38.2 % (42.0-52.0); HEMOGLOBIN 12.1 g/dl (13.5-17.5); LYMPH # 2.6 10^3/uL (1.5-5.0); LYMPH % 38.5 % (24.0-44.0); MEAN CORPUSCULAR HEMOGLOBIN 29.7 pg (27.0-33.0); MEAN CORPUSCULAR HGB CONC 31.7 g/dl (32.0-36.5); MEAN CORPUSCULAR VOLUME 93.9 fl (80.0-96.0); MONO # 0.4 10^3/uL (0.0-0.8); MONO % 5.6 % (2.0-8.0); NEUTROPHILS # 3.3 10^3/uL (1.5-8.5); NEUTROPHILS % 49.1 % (36.0-66.0); PLATELET COUNT, AUTOMATED 130 10^3/uL (150-450); RED BLOOD COUNT 4.07 10^6/uL (4.30-6.10); WHITE BLOOD COUNT 6.6 10^3/uL (4.0-10.0)
[2023-04-10 13:23] LABS: HEMOGLOBIN A1c 11.1 % (4.0-6.0)
[2023-04-10 13:37] LABS: ALBUMIN 3.7 G/DL (3.2-5.2); ALKALINE PHOSPHATASE 90 U/L (46-116); ALT/SGPT 75 U/L (7.0-40); AST/SGOT 64 U/L (<34); BILIRUBIN,TOTAL 0.3 MG/DL (0.3-1.2); BLOOD UREA NITROGEN 77 MG/DL (9-23); CALCIUM LEVEL 8.6 MG/DL (8.3-10.6); CARBON DIOXIDE LEVEL 25 MMOL/L (20-31); CHLORIDE LEVEL 109 MMOL/L (98-107); CHOLESTEROL LEVEL 128 MG/DL (<200); CHOLESTEROL RISK RATIO 2.36 (<5); CREATININE FOR GFR 3.17 MG/DL (0.70-1.30); GLOMERULAR FILTRATION RATE 20.8 (>49); GLUCOSE, FASTING 183 MG/DL (74-106); HDL CHOLESTEROL 54.1 MG/DL (>40); LDL CHOLESTEROL 51.1 MG/DL (<100); NON-HDL-C 73.9 MG/DL; POTASSIUM SERUM 4.4 MMOL/L (3.5-5.1); SODIUM LEVEL 143 MMOL/L (136-145); TOTAL PROTEIN 7.3 G/DL (5.7-8.2); TRIGLYCERIDES LEVEL 114 MG/DL (<150)
[2023-04-10 13:38] LABS: CREATININE, URINE 40.8 MG/DL; MAU/CREAT RATIO 262.2 MCG/MG (0.0-30.0)
[2023-04-10 13:42] LABS: TOTAL 25(OH) VITAMIN D 14.8 NG/ML (20.0-100.0)
[2023-04-10 13:45] LABS: THYROID STIMULATING HORMONE > 150.000 uIU/ML (0.55-4.78)
== END ==
LOC: M SFHCADAM 07:55
PROVIDERS: ATTEND Physician Assistant
DX: E78.2 Mixed hyperlipidemia (principal)

== ENCOUNTER → 2023-05-31 | Outpatient (REF) | payer MEDICARE ==
[2023-05-31 15:56] LABS: FREE T4 0.16 NG/DL (0.89-1.76)
[2023-05-31 15:57] LABS: THYROID PEROXIDASE ANTIBODY < 28.0 U/ML (<60.0); THYROID STIMULATING HORMONE 131.007 uIU/ML (0.55-4.78)
[2023-05-31 16:06] LABS: HEMOGLOBIN A1c 9.6 % (4.0-6.0)
== END ==
LOC: M SFHCADAM 13:34
PROVIDERS: ATTEND Physician Assistant Medical
DX: E11.3299 Type 2 diabetes mellitus with mild nonproliferative diabetic retinopathy without macular edema, unspecified eye (principal); R79.89 Other specified abnormal findings of blood chemistry

== ENCOUNTER → 2023-07-02 | Outpatient (REF) | payer MEDICARE ==
[2023-07-02 18:50] LABS: PERCENT SATURATION 19.7 % (19.7-50.0)
== END ==
LOC: M LAB REF 17:37
PROVIDERS: ATTEND Internal Medicine Nephrology
DX: D50.9 Iron deficiency anemia, unspecified (principal)

== ENCOUNTER 2023-07-05 19:06 | Inpatient (IN) | payer MEDICARE ==
[~2023-07-05] VITALS: Ht 177.8 cm; Wt 71.4 kg
[2023-07-05] MEDS ORDERED: LEVO75TA4 (21:13)
[2023-07-05] MEDS ORDERED: METO1TAB32 (21:13)
[2023-07-05] MEDS ORDERED: ALBU8.5H (21:13)
[2023-07-05] MEDS ORDERED: AMIO200T49 (21:13)
[2023-07-05 21:26] LABS: BASO % 0.5 % (0.0-1.0); EOS # 0.1 10^3/uL (0.0-0.5); EOS % 1.2 % (0.0-3.0); HEMATOCRIT 30.1 % (42.0-52.0); HEMOGLOBIN 9.7 g/dl (13.5-17.5); LYMPH # 0.9 10^3/uL (1.5-5.0); LYMPH % 12.1 % (24.0-44.0); MEAN CORPUSCULAR HEMOGLOBIN 32.3 pg (27.0-33.0); MEAN CORPUSCULAR HGB CONC 32.2 g/dl (32.0-36.5); MEAN CORPUSCULAR VOLUME 100.3 fl (80.0-96.0); MONO # 0.5 10^3/uL (0.0-0.8); MONO % 5.8 % (2.0-8.0); NEUTROPHILS # 6.2 10^3/uL (1.5-8.5); NEUTROPHILS % 80.1 % (36.0-66.0); PLATELET COUNT, AUTOMATED 147 10^3/uL (150-450); WHITE BLOOD COUNT 7.8 10^3/uL (4.0-10.0)
[2023-07-05 21:39] LABS: ALBUMIN 3.9 G/DL (3.2-5.2); BILIRUBIN,DIRECT 0.1 MG/DL (<0.4); BILIRUBIN,TOTAL 0.4 MG/DL (0.3-1.2); TOTAL PROTEIN 7.5 G/DL (5.7-8.2)
[2023-07-05] MEDS ORDERED: MORPHINE 2 MG/ML 1ML VIAL IV ONE (21:50)
[2023-07-05 22:44] LABS: RSV AMPLIFICATION NEGATIVE (NEGATIVE)
[2023-07-05] MEDS ORDERED: LIDOCAINE 2% 5ML JELLY UROJET TOP ONE (23:00)
[2023-07-05] MEDS ORDERED: BISACODYL 10MG SUPP PR ONE (23:00)
[2023-07-05] MEDS ORDERED: LR 1,000 ML IV SCH (23:35)
[2023-07-05] MEDS ORDERED: ONDANSETRON 4MG 2ML VIAL IV PRN (23:35)
[2023-07-05] MEDS ORDERED: HYDROMORPHONE HCL 0.5 MG/ 0.5 ML SYRINGE IV PRN ×2 (23:35)
[2023-07-05] MEDS ORDERED: GLUCOSE 4GM CHEW TABLET PO PRN (23:40)
[2023-07-05] MEDS ORDERED: GLUCAGON INJ 1MG VIAL SC PRN (23:40)
[2023-07-05] MEDS ORDERED: CHLORASEPTIC SPRAY MT PRN (23:40)
[2023-07-05] MEDS ORDERED: DEXTROSE 50% 50ML SYRINGE IV PRN (23:40)
[2023-07-06 00:15] VITALS: BP 119/64; TEMP 98.2; O2SAT 95
[2023-07-06] MEDS: INSULIN LISPRO (NovoLOG) PER UNIT SC SCH ×4 (00:39→18:06)
[2023-07-06] MEDS ORDERED: FURO40TA2 PO (00:40)
[2023-07-06] MEDS ORDERED: METO1TAB32 PO (00:40)
[2023-07-06] MEDS ORDERED: XARE15TA PO (00:40)
[2023-07-06] MEDS ORDERED: AMIO200T49 PO (00:40)
[2023-07-06] MEDS ORDERED: ALBU8.5H INH (00:40)
[2023-07-06] MEDS ORDERED: SYNT75TA PO (00:40)
[2023-07-06] MEDS ORDERED: HOME MED LIST COMPLETE! XX SCH (00:45)
[2023-07-06] MEDS ORDERED: ALBUTEROL 90 MCG/ACT 8GM HFA INHALER INH PRN (03:20)
[2023-07-06] MEDS: D5W/0.45% SODIUM CHLORIDE 1,000 ML IV SCH ×2 (05:31→17:52)
[2023-07-06] MEDS: LEVOTHYROXINE 75MCG TABLET (0.075MG) PO SCH (05:32)
[2023-07-06 06:00] VITALS: BP 139/56; TEMP 98.1; O2SAT 98
[2023-07-06 06:10] LABS: HEMATOCRIT 29.3 % (42.0-52.0); HEMOGLOBIN 9.3 g/dl (13.5-17.5); MEAN CORPUSCULAR HEMOGLOBIN 31.7 pg (27.0-33.0); MEAN CORPUSCULAR HGB CONC 31.7 g/dl (32.0-36.5); PLATELET COUNT, AUTOMATED 122 10^3/uL (150-450); RED BLOOD COUNT 2.93 10^6/uL (4.30-6.10); WHITE BLOOD COUNT 5.7 10^3/uL (4.0-10.0)
[2023-07-06 06:45] LABS: CALCIUM LEVEL 8.6 MG/DL (8.3-10.6); CREATININE FOR GFR 3.39 MG/DL (0.70-1.30); GLOMERULAR FILTRATION RATE 19.3 (>49); MAGNESIUM LEVEL 2.5 MG/DL (1.8-2.4); POTASSIUM SERUM 4.6 MMOL/L (3.5-5.1)
[2023-07-06 06:46] LABS: INR 1.41; PROTHROMBIN TIME 16.9 SECONDS (12.5-14.5)
[2023-07-06 08:29] VITALS: BP 131/56
[2023-07-06] MEDS: METOPROLOL SUCC *XL* 25MG TAB (TopROL *XL*) PO SCH (08:31)
[2023-07-06] MEDS: AMIODARONE 200 MG TAB (PACERONE) PO SCH (08:33)
[2023-07-06] MEDS ORDERED: BISACODYL 10MG SUPP PR ONE (10:50)
[2023-07-06] MEDS: DOCUSATE SODIUM 100MG CAPSULE PO SCH ×2 (11:20→21:40)
[2023-07-06] MEDS: SENNA 8.6 MG TAB (SENOKOT) PO SCH ×2 (11:20→21:40)
[2023-07-06 12:21] LABS: APPEARANCE, URINE CLEAR (CLEAR); BACTERIA, URINE AUTO NEGATIVE (NEGATIVE); BILIRUBIN, URINE AUTO NEGATIVE (NEGATIVE); BLOOD, URINE BLOOD 2+ (NEGATIVE); COLOR, URINE YELLOW (YELLOW); GLUCOSE, URINE (UA) AUTO NEGATIVE (NEGATIVE); KETONE, URINE AUTO NEGATIVE (NEGATIVE); LEUKOCYTE ESTERASE, URINE AUTO NEGATIVE (NEGATIVE); NITRITE, URINE AUTO NEGATIVE (NEGATIVE); PROTEIN, URINE AUTO 1+ mg/dL (NEGATIVE); RBC, URINE AUTO 3 /HPF (0-3); SPECIFIC GRAVITY URINE AUTO 1.011 (1.002-1.035); SQUAMOUS EPITHELIAL CELL UR AU 0 /HPF (0-6); UROBILINOGEN, URINE AUTO 0.2 mg/dL (0.0-2.0); WBC, URINE AUTO 0 /HPF (0-3)
[2023-07-06 14:00] VITALS: BP 112/48; TEMP 98.2; O2SAT 97
[2023-07-06 20:32] VITALS: BP 129/60; TEMP 98.6; O2SAT 96
[2023-07-06] MEDS ORDERED: LEVEMIR (INSULIN DETEMIR) 1 UNITS/0.01ML SC SCH (21:00)
[2023-07-07] MEDS: INSULIN LISPRO (NovoLOG) PER UNIT SC SCH ×2 (00:11→05:21)
[2023-07-07 05:19] VITALS: BP_SYST 120; BP_SYST 127; BP_DIAS 56; TEMP 98.1; O2SAT 99
[2023-07-07] MEDS: LEVOTHYROXINE 75MCG TABLET (0.075MG) PO SCH (05:37)
[2023-07-07 06:17] LABS: BASO % 0.7 % (0.0-1.0); EOS # 0.2 10^3/uL (0.0-0.5); EOS % 2.7 % (0.0-3.0); HEMATOCRIT 31.5 % (42.0-52.0); HEMOGLOBIN 9.9 g/dl (13.5-17.5); LYMPH # 0.7 10^3/uL (1.5-5.0); LYMPH % 12.2 % (24.0-44.0); MEAN CORPUSCULAR HEMOGLOBIN 31.7 pg (27.0-33.0); MEAN CORPUSCULAR HGB CONC 31.4 g/dl (32.0-36.5); MONO # 0.4 10^3/uL (0.0-0.8); MONO % 7.3 % (2.0-8.0); NEUTROPHILS # 4.2 10^3/uL (1.5-8.5); NEUTROPHILS % 76.7 % (36.0-66.0); PLATELET COUNT, AUTOMATED 131 10^3/uL (150-450); RED BLOOD COUNT 3.12 10^6/uL (4.30-6.10); WHITE BLOOD COUNT 5.5 10^3/uL (4.0-10.0)
[2023-07-07 06:37] LABS: CALCIUM LEVEL 8.7 MG/DL (8.3-10.6); CREATININE FOR GFR 2.85 MG/DL (0.70-1.30); GLOMERULAR FILTRATION RATE 23.6 (>49); MAGNESIUM LEVEL 2.6 MG/DL (1.8-2.4); POTASSIUM SERUM 4.2 MMOL/L (3.5-5.1)
[2023-07-07 08:50] VITALS: BP 139/60
[2023-07-07] MEDS: AMIODARONE 200 MG TAB (PACERONE) PO SCH (08:50)
[2023-07-07] MEDS: METOPROLOL SUCC *XL* 25MG TAB (TopROL *XL*) PO SCH (08:50)
[2023-07-07] MEDS: SENNA 8.6 MG TAB (SENOKOT) PO SCH (08:50)
[2023-07-07] MEDS: DOCUSATE SODIUM 100MG CAPSULE PO SCH (08:50)
[2023-07-07] MEDS ORDERED: SENN-188 PO (10:30)
== END 2023-07-07 12:47 | disposition home or self-care (01) | DRG 394 ==
LOC: EDBD 19:06 → M ED 19:06 → M ED INP 23:33 → ENRESERV 23:59 → M MSPAV 07-06 00:13
PROVIDERS: ADMIT Internal Medicine; ATTEND Family Medicine
DX: K42.0 Umbilical hernia with obstruction, without gangrene (principal); I50.22 Chronic systolic (congestive) heart failure; N18.4 Chronic kidney disease, stage 4 (severe); I13.0 Hypertensive heart and chronic kidney disease with heart failure and stage 1 through stage 4 chronic kidney disease, or unspecified chronic kidney disease; N17.9 Acute kidney failure, unspecified; F17.210 Nicotine dependence, cigarettes, uncomplicated; I25.10 Atherosclerotic heart disease of native coronary artery without angina pectoris; Z66 Do not resuscitate; I48.91 Unspecified atrial fibrillation; I73.9 Peripheral vascular disease, unspecified; I70.1 Atherosclerosis of renal artery; I77.1 Stricture of artery; E11.22 Type 2 diabetes mellitus with diabetic chronic kidney disease; D64.9 Anemia, unspecified; E11.51 Type 2 diabetes mellitus with diabetic peripheral angiopathy without gangrene; E03.9 Hypothyroidism, unspecified; E78.5 Hyperlipidemia, unspecified; Z98.41 Cataract extraction status, right eye; Z98.42 Cataract extraction status, left eye; Z89.421 Acquired absence of other right toe(s); Z79.82 Long term (current) use of aspirin; Z79.4 Long term (current) use of insulin; Z79.890 Hormone replacement therapy; Z79.899 Other long term (current) drug therapy; Z79.01 Long term (current) use of anticoagulants; Z20.822 Contact with and (suspected) exposure to COVID-19; Z95.5 Presence of coronary angioplasty implant and graft; Z95.810 Presence of automatic (implantable) cardiac defibrillator; Z95.828 Presence of other vascular implants and grafts

== ENCOUNTER → 2023-10-01 | Outpatient (REF) | payer MEDICARE ==
[~2023-10-01] MED LIST changes: +ALBU8.5H; +ALBU8.5H INH; +AMIO200T49; +AMIO200T49 PO; +FURO40TA2 PO; +LEVO75TA4; +METO1TAB32; +METO1TAB32 PO; +SENN-188 PO; +SYNT75TA PO
[2023-10-01 17:42] LABS: BASO % 0.6 % (0.0-1.0); EOS # 0.2 10^3/uL (0.0-0.5); EOS % 3.5 % (0.0-3.0); HEMATOCRIT 32.9 % (42.0-52.0); HEMOGLOBIN 10.2 g/dl (13.5-17.5); LYMPH # 1.6 10^3/uL (1.5-5.0); LYMPH % 24.8 % (24.0-44.0); MEAN CORPUSCULAR HEMOGLOBIN 31.1 pg (27.0-33.0); MEAN CORPUSCULAR VOLUME 100.3 fl (80.0-96.0); MONO # 0.3 10^3/uL (0.0-0.8); MONO % 4.9 % (2.0-8.0); NEUTROPHILS # 4.3 10^3/uL (1.5-8.5); PLATELET COUNT, AUTOMATED 142 10^3/uL (150-450); RED BLOOD COUNT 3.28 10^6/uL (4.30-6.10); WHITE BLOOD COUNT 6.5 10^3/uL (4.0-10.0)
[2023-10-01 18:07] LABS: HEMOGLOBIN A1c 9.4 % (4.0-6.0)
[2023-10-01 18:09] LABS: ALBUMIN 3.7 G/DL (3.2-5.2); BILIRUBIN,TOTAL 0.3 MG/DL (0.3-1.2); CALCIUM LEVEL 8.5 MG/DL (8.3-10.6); CHOLESTEROL RISK RATIO 2.87 (<5); CREATININE FOR GFR 2.68 MG/DL (0.70-1.30); GLOMERULAR FILTRATION RATE 25.3 (>49); LDL CHOLESTEROL 56.4 MG/DL (<100); POTASSIUM SERUM 4.2 MMOL/L (3.5-5.1); THYROID STIMULATING HORMONE 7.717 uIU/ML (0.55-4.78); TOTAL PROTEIN 6.9 G/DL (5.7-8.2)
[2023-10-01 18:10] LABS: TOTAL 25(OH) VITAMIN D 18.2 NG/ML (20.0-100.0)
== END ==
LOC: M SFHCADAM 14:21
PROVIDERS: ATTEND Physician Assistant Medical
DX: E11.3299 Type 2 diabetes mellitus with mild nonproliferative diabetic retinopathy without macular edema, unspecified eye (principal); I25.10 Atherosclerotic heart disease of native coronary artery without angina pectoris; R79.89 Other specified abnormal findings of blood chemistry; Z79.899 Other long term (current) drug therapy

== ENCOUNTER → 2023-11-08 | Outpatient (REF) | payer MEDICARE ==
[2023-11-08 14:16] LABS: HEMATOCRIT 28.7 % (42.0-52.0); HEMOGLOBIN 8.6 g/dl (13.5-17.5); MEAN CORPUSCULAR HEMOGLOBIN 29.3 pg (27.0-33.0); MEAN CORPUSCULAR VOLUME 97.6 fl (80.0-96.0); PLATELET COUNT, AUTOMATED 157 10^3/uL (150-450); RED BLOOD COUNT 2.94 10^6/uL (4.30-6.10); WHITE BLOOD COUNT 5.2 10^3/uL (4.0-10.0)
[2023-11-08 14:38] LABS: CALCIUM LEVEL 8.3 MG/DL (8.3-10.6); CREATININE FOR GFR 3.34 MG/DL (0.70-1.30); GLOMERULAR FILTRATION RATE 19.6 (>49); POTASSIUM SERUM 4.3 MMOL/L (3.5-5.1)
== END ==
LOC: M SFHCADAM 11:25
PROVIDERS: ATTEND Family Medicine
DX: I50.20 Unspecified systolic (congestive) heart failure (principal)

== ENCOUNTER 2023-11-13 15:18 | Emergency (ER) | payer MEDICARE ==
[~2023-11-13] VITALS: Ht 177.8 cm; Wt 84.4 kg
[2023-11-13 17:54] LABS: BASO % 0.6 % (0.0-1.0); EOS # 0.1 10^3/uL (0.0-0.5); EOS % 1.9 % (0.0-3.0); HEMATOCRIT 27.8 % (42.0-52.0); HEMOGLOBIN 8.3 g/dl (13.5-17.5); LYMPH # 0.8 10^3/uL (1.5-5.0); LYMPH % 15.3 % (24.0-44.0); MEAN CORPUSCULAR HEMOGLOBIN 28.7 pg (27.0-33.0); MEAN CORPUSCULAR HGB CONC 29.9 g/dl (32.0-36.5); MEAN CORPUSCULAR VOLUME 96.2 fl (80.0-96.0); MONO # 0.3 10^3/uL (0.0-0.8); MONO % 5.6 % (2.0-8.0); NEUTROPHILS # 3.9 10^3/uL (1.5-8.5); NEUTROPHILS % 76.2 % (36.0-66.0); PLATELET COUNT, AUTOMATED 160 10^3/uL (150-450); RED BLOOD COUNT 2.89 10^6/uL (4.30-6.10); WHITE BLOOD COUNT 5.2 10^3/uL (4.0-10.0)
[2023-11-13 18:22] LABS: LIPASE 31 U/L (12-53)
[2023-11-13 18:25] LABS: ALBUMIN 2.9 G/DL (3.2-5.2); ALKALINE PHOSPHATASE 119 U/L (46-116); ALT/SGPT 46 U/L (7.0-40); AST/SGOT 36 U/L (<34); BILIRUBIN,DIRECT < 0.1 MG/DL (<0.4); BILIRUBIN,TOTAL 0.2 MG/DL (0.3-1.2); BLOOD UREA NITROGEN 100 MG/DL (9-23); CARBON DIOXIDE LEVEL 29 MMOL/L (20-31); CHLORIDE LEVEL 108 MMOL/L (98-107); CREATININE FOR GFR 3.23 MG/DL (0.70-1.30); GLOMERULAR FILTRATION RATE 20.4 (>49); GLUCOSE, FASTING 324 MG/DL (74-106); POTASSIUM SERUM 4.6 MMOL/L (3.5-5.1); SODIUM LEVEL 142 MMOL/L (136-145)
[2023-11-13 18:34] LABS: RSV AMPLIFICATION NEGATIVE (NEGATIVE)
[2023-11-13 19:15] VITALS: BP 139/62
[2023-11-13 19:16] VITALS: TEMP 96.9; O2SAT 98
== END 2023-11-13 19:30 | disposition home or self-care (01) ==
LOC: M ED 15:18
DX: N18.9 Chronic kidney disease, unspecified (principal); J98.11 Atelectasis; R94.31 Abnormal electrocardiogram [ECG] [EKG]; I25.2 Old myocardial infarction; I25.42 Coronary artery dissection; I50.22 Chronic systolic (congestive) heart failure; E11.9 Type 2 diabetes mellitus without complications; I11.0 Hypertensive heart disease with heart failure; E78.5 Hyperlipidemia, unspecified; F17.210 Nicotine dependence, cigarettes, uncomplicated; Z79.899 Other long term (current) drug therapy; Z79.51 Long term (current) use of inhaled steroids; Z79.4 Long term (current) use of insulin

== ENCOUNTER → 2023-12-10 | Outpatient (REF) | payer MEDICARE ==
[2023-12-10 13:56] LABS: CALCIUM LEVEL 8.4 MG/DL (8.3-10.6); CREATININE FOR GFR 3.22 MG/DL (0.70-1.30); GLOMERULAR FILTRATION RATE 20.5 (>49); MAGNESIUM LEVEL 2.6 MG/DL (1.8-2.4); POTASSIUM SERUM 4.2 MMOL/L (3.5-5.1)
== END ==
LOC: M LABDRWAD 12:42
PROVIDERS: ATTEND Physician Assistant
DX: I50.42 Chronic combined systolic (congestive) and diastolic (congestive) heart failure (principal)